=== PATIENT | female | born 1945 | race Caucasian/White ===

== ENCOUNTER 2016-09-23 06:24 | Inpatient (IN) | payer MEDICARE ==
[2016-09-23 08:20] LABS: HEMATOCRIT 45.4 % (36.0-47.0); HEMOGLOBIN 14.9 g/dL (12.0-15.5); HGB HCT DIFFERENCE -0.7; MEAN CORPUSCULAR HEMOGLOBIN 29.1 pg (27.0-33.4); MEAN CORPUSCULAR HGB CONC 32.7 g/dL (32.0-36.0); MEAN CORPUSCULAR VOLUME 89 fl (80-97); RED CELL DISTRIBUTION WIDTH 14.7 % (11.5-14.0); WHITE BLOOD COUNT 11.1 10^3/uL (4.0-10.5)
[2016-09-23 08:35] LABS: LYMPHOCYTES % (MANUAL) 4 % (13-45); TOTAL CELLS COUNTED 100
[2016-09-23 08:36] LABS: BASOPHILS % (MANUAL) 0 % (0-2); EOSINOPHILS % (MANUAL) 4 % (0-6); HYPOCHROMASIA SLIGHT; PLATELET CLUMPS PRESENT
[2016-09-23 09:00] LABS: BLOOD UREA NITROGEN 19 mg/dL (7-20); CALCIUM 9.1 mg/dL (8.4-10.2); CREATININE RESULT 0.66 mg/dL (0.52-1.25); GLUCOSE 99 mg/dL (75-110)
[2016-09-23 09:01] LABS: ALANINE AMINOTRANSFERASE 37 U/L (9-52); ALBUMIN 3.2 g/dL (3.5-5.0); ALKALINE PHOSPHATASE 107 U/L (38-126); ANION GAP 6 (5-19); ASPARTATE AMINO TRANSFERASE 33 U/L (14-36); BILIRUBIN,TOTAL 0.5 mg/dL (0.2-1.3); CARBON DIOXIDE 35 mmol/L (22-30); CHLORIDE 100 mmol/L (98-107); CREATINE KINASE 47 U/L (30-135); POTASSIUM 4.7 mmol/L (3.6-5.0); TOTAL PROTEIN 7.6 g/dL (6.3-8.2)
[2016-09-23 09:12] LABS: CREATINE KINASE MB 2.28 ng/mL (<4.55); TROPONIN I 0.017 ng/mL
[2016-09-23 10:05] LABS: VENOUS BLOOD BASE EXCESS 8.1 mmol/L; VENOUS BLOOD HCO3 39.2 mmol/L (20-32); VENOUS BLOOD PH 7.28 (7.30-7.42)
[2016-09-23 10:07] LABS: APPEARANCE,URINE CLOUDY; BILIRUBIN,URINE NEGATIVE (NEGATIVE); GLUCOSE, URINE NEGATIVE (NEGATIVE); KETONES,URINE NEGATIVE (NEGATIVE); LEUKOCYTE ESTERASE,URINE NEGATIVE (NEGATIVE); NITRITE,URINE NEGATIVE (NEGATIVE); PROTEIN,URINE 30 mg/dL (NEGATIVE); UROBILINOGEN,URINE NEGATIVE mg/dL (<2.0)
[2016-09-23 10:08] LABS: URINE SPECIFIC GRAVITY 1.023
[2016-09-23 10:09] LABS: VENOUS BLOOD PCO2 86.4 mmHg (35-63)
--- NOTE | 2016-09-23 11:04 | EKG REPORT ---
SEVERITY:- NORMAL ECG - SINUS RHYTHM : Confirmed by: Jamal Wu MD 23-Sep-2016 11:03:19
--- NOTE | 2016-09-23 11:44 | ER Document Report ---
ED General - General Chief Complaint: Weakness Stated Complaint: WEAK LEGS TRAVEL OUTSIDE OF THE [place] IN LAST 30 DAYS: No - HPI Patient complains to provider of: generalized weakness Notes: Patient coming in for complaint of generalized weakness. Patient states recent changes to her blood pressure medications from them filled to losartan. Patient states since that time increased weakness. Patient upon arrival some of the very tachypneic and hypoxic was on 2 L nasal cannula. Patient denies any other past medical history. Patient does state she has significant orthopedic surgery to her legs however this was very remote. Patient denies any recent travels fevers chills nausea vomiting chest pain abdominal pain. - Related Data Allergies/Adverse Reactions: nut - unspecified Allergy (Verified 09/23/16 06:45) chocolate Allergy (Uncoded 09/23/16 06:44) wasp Allergy (Uncoded 09/23/16 06:45) Home Medications: Current Home Medications Diazepam [Diazepam] 2 mg PO BID PRN 09/23/16 [History] Losartan Potassium 25 mg PO QAM 09/23/16 [History] Sulindac [Sulindac] 200 mg PO BID 09/23/16 [History] Past Medical History - Social History Smoking Status: Unknown if Ever Smoked Family History: Reviewed & Not Pertinent - Past Medical History Cardiac Medical History: Reports: Hx Hypertension Past Surgical History: Reports: Hx Orthopedic Surgery - left tib/fib Review of Systems - Review of Systems Constitutional: Weakness EENT: No symptoms reported Cardiovascular: No symptoms reported Respiratory: No symptoms reported Gastrointestinal: No symptoms reported Genitourinary: No symptoms reported Female Genitourinary: No symptoms reported Musculoskeletal: No symptoms reported Skin: No symptoms reported Hematologic/Lymphatic: No symptoms reported Neurological/Psychological: No symptoms reported -: Yes All other systems reviewed and negative Physical Exam - Vital signs Vitals: Resp Pulse Ox 32 H 95 09/23/16 06:34 09/23/16 06:34 Interpretation: Hypoxic, Tachypneic - General General appearance: Appears well, Alert Notes: Very obese - HEENT Head: Normocephalic, Atraumatic Eyes: Normal Pupils: PERRL - Respiratory Respiratory status: Tachypnea Chest status: Nontender Breath sounds: Normal Chest palpation: Normal - Cardiovascular Rhythm: Regular Heart sounds: Normal auscultation Murmur: No - Abdominal Inspection: Normal Distension: No distension Bowel sounds: Normal Tenderness: Nontender Organomegaly: No organomegaly - Back Back: Normal, Nontender - Extremities General upper extremity: Normal inspection, Nontender, Normal color, Normal ROM , Normal temperature General lower extremity: Normal inspection, Nontender, Normal color, Normal ROM , Normal temperature, Normal weight bearing, Other - Scars on the lower extremities with venous stasis changes. Bilateral unkept feet. No: Shania's sign - Neurological Neuro grossly intact: Yes Cognition: Normal Orientation: AAOx4 [place] Coma Scale Eye Opening: Spontaneous [place] Coma Scale Verbal: Oriented [place] Coma Scale Motor: Obeys Commands [place] Coma Scale Total: 15 Speech: Normal Motor strength normal: LUE, RUE, LLE, RLE Sensory: Normal - Psychological Associated symptoms: Normal affect, Normal mood - Skin Skin Temperature: Warm Skin Moisture: Dry Skin Color: Normal Course - Re-evaluation Re-evalutation: 09/23/16 15:20 Patient's initial blood gas does show hypercarbia with acidosis. More likely this is a etiology the patient's her last weakness as that everything else is normal. Patient underwent a CTA that was negative this admission chronic changes to the lung. More likely possible etiology would be pickwickian in nature. Patient case was scars with hospitalist for further evaluation. - Vital Signs Vital signs: Temp Pulse Resp BP Pulse Ox 98.3 F 20 147/81 H 97 09/23/16 07:20 09/23/16 14:01 09/23/16 14:01 09/23/16 14:01 - Laboratory Result Diagrams: 09/23/16 07:38 09/23/16 08:30 Laboratory results interpreted by me: 09/23/16 09/23/16 09/23/16 07:38 08:30 08:30 WBC 11.1 H RDW 14.7 H Seg Neuts % (Manual) 84 H Lymphocytes % (Manual) 4 L Abs Neuts (Manual) 9.3 H Abs Lymphs (Manual) 0.4 L VBG pH VBG pCO2 VBG HCO3 Carbon Dioxide 35 H Albumin 3.2 L Urine Protein Urine Blood Salicylates < 1.0 L 09/23/16 09/23/16 09:27 09:40 WBC RDW Seg Neuts % (Manual) Lymphocytes % (Manual) Abs Neuts (Manual) Abs Lymphs (Manual) VBG pH 7.28 L VBG pCO2 86.4 H* VBG HCO3 39.2 H Carbon Dioxide Albumin Urine Protein 30 H Urine Blood LARGE H Salicylates Critical Care Note - Critical Care Note Total time excluding time spent on procedures (mins): 35 Comments: multiple evaluation for hypoxia and tachypnea. Managing BiPAP Discharge - Discharge Clinical Impression: Acute respiratory failure with hypoxia and hypercapnia, Generalized weakness, Chronic venous stasis dermatitis of both lower extremities Morbid obesity Qualifiers: Obesity type: due to excess calories Qualified Code(s): E66.01 - Morbid (severe ) obesity due to excess calories Condition: Good Disposition: ADMITTED INPATIENT Admitting Provider: Mary[facility] Admitted: [facility]
[2016-09-23] MEDS ORDERED: NORMAL SALINE 1000 ML 1,000 ML IV PRN (12:18)
[2016-09-23] MEDS ORDERED: MAGNESIUM HYDROXIDE SUSP 30 ML UDCUP PO PRN (12:18)
[2016-09-23] MEDS ORDERED: ACETAMINOPHEN 325 MG TABLET PO PRN (12:18)
[2016-09-23] MEDS ORDERED: OXYCODONE-ACETAMINOPHEN 5-325 MG TABLET PO PRN (12:18)
[2016-09-23 12:47] LABS: PHOSPHORUS 4.2 mg/dL (2.5-4.5)
[2016-09-23 13:00] LABS: PROTHROMBIN TIME 12.6 SEC (11.4-15.4)
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
[2016-09-23 15:34] LABS: ARTERIAL BLOOD BASE EXCESS 4.3 mmol/L; ARTERIAL BLOOD O2 SATURATION 96.4 % (94-98)
[2016-09-23 15:39] LABS: TROPONIN I < 0.012 ng/mL
[2016-09-23] MEDS: MINERAL OIL/PETROLATUM,WHITE CREAM 114 GM TP SCH (17:51)
[2016-09-23] MEDS: FAMOTIDINE INJ/PF 20 MG/2 ML SDV IV SCH (21:58)
[2016-09-23] MEDS: NYSTATIN TOPICAL POWDER 15 GM TP SCH (22:00)
[2016-09-24 05:11] LABS: ABSOLUTE LYMPHOCYTES (AUTO) 0.4 10^3/uL (0.5-4.7); ABSOLUTE MONOCYTES (AUTO) 0.6 10^3/uL (0.1-1.4); ABSOLUTE NEUT (AUTO) 4.4 10^3/uL (1.7-8.2); BASOPHILS % (AUTO) 0.4 % (0-2); EOSINOPHILS % (AUTO) 0.9 % (0-6); HEMATOCRIT 42.8 % (36.0-47.0); HEMOGLOBIN 13.6 g/dL (12.0-15.5); LYMPHOCYTES % (AUTO) 7.3 % (13-45); MEAN CORPUSCULAR HEMOGLOBIN 28.6 pg (27.0-33.4); MEAN CORPUSCULAR HGB CONC 31.7 g/dL (32.0-36.0); MEAN CORPUSCULAR VOLUME 90 fl (80-97); MONOCYTES % (AUTO) 11.8 % (3-13); RED BLOOD COUNT 4.75 10^6/uL (3.72-5.28); RED CELL DISTRIBUTION WIDTH 14.8 % (11.5-14.0); SEGMENTED NEUTROPHILS % (AUTO) 79.6 % (42-78); WHITE BLOOD COUNT 5.5 10^3/uL (4.0-10.5)
[2016-09-24 05:22] LABS: BLOOD UREA NITROGEN 20 mg/dL (7-20); CALCIUM 8.4 mg/dL (8.4-10.2); CHLORIDE 102 mmol/L (98-107); CHOLESTEROL 150.79 mg/dL (0-200); CREATININE RESULT 0.65 mg/dL (0.52-1.25); Direct HDL 52 mg/dL (>40); GLUCOSE 100 mg/dL (75-110); POTASSIUM 4.6 mmol/L (3.6-5.0); TRIGLYCERIDES 66 mg/dL (<150)
[2016-09-24 05:32] LABS: DIRECT LDL 80 mg/dL (<100)
[2016-09-24 05:33] LABS: ARTERIAL BLOOD BASE EXCESS 3.5 mmol/L; ARTERIAL BLOOD O2 SATURATION 96.8 % (94-98)
[2016-09-24 06:28] LABS: CARBON DIOXIDE 33 mmol/L (22-30); SODIUM 141.7 mmol/L (137-145)
[2016-09-24 06:32] LABS: ANION GAP 7 (5-19)
[2016-09-24] MEDS: ENOXAPARIN SODIUM INJ 40 MG/0.4 ML DISP.SYRIN SUBCUT SCH (08:40)
[2016-09-24] MEDS: DOCUSATE SODIUM 100 MG CAPSULE PO SCH (09:11)
[2016-09-24] MEDS: NYSTATIN TOPICAL POWDER 15 GM TP SCH ×2 (09:13→22:32)
[2016-09-24] MEDS: FAMOTIDINE INJ/PF 20 MG/2 ML SDV IV SCH ×2 (09:19→22:32)
[2016-09-24] MEDS: ONDANSETRON HCL INJ/PF 4 MG/2 ML SDV IV PRN ×2 (10:07→22:32)
[2016-09-24] MEDS ORDERED: METOPROLOL TARTRATE PF/INJ 5 MG/5 ML SDV IV PRN (10:56)
--- NOTE | 2016-09-24 14:16 | PDOC PROGRESS REPORT ---
Subjective Progress Note for:: 09/24/16 Subjective:: Reason for visit: Follow-up hypercapnic respiratory failure Hospital course: MANNY GLOVER is a 71 year old female patient of Dr. Croft in [place] who presents to the emergency department with a one-week history of progressive weakness, daytime sleepiness, nighttime restlessness and insomnia, intermittent confusion and forgetfulness. She denies fevers, chills, chest pain, palpitations, orthopnea, PND, abdominal pain, nausea, vomiting, diarrhea or constipation. She reports her PCP recently made a change from chronic Ramipril use to losartan because she was convinced it was making her sleepy. She states she would randomly fall asleep during the course of the day and was taking naps for the first time in her life over the course of the last month. Evaluation in the emergency department shows a chronically ill-appearing, small in stature and morbidly obese female with worsening chronic venous stasis and a venous blood gas that shows a pH of 7.28 and a PCO2 of 82 and a renal panel with a bicarbonate of 35. She was placed empirically on BiPAP therapy and we were asked to admit for further evaluation. She reports no prior cardiac history including no congestive heart failure, coronary artery disease or prior cardiac evaluation. Likewise she has never undergone sleep study or been diagnosed with restrictive sleep apnea. She denies episodic waking during the night, snoring, dyspnea with exertion, chronic headaches, myoclonic jerks. She does not take chronic NSAIDs other than the sulindac once or twice a week for chronic low back pain. She is a lifetime nonsmoker. There is a strong family history of thromboembolic disease , her mother in particular suffers from "blood clots". She was admitted to the hospital and has been largely BiPAP dependent since but with little in the way of improvement in her PCO2 or pH. However there's been no decline in her mental status and she has been alert oriented and functional since before admission. CT of the chest showed some chronic interstitial lung disease but no pulmonary embolus and no COPD, offering no explanation for her hypercapnic respiratory failure. Subjective: She does not feel as well this morning with actually increased work of breathing. Of note, her O2 sat was 88% and she was placed on supplemental oxygen by staff overnight with increase in her saturations to consistently greater than 97%. She was only taken off the BiPAP this morning for breakfast and since that time is also feeling a bit nauseous vomiting once into the BiPAP mask, without overt evidence of aspiration as this occurred with her nurse at the bedside. She denies chest pain, palpitations, abdominal pain, headache, dizziness, confusion, numbness or tingling, myoclonic jerks. ROS: per HPI plus a total of 10 systems reviewed, pertinent positives and negatives noted above, remaining systems negative. Physical Exam Vital Signs: Temp Pulse Resp BP Pulse Ox 99.0 F 83 16 143/71 H 98 09/24/16 12:55 09/24/16 12:55 09/24/16 12:55 09/24/16 12:55 09/24/16 12:55 Intake & Output 09/23/16 09/24/16 09/25/16 06:59 06:59 06:59 Intake Total 777 240 Balance 777 240 Weight 107.5 kg PHYSICAL EXAM GENERAL: Mild respiratory distress evidenced by tachypnea with respiratory rate greater than 20 for me; short in stature, well nourished; morbidly obese; alert and oriented to person, place,, situation HEENT: normocephalic, atraumatic; bilateral conjunctival injection, no scleral icterus; oral mucosa dry, poor dentition; normal ROM; large buffalo hump evident with discoloration of the skin folds of the neck RESPIRATORY: Intercostal accessory muscle use, mild increased WOB, good air entry bilaterally; coarse breath sounds bilateral but no wheezes, rales, rhonchi CARDIO: no JVD; RRR; harsh 2/6 systolic murmur at the second left intercostal space; no tachycardia VASCULAR: no carotid bruit; 2+ radial, 1+ DP pulse; diminished normal capillary refill at the great toes GI: soft; nondistended; normal bowel sounds; no rebound, rigidity, guarding; nontender; skin fold of the pannus is moist and foul-smelling and the patient treats this at home by placing a bath towel in the skin fold and changing it every other day, the towel was discolored and foul-smelling, the skin at its inner most fold is macerated, revelaed after cleaning by staffred NEURO: normal patella reflexes; normal sensation; normal motor function; no dysarthria; tongue protrudes midline; MSK: 4/5 strength; normal ROM hips; no tenderness EXTREMITIES: no calf tender; no palpable cords in calf; no clubbing, cyanosis , 2+ pedal edema PSYCH: normal affect, normal mood SKIN: Cool and dry; no petechiae; no telengectasias; no jaundice; chronic acrocyanotic and hypertrophic changes to the skin below the knees, left pretibial skin is badly scarred and misshapen, severely hypertrophic toenails such that the nails of the great toe extend beyond and into the skin of second and third toes Results Laboratory Results: 09/24/16 03:48 09/24/16 03:48 09/23/16 09/24/16 09/24/16 15:20 03:48 03:48 WBC 5.5 RBC 4.75 Hgb 13.6 Hct 42.8 MCV 90 MCH 28.6 MCHC 31.7 L RDW 14.8 H Plt Count 183 Seg Neutrophils % 79.6 H Lymphocytes % 7.3 L Monocytes % 11.8 Eosinophils % 0.9 Basophils % 0.4 Absolute Neutrophils 4.4 Absolute Lymphocytes 0.4 L Absolute Monocytes 0.6 Absolute Eosinophils 0.0 Absolute Basophils 0.0 Carbonic Acid 2.10 H HCO3/H2CO3 Ratio 15:1 ABG pH 7.30 L ABG pCO2 69.8 H* ABG pO2 96.2 ABG HCO3 33.4 H ABG O2 Saturation 96.4 ABG Base Excess 4.3 FiO2 40% Sodium 141.7 Potassium 4.6 Chloride 102 Carbon Dioxide 33 H Anion Gap 7 BUN 20 Creatinine 0.65 Est GFR ( Amer) > 60 Est GFR (Non-Af Amer) > 60 Glucose 100 Calcium 8.4 Triglycerides 66 Cholesterol 150.79 LDL Cholesterol Direct 80 VLDL Cholesterol 13.0 HDL Cholesterol 52 Vitamin B12 945.0 H 09/24/16 04:35 WBC RBC Hgb Hct MCV MCH MCHC RDW Plt Count Seg Neutrophils % Lymphocytes % Monocytes % Eosinophils % Basophils % Absolute Neutrophils Absolute Lymphocytes Absolute Monocytes Absolute Eosinophils Absolute Basophils Carbonic Acid 2.39 H HCO3/H2CO3 Ratio 14:1 ABG pH 7.25 L ABG pCO2 79.5 H* ABG pO2 107.0 H ABG HCO3 33.7 H ABG O2 Saturation 96.8 ABG Base Excess 3.5 FiO2 40% Sodium Potassium Chloride Carbon Dioxide Anion Gap BUN Creatinine Est GFR ( Amer) Est GFR (Non-Af Amer) Glucose Calcium Triglycerides Cholesterol LDL Cholesterol Direct VLDL Cholesterol HDL Cholesterol Vitamin B12 09/23/16 14:50 Troponin I < 0.012 NT-Pro-B Natriuret Pep 261 Labs reviewed, bicarbonate renal panel is largely unchanged, arterial blood gas likewise largely unchanged in spite of BiPAP therapy, BNP is normal, cardiac enzymes negative. Impressions: Chest X-Ray 09/23/16 06:53 IMPRESSION: Hypoventilatory changes. Chest/Abdomen CTA 09/23/16 11:34 IMPRESSION: 1. No PE. 2. Atelectasis. Chronic interstitial lung disease. 3. Small nodule right lower lobe will need followup. Assessment & Plan - Diagnosis (1) Acute hypercapnic respiratory failure Is this a current diagnosis for this admission?: YesPlan: I suspect this is a chronic problem for her as she was not confused or lethargic for me on presentation. I also suspect this likely accounts for the vast majority of her presenting complaints. Awaiting results from echocardiogram this morning looking for pulmonary hypertension, cor pulmonale. I strongly recommend outpatient sleep study for obstructive sleep apnea and as such will consult for his recommendations. Likewise recommend obtaining oxygen saturations of only 88-92% so as not to adversely shift Starling curve against her thereby altering her respiratory drive. Dr. Vidal is reportedly available for consultation on 09/26/2016 and she would likely benefit from formal PFTs to quantify degree of suspected restrictive lung disease. (2) Pickwickian syndrome Is this a current diagnosis for this admission?: YesPlan: As above. (3) Chronic venous stasis dermatitis of both lower extremities Is this a current diagnosis for this admission?: YesPlan: Cover with Eucerin cream daily and monitor for deterioration, adding systemic antibiotic should her condition deteriorate. (4) Morbid obesity Qualifiers: Obesity type: due to excess calories Qualified Code(s): E66.01 - Morbid (severe) obesity due to excess calories Is this a current diagnosis for this admission?: YesPlan: Dietary nutritional counseling. Strongly recommend at least a 10% weight reduction. (5) Generalized weakness Is this a current diagnosis for this admission?: YesPlan: Likely secondary to #1. B12 and TSH levels both within normal limits. (6) Accelerated essential hypertension Is this a current diagnosis for this admission?: YesPlan: Likely worsened by her rest or stress. We will add low-dose beta maura and resume her losartan therapy and titrate to effect. - Time Time Spent with patient: 25-34 minutes Anticipated discharge: Home Within: within 72 hours
[2016-09-24] MEDS: LOSARTAN POTASSIUM 50 MG TABLET PO SCH (14:43)
[2016-09-24] MEDS: METOPROLOL SUCCINATE 25 MG TAB.SR.24H PO SCH (14:43)
[2016-09-24] MEDS: MINERAL OIL/PETROLATUM,WHITE CREAM 114 GM TP SCH (18:11)
--- NOTE | 2016-09-24 18:52 | XCELERA REPORT ---
[address] [address] Transthoracic Echocardiogram Report Name: MANNY GLOVER Age: 71 yrs Gender: Female : 1945 Patient Status: Inpatient Patient Location: [id number]\S\324\S\A Study Date: 09/24/2016 01:45 PM Height: 60 in Weight: 233 lb BSA: 2.0 m2 Procedure: A complete two-dimensional transthoracic echocardiogram was performed (2D, M-mode, spectral and color flow Doppler). The study was technically difficult with many images being suboptimal in quality. Reason For Study: pickwickian syndrome Ordering Physician: ILYA LUIS Performed By: Sunny Wong Interpretation Summary The study was technically difficult with many images being suboptimal in quality. The left ventricular ejection fraction is preserved. There is mild concentric left ventricular hypertrophy. The left ventricle is grossly normal size. Doppler measurements suggest pseudonormalized left ventricular relaxation, which is associated with grade II/IV or mild to moderate diastolic dysfunction Not all wall segments were well visualized. The right ventricular systolic function is normal. The left atrial size is normal. The right atrium is mildly dilated. There is a trace amount of mitral regurgitation There is no mitral valve stenosis. There is no aortic valve stenosis No aortic regurgitation is present. There is a trace or physiologic amount of tricuspid regurgitation Tricuspid regurgitation jet envelope not well defined to measure RV systolic pressure accurately. There is no pericardial effusion. MMode/2D Measurements \T\ Calculations RVDd: 2.2 cm LVIDd: 3.9 cm FS: 29.5 % Ao root diam: 2.8 cm IVSd: 1.1 cm LVIDs: 2.8 cm EDV(Teich): 67.4 ml LVPWd: 0.93 cm ESV(Teich): 28.9 ml Ao root area: 6.3 cm2 EF(Teich): 57.1 % LA dimension: 4.0 cm Doppler Measurements \T\ Calculations MV E max natacha: MV P1/2t max natacha: Ao V2 max: LV V1 max P.3 cm/sec 111.1 cm/sec 206.7 cm/sec 3.0 mmHg MV A max natacha: MV P1/2t: 53.5 msec Ao max PG: LV V1 max: 151.8 cm/sec 17.1 mmHg 86.4 cm/sec MV E/A: 0.74 MVA(P1/2t): 4.1 cm2 MV dec slope: 608.1 cm/sec2 MV dec time: 0.18 sec PA V2 max: TR max natacha: RAP systole: 71.6 cm/sec 204.0 cm/sec 10.0 mmHg PA max P.0 mmHgTR max P.6 mmHg RVSP(TR): 26.6 mmHg Left Ventricle The left ventricle is grossly normal size. There is mild concentric left ventricular hypertrophy. The left ventricular ejection fraction is preserved. Doppler measurements suggest pseudonormalized left ventricular relaxation, which is associated with grade II/IV or mild to moderate diastolic dysfunction. Not all wall segments were well visualized. Right Ventricle The right ventricle is mildly dilated. The right ventricle appears to be hypertrophied. The right ventricular systolic function is normal. Atria The right atrium is mildly dilated. The left atrial size is normal. Interarterial septum not well visualized and not well dopplered. Cannot comment on ASD/PFO presence. Mitral Valve The mitral valve is grossly normal. There is no mitral valve stenosis. There is a trace amount of mitral regurgitation. Aortic Valve The aortic valve is mildly calcified. There is no aortic valve stenosis. No aortic regurgitation is present. Tricuspid Valve The tricuspid valve is not well visualized secondary to technical limitations. There is no tricuspid stenosis. There is a trace or physiologic amount of tricuspid regurgitation. Tricuspid regurgitation jet envelope not well defined to measure RV systolic pressure accurately. Pulmonic Valve The pulmonic valve is not well visualized. Great Vessels The aortic root is not well visualized. The inferior vena cava appeared normal and decreased < 50% with respiration (RAP 10-15 mmHg). Effusions There is no pericardial effusion. : ILYA LUIS > Ugo Canas
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
--- NOTE | 2016-09-24 21:47 | EKG REPORT ---
SEVERITY:- BORDERLINE ECG - SINUS RHYTHM PROBABLE LEFT ATRIAL ABNORMALITY : Confirmed by: Ugo Canas 24-Sep-2016 21:46:08
[2016-09-24 22:11] LABS: ARTERIAL BLOOD BASE EXCESS 7.1 mmol/L; ARTERIAL BLOOD O2 SATURATION 79.4 % (94-98)
[2016-09-25] MEDS ORDERED: METHYLPREDNISOLONE INJ 125 MG/2 ML SDV IV ONE (11:30)
[2016-09-25] MEDS ORDERED: FUROSEMIDE INJ/PF 20 MG/2 ML SDV IV ONE (11:30)
[2016-09-25] MEDS: METOPROLOL SUCCINATE 25 MG TAB.SR.24H PO SCH (11:40)
[2016-09-25] MEDS: LOSARTAN POTASSIUM 50 MG TABLET PO SCH (11:40)
[2016-09-25] MEDS: DOCUSATE SODIUM 100 MG CAPSULE PO SCH (11:40)
[2016-09-25] MEDS: NORMAL SALINE 1000 ML 1,000 ML IV PRN (11:48)
[2016-09-25] MEDS: FAMOTIDINE INJ/PF 20 MG/2 ML SDV IV SCH ×2 (11:51→21:49)
[2016-09-25] MEDS: LEVOFLOXACIN 750 MG/D5W RTU 750 MG/150 ML RTUPB IV SCH (11:52)
[2016-09-25] MEDS: NYSTATIN TOPICAL POWDER 15 GM TP SCH ×2 (11:52→21:52)
[2016-09-25] MEDS: ENOXAPARIN SODIUM INJ 40 MG/0.4 ML DISP.SYRIN SUBCUT SCH (11:53)
[2016-09-25 11:58] LABS: ARTERIAL BLOOD BASE EXCESS 7.8 mmol/L; ARTERIAL BLOOD O2 SATURATION 90.6 % (94-98)
[2016-09-25] MEDS ORDERED: BUDESONIDE NEB 0.5 MG/2 ML AMPUL NEB ONE (12:00)
--- NOTE | 2016-09-25 14:55 | PDOC PROGRESS REPORT ---
Subjective Progress Note for:: 09/25/16 Subjective:: still extremely dyspneic could not tolerate this morning to be off bypap for a few minutes no chest pains or fever Physical Exam Vital Signs: Temp Pulse Resp BP Pulse Ox 98.6 F 84 13 144/67 H 94 09/25/16 11:21 09/25/16 13:32 09/25/16 13:32 09/25/16 11:21 09/25/16 13:32 Pulse Oximeter Continuous Start: 09/24/16 20: 12 Freq: RTQ4 Status: Active Document 09/25/16 11:40 [facility]: 09/25/16 13:52 [facility] [id number] Pulse Oximetry Assessment Oxygen Saturation (92-100) 97 Fraction of Inspired Oxygen (FIO2) 30 Equipment Usage Equipment in Use Continuous SpO2 Machine # N 2 Additional RT Notes Other With 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 ABSENT: scleral icterus Neck exam: ABSENT: carotid bruit, JVD, lymphadenopathy, thyromegaly Respiratory exam: PRESENT: decreased breath sounds, symmetrical, tachypnea, wheezes Cardiovascular exam: PRESENT: RRR. ABSENT: diastolic murmur, rubs, systolic murmur GI/Abdominal exam: PRESENT: normal bowel sounds, soft. ABSENT: distended, guarding, mass, organolmegaly, rebound, tenderness Extremities exam: PRESENT: other - stasis dermatitis Neurological exam: PRESENT: alert, awake, oriented to person, oriented to place , oriented to time, oriented to situation, CN II-XII grossly intact. ABSENT: motor sensory deficit Results Laboratory Results: 09/24/16 03:48 09/24/16 03:48 09/24/16 09/25/16 21:55 10:12 Carbonic Acid 2.26 H 2.63 H HCO3/H2CO3 Ratio 16:1 14:1 ABG pH 7.30 L 7.27 L ABG pCO2 75.1 H* 87.3 H* ABG pO2 49.4 L 70.0 L ABG HCO3 36.5 H 38.7 H ABG O2 Saturation 79.4 L 90.6 L ABG Base Excess 7.1 7.8 FiO2 30% 30% 09/23/16 14:50 Troponin I < 0.012 NT-Pro-B Natriuret Pep 261 Impressions: Chest X-Ray 09/23/16 06:53 IMPRESSION: Hypoventilatory changes. Chest/Abdomen CTA 09/23/16 11:34 IMPRESSION: 1. No PE. 2. Atelectasis. Chronic interstitial lung disease. 3. Small nodule right lower lobe will need followup. Assessment & Plan - Diagnosis (1) Acute hypercapnic respiratory failure Is this a current diagnosis for this admission?: YesPlan: not much improvement continue bipap PRN continue present management will add steroids , continue nebs (2) Chronic venous stasis dermatitis of both lower extremities Is this a current diagnosis for this admission?: Yes (3) Morbid obesity Qualifiers: Obesity type: unspecified obesity type Qualified Code(s): E66.01 - Morbid (severe) obesity due to excess calories Is this a current diagnosis for this admission?: Yes (4) Pickwickian syndrome Is this a current diagnosis for this admission?: Yes - Time Time Spent with patient: 25-34 minutes
[2016-09-25] MEDS: METHYLPREDNISOLONE INJ 125 MG/2 ML SDV IV SCH (17:45)
[2016-09-25] MEDS: MINERAL OIL/PETROLATUM,WHITE CREAM 114 GM TP SCH (17:45)
[2016-09-25] MEDS: IPRATROPIUM/ALBUTEROL 0.5-2.5 MG/3 ML AMPUL NEB PRN (20:36)
[2016-09-25] MEDS: BUDESONIDE NEB 0.5 MG/2 ML AMPUL NEB SCH (20:37)
[2016-09-25] MEDS: FUROSEMIDE INJ/PF 20 MG/2 ML SDV IV SCH (21:49)
--- NOTE | 2016-09-25 22:48 | PDOC PROGRESS REPORT ---
Subjective Progress Note for:: 09/25/16 Subjective:: Patient seems to be doing better with gradual improvement. Patient still however very sleepy and is wearing bilevel therapy. Pt is denying any chest arm or neck discomfort. Patient denying any PND, orthopnea. Patient denied any sustained palpitations, dizziness, syncope, near syncope. Patient denying any fever chills. Patient denying any other significant discomfort. Patient is maintaining sinus rhythm. Patient was more alert, however arterial blood gases obtained later on showed some worsening. Review of systems: Rest review of systems negative. Medications: Medications have been reviewed. Physical Exam Vital Signs: Temp Pulse Resp BP Pulse Ox 98.1 F 100 20 126/66 H 96 09/25/16 19:45 09/25/16 20:37 09/25/16 20:37 09/25/16 19:45 09/25/16 20:37 Pulse Oximeter Continuous Start: 09/24/16 20: 12 Freq: RTQ4 Status: Active Document 09/25/16 20:37 [facility] (Rec: 09/25/16 22:05 [facility] [email or web address]) Pulse Oximetry Assessment Oxygen Saturation (92-100) 96 Oxygen Flow Rate (L/min) 3 Oxygen Delivery Method Nasal Cannula Equipment Usage Equipment in Use Continuous SpO2 Machine # [id number] Intake & Output 09/24/16 09/25/16 09/26/16 06:59 06:59 06:59 Intake Total 777 1016 756 Output Total 0 1000 Balance 777 1016 -244 Weight 107.5 kg 107 kg Exam: GENERAL: well-nourished and in no acute distress. Alert and oriented x3 HEAD: Atraumatic, normocephalic. EYES: Pupils equal round and reactive to light, extraocular movements intact, sclera anicteric, conjunctiva are normal. ENT: TMs normal, nares patent, oropharynx clear without exudates. Moist mucous membranes. No oral ulcerations or bleeding gums noted NECK: supple without lymphadenopathy. Trachea is central. No cervical or axillary lymphadenopathy noted. Carotids are 2+, JVD WNL LUNGS: Respiration seems nonlabored, no significant accessory muscle action noted. Breath sounds clear to auscultation bilaterally and equal noted. No wheezes rales or rhonchi noted. No significant dullness noted on percussion. CHEST: Palpation of the chest wall shows no significant chest wall tenderness. No other significant abnormalities noted. 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 ABDOMEN: Soft, no significant tenderness appreciated, normoactive bowel sounds. No guarding, no rebound. No rigidity noted . No masses appreciated. EXTREMITIES: Pedal pulses are 1-2+, no calf tenderness noted. No clubbing or cyanosis.1+ pedal edema noted. Chronic dermatitis changes are noted. NEUROLOGICAL: Focused neurological exam showed no significant neurologic deficit. Normal speech, no focal weakness appreciated. PSYCH: Normal mood, normal affect. Judgment and insight within normal limits. SKIN: No significant ecchymosis, chronic dermatitis rash both lower legs but no ulcerations or signs of pruritus noted. MUSCULOSKELETAL EXAM: No significant joint swelling noted. Results Laboratory Results: 09/24/16 03:48 09/24/16 03:48 09/25/16 10:12 Carbonic Acid 2.63 H HCO3/H2CO3 Ratio 14:1 ABG pH 7.27 L ABG pCO2 87.3 H* ABG pO2 70.0 L ABG HCO3 38.7 H ABG O2 Saturation 90.6 L ABG Base Excess 7.8 FiO2 30% 09/23/16 14:50 Troponin I < 0.012 NT-Pro-B Natriuret Pep 261 Impressions: Chest X-Ray 09/23/16 06:53 IMPRESSION: Hypoventilatory changes. Chest/Abdomen CTA 09/23/16 11:34 IMPRESSION: 1. No PE. 2. Atelectasis. Chronic interstitial lung disease. 3. Small nodule right lower lobe will need followup. Assessment & Plan - Diagnosis (1) Acute hypercapnic respiratory failure Is this a current diagnosis for this admission?: Yes (2) Hypertension Qualifiers: Hypertension type: essential hypertension Qualified Code(s): I10 - Essential (primary) hypertension Is this a current diagnosis for this admission?: Yes (3) Chronic venous stasis dermatitis of both lower extremities Is this a current diagnosis for this admission?: Yes (4) Morbid obesity Qualifiers: Obesity type: unspecified obesity type Qualified Code(s): E66.01 - Morbid (severe) obesity due to excess calories Is this a current diagnosis for this admission?: Yes (5) Pickwickian syndrome Is this a current diagnosis for this admission?: Yes - Notes Notes: Acute on chronic hypercapnic respiratory failure: Most likely related to obesity hypoventilation syndrome. Patient may have underlying pulmonary fibrosis or other parenchymal disease. Pulmonary is consulting. Agree with aggressive bronchodilator therapy and also steroid therapy. Patient may end up on a ventilator. Mask noted to be leaking. Hypertension: Blood pressure under satisfactory control. Pickwickian syndrome: Patient to wear bilevel therapy. Discussed therapy with respiratory therapist. They're going to follow this patient very closely as regards bilevel therapy. Patient most likely will need ASV. Have recommended that EPAP be increased. Morbid obesity: Patient will benefit from weight loss. Patient to report any further problems - Time Time with patient: 15-25 minutes - CODE STATUS was discussed, patient remains full code. Surrogate decision-maker unchanged. Multiple medical problems were addressed.More than 50% of the time spent coordinating care, discussing management plans with involved caregivers. Management plans discussed with involved personnels. Medical decision making was of moderate complexity.
[2016-09-26] MEDS: METHYLPREDNISOLONE INJ 125 MG/2 ML SDV IV SCH ×3 (02:27→19:00)
[2016-09-26] MEDS: BUDESONIDE NEB 0.5 MG/2 ML AMPUL NEB SCH ×2 (08:27→20:34)
[2016-09-26] MEDS: IPRATROPIUM/ALBUTEROL 0.5-2.5 MG/3 ML AMPUL NEB PRN (08:32)
--- NOTE | 2016-09-26 09:44 | EKG REPORT ---
SEVERITY:- ABNORMAL ECG - SINUS RHYTHM LEFT ATRIAL ABNORMALITY ABNRM R PROG, CONSIDER ASMI OR LEAD PLACEMENT : Confirmed by: Ugo Canas 26-Sep-2016 09:43:57
[2016-09-26] MEDS: LEVOFLOXACIN 750 MG/D5W RTU 750 MG/150 ML RTUPB IV SCH (12:48)
[2016-09-26] MEDS: LOSARTAN POTASSIUM 50 MG TABLET PO SCH (12:57)
[2016-09-26] MEDS: DOCUSATE SODIUM 100 MG CAPSULE PO SCH (12:57)
[2016-09-26] MEDS: METOPROLOL SUCCINATE 25 MG TAB.SR.24H PO SCH (12:58)
[2016-09-26] MEDS: FUROSEMIDE INJ/PF 20 MG/2 ML SDV IV SCH ×2 (12:59→21:15)
[2016-09-26] MEDS: FAMOTIDINE INJ/PF 20 MG/2 ML SDV IV SCH ×2 (12:59→21:15)
[2016-09-26] MEDS: ENOXAPARIN SODIUM INJ 40 MG/0.4 ML DISP.SYRIN SUBCUT SCH (13:04)
[2016-09-26] MEDS: NYSTATIN TOPICAL POWDER 15 GM TP SCH ×2 (13:08→21:15)
--- NOTE | 2016-09-26 16:09 | PDOC PROGRESS REPORT ---
Subjective Progress Note for:: 09/26/16 Subjective:: Patient is improved off bipap most of the day , alert and awake Physical Exam Vital Signs: Temp Pulse Resp BP Pulse Ox 98.2 F 72 19 138/78 H 96 09/26/16 15:20 09/26/16 15:20 09/26/16 15:20 09/26/16 15:20 09/26/16 15:20 Pulse Oximeter Continuous Start: 09/24/16 20: 12 Freq: RTQ4 Status: Active Document 09/26/16 11:42 LBR (Rec: 09/26/16 11:43 LBR [email or web address]) Pulse Oximetry Assessment Oxygen Saturation (92-100) 96 Oxygen Flow Rate (L/min) 3 Oxygen Delivery Method Nasal Cannula Fraction of Inspired Oxygen (FIO2) 32 Equipment Usage Equipment in Use Continuous SpO2 Machine # N-2 Intake & Output 09/25/16 09/26/16 09/27/16 00:59 00:59 00:59 Intake Total 1655 1041 583 Output Total 2200 975 Balance 1658 -1159 -392 Weight 107.5 kg 107 kg 103.3 kg General appearance: PRESENT: no acute distress, mild distress, morbidly obese Head exam: PRESENT: atraumatic, normocephalic Eye exam: PRESENT: conjunctiva pink, EOMI, PERRLA. ABSENT: scleral icterus Ear exam: PRESENT: normal external ear exam Mouth exam: PRESENT: moist, tongue midline Neck exam: ABSENT: carotid bruit, JVD, lymphadenopathy, thyromegaly Respiratory exam: PRESENT: decreased breath sounds, wheezes. ABSENT: rales, rhonchi Cardiovascular exam: PRESENT: RRR. ABSENT: diastolic murmur, rubs, systolic murmur Pulses: PRESENT: normal dorsalis pedis pul Vascular exam: PRESENT: normal capillary refill GI/Abdominal exam: PRESENT: normal bowel sounds, soft. ABSENT: distended, guarding, mass, organolmegaly, rebound, tenderness Rectal exam: PRESENT: deferred Extremities exam: PRESENT: full ROM. ABSENT: calf tenderness, clubbing, pedal edema Neurological exam: PRESENT: alert, awake, oriented to person, oriented to place , oriented to time, oriented to situation, CN II-XII grossly intact. ABSENT: motor sensory deficit Psychiatric exam: PRESENT: appropriate affect, normal mood. ABSENT: homicidal ideation, suicidal ideation Skin exam: PRESENT: dry, intact, warm. ABSENT: cyanosis, rash Results Laboratory Results: 09/24/16 03:48 09/24/16 03:48 09/23/16 14:50 Troponin I < 0.012 NT-Pro-B Natriuret Pep 261 Impressions: Chest X-Ray 09/23/16 06:53 IMPRESSION: Hypoventilatory changes. Chest/Abdomen CTA 09/23/16 11:34 IMPRESSION: 1. No PE. 2. Atelectasis. Chronic interstitial lung disease. 3. Small nodule right lower lobe will need followup. Assessment & Plan - Diagnosis (1) Acute hypercapnic respiratory failure Is this a current diagnosis for this admission?: Yes (2) Chronic venous stasis dermatitis of both lower extremities Is this a current diagnosis for this admission?: Yes (3) Morbid obesity Qualifiers: Obesity type: unspecified obesity type Qualified Code(s): E66.01 - Morbid (severe) obesity due to excess calories Is this a current diagnosis for this admission?: Yes (4) Pickwickian syndrome Is this a current diagnosis for this admission?: Yes - Time Time Spent with patient: improvement will continue present management will start tapering steroids in am PT eval in am Patient agrees to go to short term rehab if needed [facility] consult Time Spent with patient: 25-34 minutes
[2016-09-26] MEDS: MINERAL OIL/PETROLATUM,WHITE CREAM 114 GM TP SCH (19:01)
[2016-09-27] MEDS: METHYLPREDNISOLONE INJ 125 MG/2 ML SDV IV SCH ×3 (02:44→18:32)
[2016-09-27] MEDS: NORMAL SALINE 1000 ML 1,000 ML IV PRN (05:58)
[2016-09-27] MEDS: BUDESONIDE NEB 0.5 MG/2 ML AMPUL NEB SCH ×2 (08:07→20:07)
[2016-09-27] MEDS: IPRATROPIUM/ALBUTEROL 0.5-2.5 MG/3 ML AMPUL NEB PRN ×2 (08:07→20:07)
[2016-09-27] MEDS: FUROSEMIDE INJ/PF 20 MG/2 ML SDV IV SCH (10:55)
[2016-09-27] MEDS: METOPROLOL SUCCINATE 25 MG TAB.SR.24H PO SCH (10:55)
[2016-09-27] MEDS: LEVOFLOXACIN 750 MG TABLET PO SCH (10:55)
[2016-09-27] MEDS: LOSARTAN POTASSIUM 50 MG TABLET PO SCH (10:55)
[2016-09-27] MEDS: NYSTATIN TOPICAL POWDER 15 GM TP SCH ×2 (10:56→22:11)
[2016-09-27] MEDS: FAMOTIDINE INJ/PF 20 MG/2 ML SDV IV SCH (10:56)
[2016-09-27] MEDS: ENOXAPARIN SODIUM INJ 40 MG/0.4 ML DISP.SYRIN SUBCUT SCH (11:00)
[2016-09-27] MEDS: DOCUSATE SODIUM 100 MG CAPSULE PO SCH (11:12)
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
--- NOTE | 2016-09-27 16:16 | PDOC PROGRESS REPORT ---
Subjective Progress Note for:: 09/27/16 Subjective:: Patient is very much improved ; she is comfortable with nasal oxygen off BiPAP She was seen today by podiatry She is awaiting a bed in rehabilitation She has minimal shortness of breath no chest pain no abdominal pain nausea or vomiting Physical Exam Vital Signs: Temp Pulse Resp BP Pulse Ox 98.0 F 74 19 149/89 H 100 09/27/16 12:13 09/27/16 14:00 09/27/16 12:13 09/27/16 12:13 09/27/16 16:00 Pulse Oximeter Continuous Start: 09/24/16 20: 12 Freq: RTQ4 Status: Active Document 09/27/16 16:00 LDA (Rec: 09/27/16 16:10 LDA [email or web address]) Pulse Oximetry Assessment Oxygen Saturation (92-100) 100 Oxygen Flow Rate (L/min) 3 Oxygen Delivery Method Nasal Cannula Equipment Usage Equipment in Use Continuous SpO2 Machine # n-2 Intake & Output 09/26/16 09/27/16 09/28/16 00:59 00:59 00:59 Intake Total 1041 1333 150 Output Total 2200 7185 700 Balance -1159 -1242 -550 Weight 107 kg 103.3 kg 102.3 kg General appearance: PRESENT: no acute distress Head exam: PRESENT: atraumatic, normocephalic Eye exam: PRESENT: conjunctiva pink, EOMI, PERRLA. ABSENT: scleral icterus Neck exam: ABSENT: carotid bruit, JVD, lymphadenopathy, thyromegaly Respiratory exam: PRESENT: decreased breath sounds, wheezes. ABSENT: accessory muscle use, chest wall tenderness, rhonchi Cardiovascular exam: PRESENT: RRR. ABSENT: bradycardia, clicks, gallop Pulses: PRESENT: normal dorsalis pedis pul Extremities exam: ABSENT: calf tenderness, clubbing, pedal edema Neurological exam: PRESENT: alert, awake, oriented to person, oriented to place , oriented to time, oriented to situation, CN II-XII grossly intact. ABSENT: motor sensory deficit Psychiatric exam: PRESENT: appropriate affect, normal mood. ABSENT: homicidal ideation, suicidal ideation Results Laboratory Results: 09/24/16 03:48 09/24/16 03:48 09/23/16 14:50 Troponin I < 0.012 NT-Pro-B Natriuret Pep 261 Impressions: Chest X-Ray 09/23/16 06:53 IMPRESSION: Hypoventilatory changes. Chest/Abdomen CTA 09/23/16 11:34 IMPRESSION: 1. No PE. 2. Atelectasis. Chronic interstitial lung disease. 3. Small nodule right lower lobe will need followup. Assessment & Plan - Diagnosis (1) Acute hypercapnic respiratory failure Is this a current diagnosis for this admission?: Yes (2) Chronic venous stasis dermatitis of both lower extremities Is this a current diagnosis for this admission?: Yes (3) Morbid obesity Qualifiers: Obesity type: unspecified obesity type Qualified Code(s): E66.01 - Morbid (severe) obesity due to excess calories Is this a current diagnosis for this admission?: Yes (4) Pickwickian syndrome Is this a current diagnosis for this admission?: Yes - Time Time Spent with patient: Continue the present management started tapering down steroids Patient likely will be discharged within 24-48 hours to short-term rehabilitation if a bed is available Time Spent with patient: 15-24 minutes
[2016-09-27] MEDS: FUROSEMIDE 40 MG TABLET PO SCH (18:31)
[2016-09-27] MEDS: MINERAL OIL/PETROLATUM,WHITE CREAM 114 GM TP SCH (18:37)
[2016-09-28] MEDS: METHYLPREDNISOLONE INJ 125 MG/2 ML SDV IV SCH ×3 (02:02→19:00)
[2016-09-28] MEDS: BUDESONIDE NEB 0.5 MG/2 ML AMPUL NEB SCH ×2 (08:07→20:44)
[2016-09-28] MEDS: IPRATROPIUM/ALBUTEROL 0.5-2.5 MG/3 ML AMPUL NEB PRN (08:07)
[2016-09-28 08:08] LABS: ABSOLUTE LYMPHOCYTES (AUTO) 0.6 10^3/uL (0.5-4.7); ABSOLUTE MONOCYTES (AUTO) 0.4 10^3/uL (0.1-1.4); ABSOLUTE NEUT (AUTO) 8.2 10^3/uL (1.7-8.2); BASOPHILS % (AUTO) 0.1 % (0-2); HEMATOCRIT 49.7 % (36.0-47.0); HEMOGLOBIN 16.1 g/dL (12.0-15.5); HGB HCT DIFFERENCE -1.4; LYMPHOCYTES % (AUTO) 6.4 % (13-45); MEAN CORPUSCULAR HEMOGLOBIN 29.1 pg (27.0-33.4); MEAN CORPUSCULAR HGB CONC 32.4 g/dL (32.0-36.0); MEAN CORPUSCULAR VOLUME 90 fl (80-97); MONOCYTES % (AUTO) 4.3 % (3-13); RED BLOOD COUNT 5.53 10^6/uL (3.72-5.28); RED CELL DISTRIBUTION WIDTH 14.6 % (11.5-14.0); SEGMENTED NEUTROPHILS % (AUTO) 89.2 % (42-78); WHITE BLOOD COUNT 9.2 10^3/uL (4.0-10.5)
[2016-09-28 08:33] LABS: BLOOD UREA NITROGEN 38 mg/dL (7-20); CALCIUM 8.9 mg/dL (8.4-10.2); CHLORIDE 90 mmol/L (98-107); CREATININE RESULT 0.56 mg/dL (0.52-1.25); GLUCOSE 123 mg/dL (75-110); POTASSIUM 4.1 mmol/L (3.6-5.0); SODIUM 142.4 mmol/L (137-145)
[2016-09-28 08:59] LABS: ANION GAP 8 (5-19)
[2016-09-28 09:03] LABS: CARBON DIOXIDE 44 mmol/L (22-30)
--- NOTE | 2016-09-28 11:44 | PDOC PROGRESS REPORT ---
Subjective Progress Note for:: 09/28/16 Subjective:: somewhat dyspneic today no chest pains fever or chills off bipap during the day Physical Exam Vital Signs: Temp Pulse Resp BP Pulse Ox 97.5 F 72 18 130/108 H 94 09/28/16 04:48 09/28/16 07:00 09/28/16 04:48 09/28/16 04:48 09/28/16 04:48 Pulse Oximeter Continuous Start: 09/24/16 20: 12 Freq: RTQ4 Status: Active Document 09/28/16 04:27 JSM (Rec: 09/28/16 04:58 JSM [email or web address]) Pulse Oximetry Assessment Oxygen Saturation (92-100) 93 Oxygen Flow Rate (L/min) 3 Oxygen Delivery Method Nasal Cannula Fraction of Inspired Oxygen (FIO2) 32 Equipment Usage Equipment in Use Continuous SpO2 Machine # 2 Intake & Output 09/27/16 09/28/16 09/29/16 00:59 00:59 00:59 Intake Total 1333 1425 257 Output Total 3435 1550 480 Balance -1242 -125 -223 Weight 103.3 kg 102.3 kg 103.5 kg General appearance: PRESENT: no acute distress, cooperative, obese Head exam: PRESENT: atraumatic, normocephalic Eye exam: PRESENT: conjunctiva pink, EOMI, PERRLA. ABSENT: scleral icterus Neck exam: ABSENT: carotid bruit, JVD, lymphadenopathy, thyromegaly Respiratory exam: PRESENT: decreased breath sounds, wheezes - bilaterally Cardiovascular exam: PRESENT: RRR. ABSENT: diastolic murmur, rubs, systolic murmur Pulses: PRESENT: normal dorsalis pedis pul GI/Abdominal exam: PRESENT: normal bowel sounds, soft. ABSENT: distended, guarding, mass, organolmegaly, rebound, tenderness Neurological exam: PRESENT: alert, awake, oriented to person, oriented to place , oriented to time, oriented to situation, CN II-XII grossly intact. ABSENT: motor sensory deficit Skin exam: PRESENT: dry, intact, warm. ABSENT: cyanosis, rash Results Laboratory Results: 09/28/16 07:04 09/28/16 07:04 09/28/16 09/28/16 07:04 07:04 WBC 9.2 RBC 5.53 H Hgb 16.1 H Hct 49.7 H MCV 90 MCH 29.1 MCHC 32.4 RDW 14.6 H Plt Count 192 Seg Neutrophils % 89.2 H Lymphocytes % 6.4 L Monocytes % 4.3 Eosinophils % 0.0 Basophils % 0.1 Absolute Neutrophils 8.2 Absolute Lymphocytes 0.6 Absolute Monocytes 0.4 Absolute Eosinophils 0.0 Absolute Basophils 0.0 Sodium 142.4 Potassium 4.1 Chloride 90 L Carbon Dioxide 44 H* Anion Gap 8 BUN 38 H Creatinine 0.56 Est GFR ( Amer) > 60 Est GFR (Non-Af Amer) > 60 Glucose 123 H Calcium 8.9 09/23/16 14:50 Troponin I < 0.012 NT-Pro-B Natriuret Pep 261 Impressions: Chest X-Ray 09/23/16 06:53 IMPRESSION: Hypoventilatory changes. Chest/Abdomen CTA 09/23/16 11:34 IMPRESSION: 1. No PE. 2. Atelectasis. Chronic interstitial lung disease. 3. Small nodule right lower lobe will need followup. Assessment & Plan - Diagnosis (1) Acute hypercapnic respiratory failure Is this a current diagnosis for this admission?: Yes (2) Chronic venous stasis dermatitis of both lower extremities Is this a current diagnosis for this admission?: Yes (3) Morbid obesity Qualifiers: Obesity type: unspecified obesity type Qualified Code(s): E66.01 - Morbid (severe) obesity due to excess calories Is this a current diagnosis for this admission?: Yes (4) Pickwickian syndrome Is this a current diagnosis for this admission?: Yes (5) ANNA (obstructive sleep apnea) Is this a current diagnosis for this admission?: YesPlan: patient to have sleep study as outpatient after discharge - Time Time Spent with patient: continue present management patient agrees to go to short term rehab at discharge will plan to discharge her next week with nasal O2 if needed and bipap at nite Time Spent with patient: 25-34 minutes
[2016-09-28] MEDS: METOPROLOL SUCCINATE 25 MG TAB.SR.24H PO SCH (12:43)
[2016-09-28] MEDS: DOCUSATE SODIUM 100 MG CAPSULE PO SCH (12:43)
[2016-09-28] MEDS: LEVOFLOXACIN 750 MG TABLET PO SCH (12:44)
[2016-09-28] MEDS: LOSARTAN POTASSIUM 50 MG TABLET PO SCH (12:44)
[2016-09-28] MEDS: LANSOPRAZOLE 30 MG TAB.RAP.DR PO SCH (12:44)
[2016-09-28] MEDS: NYSTATIN TOPICAL POWDER 15 GM TP SCH ×2 (12:45→21:31)
[2016-09-28] MEDS: FUROSEMIDE 40 MG TABLET PO SCH ×2 (12:46→19:00)
[2016-09-28] MEDS: ENOXAPARIN SODIUM INJ 40 MG/0.4 ML DISP.SYRIN SUBCUT SCH (12:46)
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
[2016-09-28] MEDS: LEVALBUTEROL HCL NEB 0.63 MG/3 ML AMPUL NEB SCH (16:42)
[2016-09-28] MEDS: MINERAL OIL/PETROLATUM,WHITE CREAM 114 GM TP SCH (19:00)
[2016-09-28] MEDS: GUAIFENESIN 600 MG TABLET.SA PO SCH (19:00)
[2016-09-29] MEDS: LEVALBUTEROL HCL NEB 0.63 MG/3 ML AMPUL NEB SCH ×3 (00:25→15:28)
[2016-09-29] MEDS: METHYLPREDNISOLONE INJ 125 MG/2 ML SDV IV SCH ×2 (02:52→09:53)
[2016-09-29 06:20] LABS: ARTERIAL BLOOD BASE EXCESS 13.8 mmol/L; ARTERIAL BLOOD O2 SATURATION 91.2 % (94-98)
[2016-09-29] MEDS: GUAIFENESIN 600 MG TABLET.SA PO SCH ×2 (06:27→18:30)
[2016-09-29] MEDS: BUDESONIDE NEB 0.5 MG/2 ML AMPUL NEB SCH ×2 (08:32→20:10)
[2016-09-29] MEDS: LOSARTAN POTASSIUM 50 MG TABLET PO SCH (09:40)
[2016-09-29] MEDS: METOPROLOL SUCCINATE 25 MG TAB.SR.24H PO SCH (09:41)
[2016-09-29] MEDS: FUROSEMIDE 40 MG TABLET PO SCH ×2 (09:41→18:25)
[2016-09-29] MEDS: LEVOFLOXACIN 750 MG TABLET PO SCH (09:42)
[2016-09-29] MEDS: DOCUSATE SODIUM 100 MG CAPSULE PO SCH (09:42)
[2016-09-29] MEDS: LANSOPRAZOLE 30 MG TAB.RAP.DR PO SCH (09:52)
[2016-09-29] MEDS: NYSTATIN TOPICAL POWDER 15 GM TP SCH ×2 (09:53→21:39)
[2016-09-29] MEDS ORDERED: MEDROXYPROGESTERONE ACET 10 MG TABLET PO ONE (12:00)
--- NOTE | 2016-09-29 12:52 | PDOC PROGRESS REPORT ---
Subjective Progress Note for:: 09/29/16 Subjective:: Patient is complaining of continued vaginal bleeding today She has no abdominal pain An ultrasound of the pelvis shows thickened endometrial stripe Her breathing is somewhat improved; she is off the BiPAP most of the day She has no fever no chills no chest pain Physical Exam Vital Signs: Temp Pulse Resp BP Pulse Ox 97.5 F 79 20 145/97 H 96 09/29/16 07:22 09/29/16 08:31 09/29/16 08:31 09/29/16 07:22 09/29/16 08:31 Pulse Oximeter Continuous Start: 09/24/16 20: 12 Freq: RTQ4 Status: Active Document 09/29/16 08:31 LBR (Rec: 09/29/16 08:43 LBR [email or web address]) Pulse Oximetry Assessment Oxygen Saturation (92-100) 96 Oxygen Flow Rate (L/min) 4 Oxygen Delivery Method Nasal Cannula Fraction of Inspired Oxygen (FIO2) 36 Equipment Usage Equipment Standby Continuous SpO2 Machine # 2 Intake & Output 09/28/16 09/29/16 09/30/16 00:59 00:59 00:59 Intake Total 1425 872 158 Output Total 1550 1080 200 Balance -125 -208 -42 Weight 102.3 kg 103.5 kg 102.1 kg General appearance: PRESENT: no acute distress Head exam: PRESENT: atraumatic, normocephalic Eye exam: PRESENT: conjunctiva pink, EOMI, PERRLA. ABSENT: scleral icterus Neck exam: ABSENT: carotid bruit, JVD, lymphadenopathy, thyromegaly Respiratory exam: PRESENT: decreased breath sounds. ABSENT: rhonchi, wheezes Cardiovascular exam: PRESENT: RRR. ABSENT: diastolic murmur, rubs, systolic murmur Pulses: PRESENT: normal dorsalis pedis pul GI/Abdominal exam: PRESENT: normal bowel sounds, soft. ABSENT: distended, guarding, mass, organolmegaly, rebound, tenderness Neurological exam: PRESENT: alert, awake, oriented to person, oriented to place , oriented to time, oriented to situation, CN II-XII grossly intact. ABSENT: motor sensory deficit Results Laboratory Results: 09/28/16 07:04 09/28/16 07:04 09/29/16 06:05 Carbonic Acid 1.78 H HCO3/H2CO3 Ratio 23:1 ABG pH 7.46 H ABG pCO2 59.0 H ABG pO2 58.8 L ABG HCO3 41.1 H ABG O2 Saturation 91.2 L ABG Base Excess 13.8 FiO2 4L 09/23/16 14:50 Troponin I < 0.012 NT-Pro-B Natriuret Pep 261 Impressions: Chest/Abdomen CTA 09/23/16 11:34 IMPRESSION: 1. No PE. 2. Atelectasis. Chronic interstitial lung disease. 3. Small nodule right lower lobe will need followup. Chest X-Ray 09/28/16 00:00 IMPRESSION: Bandlike right middle lobe consolidation atelectasis versus pneumonia. This is similar compared to CT chest 09/23/2016 Pelvis Ultrasound 09/28/16 00:00 IMPRESSION: THICKENED ENDOMETRIAL STRIPE FOR POSTMENOPAUSAL WOMAN MEASURING 11 MM. RECOMMEND GYNECOLOGIC CONSULTATION FOR ENDOMETRIAL SAMPLING. ENLARGED UTERUS WITHOUT DISCRETE MASS. OVARIES NOT VISUALIZED. IF NECESSARY, TRANSVAGINAL IMAGING CAN BE PERFORMED. Assessment & Plan - Diagnosis (1) Acute hypercapnic respiratory failure Is this a current diagnosis for this admission?: YesPlan: Continue present management Appreciate the pulmonary consult ;patient's condition is overall improved Continue to to taper steroids (2) Chronic venous stasis dermatitis of both lower extremities Is this a current diagnosis for this admission?: Yes (3) Morbid obesity Qualifiers: Obesity type: unspecified obesity type Qualified Code(s): E66.01 - Morbid (severe) obesity due to excess calories Is this a current diagnosis for this admission?: Yes (4) Pickwickian syndrome Is this a current diagnosis for this admission?: Yes (5) ANNA (obstructive sleep apnea) Is this a current diagnosis for this admission?: Yes (6) Vaginal bleeding Is this a current diagnosis for this admission?: YesPlan: Case was discussed with barrer and tacker Dr. Tsering Kellogg She advised that patient be prescribed Provera 20 mg daily to decrease the bleeding Patient will be referred to our office as an outpatient for endometrial biopsy when clinically stable - Time Time Spent with patient: 25-34 minutes
[2016-09-29] MEDS ORDERED: METHYLPREDNISOLONE INJ 125 MG/2 ML SDV IV SCH (18:00)
[2016-09-29] MEDS: METHYLPREDNISOLONE INJ 40 MG/1 ML SDV IV SCH (18:30)
[2016-09-29] MEDS: MINERAL OIL/PETROLATUM,WHITE CREAM 114 GM TP SCH (18:30)
[2016-09-30] MEDS: LEVALBUTEROL HCL NEB 0.63 MG/3 ML AMPUL NEB SCH ×4 (00:28→23:51)
[2016-09-30] MEDS: METHYLPREDNISOLONE INJ 40 MG/1 ML SDV IV SCH (05:47)
[2016-09-30] MEDS: GUAIFENESIN 600 MG TABLET.SA PO SCH ×2 (05:47→18:03)
[2016-09-30] MEDS: BUDESONIDE NEB 0.5 MG/2 ML AMPUL NEB SCH ×2 (09:05→19:34)
[2016-09-30] MEDS: LOSARTAN POTASSIUM 50 MG TABLET PO SCH (09:55)
[2016-09-30] MEDS: MEDROXYPROGESTERONE ACET 10 MG TABLET PO SCH (09:55)
[2016-09-30] MEDS: LANSOPRAZOLE 30 MG TAB.RAP.DR PO SCH (09:56)
[2016-09-30] MEDS: PREDNISONE 20 MG TABLET PO SCH (09:56)
[2016-09-30] MEDS: METOPROLOL SUCCINATE 25 MG TAB.SR.24H PO SCH (09:56)
[2016-09-30] MEDS: DOCUSATE SODIUM 100 MG CAPSULE PO SCH (09:57)
[2016-09-30] MEDS: LEVOFLOXACIN 750 MG TABLET PO SCH (09:57)
[2016-09-30] MEDS: FUROSEMIDE 40 MG TABLET PO SCH ×2 (09:57→18:03)
[2016-09-30] MEDS: NYSTATIN TOPICAL POWDER 15 GM TP SCH (09:57)
--- NOTE | 2016-09-30 12:29 | PDOC PROGRESS REPORT ---
Subjective Progress Note for:: 09/30/16 Subjective:: Patient is doing very well Shortness of breath has improved; is comfortable on nasal O2; she still uses BiPAP at night She has no fever no chills; the bleeding from the vagina is persistent but not profuse Patient is awaiting transfer to short-term rehabilitation Physical Exam Vital Signs: Temp Pulse Resp BP Pulse Ox 97.4 F 71 16 138/86 H 97 09/30/16 05:57 09/30/16 09:06 09/30/16 09:06 09/30/16 07:29 09/30/16 09:06 Pulse Oximeter Continuous Start: 09/24/16 20: 12 Freq: RTQ4 Status: Complete Document 09/29/16 16:43 LBR (Rec: 09/29/16 16:43 LBR [email or web address]) Pulse Oximetry Assessment Oxygen Saturation (92-100) 95 Oxygen Flow Rate (L/min) 3 Oxygen Delivery Method Nasal Cannula Fraction of Inspired Oxygen (FIO2) 32 Equipment Usage Equipment Discontinued Continuous SpO2 Machine # 2 Intake & Output 09/29/16 09/30/16 10/01/16 00:59 00:59 00:59 Intake Total 872 1478 5 Output Total 1080 700 300 Balance -208 778 -295 Weight 103.5 kg 102.1 kg 101.5 kg General appearance: PRESENT: no acute distress Head exam: PRESENT: atraumatic, normocephalic Eye exam: PRESENT: conjunctiva pink, EOMI, PERRLA. ABSENT: scleral icterus Neck exam: ABSENT: carotid bruit, JVD, lymphadenopathy, thyromegaly Respiratory exam: PRESENT: decreased breath sounds, wheezes. ABSENT: rales, rhonchi Cardiovascular exam: PRESENT: RRR. ABSENT: diastolic murmur, rubs, systolic murmur Pulses: PRESENT: normal dorsalis pedis pul GI/Abdominal exam: PRESENT: normal bowel sounds, soft. ABSENT: distended, guarding, mass, organolmegaly, rebound, tenderness Extremities exam: PRESENT: full ROM. ABSENT: calf tenderness, clubbing, pedal edema Neurological exam: PRESENT: alert, awake, oriented to person, oriented to place , oriented to time, oriented to situation, CN II-XII grossly intact. ABSENT: motor sensory deficit Results Laboratory Results: 09/28/16 07:04 09/28/16 07:04 09/23/16 14:50 Troponin I < 0.012 NT-Pro-B Natriuret Pep 261 Impressions: Chest/Abdomen CTA 09/23/16 11:34 IMPRESSION: 1. No PE. 2. Atelectasis. Chronic interstitial lung disease. 3. Small nodule right lower lobe will need followup. Chest X-Ray 09/28/16 00:00 IMPRESSION: Bandlike right middle lobe consolidation atelectasis versus pneumonia. This is similar compared to CT chest 09/23/2016 Pelvis Ultrasound 09/28/16 00:00 IMPRESSION: THICKENED ENDOMETRIAL STRIPE FOR POSTMENOPAUSAL WOMAN MEASURING 11 MM. RECOMMEND GYNECOLOGIC CONSULTATION FOR ENDOMETRIAL SAMPLING. ENLARGED UTERUS WITHOUT DISCRETE MASS. OVARIES NOT VISUALIZED. IF NECESSARY, TRANSVAGINAL IMAGING CAN BE PERFORMED. Assessment & Plan - Diagnosis (1) Acute hypercapnic respiratory failure Is this a current diagnosis for this admission?: Yes (2) Chronic venous stasis dermatitis of both lower extremities Is this a current diagnosis for this admission?: Yes (3) Morbid obesity Qualifiers: Obesity type: unspecified obesity type Qualified Code(s): E66.01 - Morbid (severe) obesity due to excess calories Is this a current diagnosis for this admission?: Yes (4) Pickwickian syndrome Is this a current diagnosis for this admission?: Yes (5) ANNA (obstructive sleep apnea) Is this a current diagnosis for this admission?: Yes (6) Vaginal bleeding Is this a current diagnosis for this admission?: Yes - Time Time Spent with patient: Continue to taper down steroids Continue present management; Follow-up H&H Patient may be discharged tomorrow to short-term rehabilitation if a bed is available Patient will go to rehabilitation with BiPAP at night trilogy device is not available Time Spent with patient: 25-34 minutes
[2016-09-30] MEDS: MINERAL OIL/PETROLATUM,WHITE CREAM 114 GM TP SCH (18:04)
[2016-10-01 05:03] LABS: ABSOLUTE LYMPHOCYTES (AUTO) 1.4 10^3/uL (0.5-4.7); ABSOLUTE MONOCYTES (AUTO) 0.9 10^3/uL (0.1-1.4); ABSOLUTE NEUT (AUTO) 9.3 10^3/uL (1.7-8.2); BASOPHILS % (AUTO) 0.4 % (0-2); EOSINOPHILS % (AUTO) 0.1 % (0-6); HEMATOCRIT 49.5 % (36.0-47.0); HEMOGLOBIN 16.3 g/dL (12.0-15.5); HGB HCT DIFFERENCE -0.6; LYMPHOCYTES % (AUTO) 12.1 % (13-45); MEAN CORPUSCULAR HGB CONC 32.9 g/dL (32.0-36.0); MEAN CORPUSCULAR VOLUME 88 fl (80-97); MONOCYTES % (AUTO) 7.9 % (3-13); RED BLOOD COUNT 5.61 10^6/uL (3.72-5.28); RED CELL DISTRIBUTION WIDTH 14.2 % (11.5-14.0); SEGMENTED NEUTROPHILS % (AUTO) 79.5 % (42-78); WHITE BLOOD COUNT 11.7 10^3/uL (4.0-10.5)
[2016-10-01 05:17] LABS: BLOOD UREA NITROGEN 54 mg/dL (7-20); CALCIUM 8.5 mg/dL (8.4-10.2); CHLORIDE 92 mmol/L (98-107); CREATININE RESULT 0.82 mg/dL (0.52-1.25); GLUCOSE 114 mg/dL (75-110); POTASSIUM 3.5 mmol/L (3.6-5.0); SODIUM 138.8 mmol/L (137-145)
[2016-10-01 05:24] LABS: ANION GAP 7 (5-19)
[2016-10-01 05:28] LABS: CARBON DIOXIDE 40 mmol/L (22-30)
[2016-10-01] MEDS: GUAIFENESIN 600 MG TABLET.SA PO SCH (06:32)
[2016-10-01] MEDS: BUDESONIDE NEB 0.5 MG/2 ML AMPUL NEB SCH (07:54)
[2016-10-01] MEDS: LEVALBUTEROL HCL NEB 0.63 MG/3 ML AMPUL NEB SCH (07:56)
[2016-10-01] MEDS: LEVOFLOXACIN 750 MG TABLET PO SCH (10:41)
[2016-10-01] MEDS: METOPROLOL SUCCINATE 25 MG TAB.SR.24H PO SCH (10:41)
[2016-10-01] MEDS: LANSOPRAZOLE 30 MG TAB.RAP.DR PO SCH (10:41)
[2016-10-01] MEDS: LOSARTAN POTASSIUM 50 MG TABLET PO SCH (10:41)
[2016-10-01] MEDS: FUROSEMIDE 40 MG TABLET PO SCH (10:41)
[2016-10-01] MEDS: PREDNISONE 20 MG TABLET PO SCH (10:42)
[2016-10-01] MEDS: MEDROXYPROGESTERONE ACET 10 MG TABLET PO SCH (10:44)
[2016-10-01] MEDS: DOCUSATE SODIUM 100 MG CAPSULE PO SCH (10:45)
--- NOTE | 2016-10-01 11:53 | PDOC TRANSFER SUMMARY ---
General - Admit/Disc Date/PCP Admission Date/Primary Care Provider: 09/23/16 12:14 Discharge Date: 10/01/16 - Discharge Diagnosis (1) Acute hypercapnic respiratory failure Is this a current diagnosis for this admission?: YesSummary: acute on chronic hypoxemic hypercarbic respiratory failure secondary to COPD exacerbation, obstructive sleep apnea, obesity hypoventilation syndrome Patient will be discharged on O2 nasal cannula last 3 L/mn She now uses a BiPAP at night Patient will be referred to Dr. Vidal pulmonary medicine as an outpatient for follow-up (2) Chronic venous stasis dermatitis of both lower extremities Is this a current diagnosis for this admission?: YesSummary: Has improved somewhat during hospitalization (3) Morbid obesity Is this a current diagnosis for this admission?: Yes (4) Pickwickian syndrome Is this a current diagnosis for this admission?: Yes (5) ANNA (obstructive sleep apnea) Is this a current diagnosis for this admission?: Yes (6) Vaginal bleeding Is this a current diagnosis for this admission?: YesSummary: Patient had some vaginal bleeding A pelvic ultrasound showed thickened endometrium Patient is discharged on Provera; she will follow-up within a week time at Dr. Kellogg's office [employer] - Additional Information Resuscitation Status: Full Code Home Medications: Budesonide [Pulmicort 180 mcg Flexhaler] 1 puff IH DAILY PRN #1 aer.pow.ba 10/01 Furosemide [Lasix] 20 mg PO DAILY #30 tablet 10/01/16 Ipratropium/Albuterol Sulfate [Combivent Respimat Inhal [place]] 4 gm IH QID #1 aer.w.adap 10/01/16 Losartan Potassium [Cozaar 50 mg Tablet] 50 mg PO DAILY #30 tablet 10/01/16 Medroxyprogesterone Acet [Provera 10 mg Tablet] 20 mg PO DAILY #30 tablet Metoprolol Succinate [Toprol Xl 25 mg Tab.sr] 25 mg PO DAILY #30 tab.sr.24h Prednisone 20 mg PO ASDIR #30 tablet 10/01/16 Additional Information: Prednisone tablets 20 mg : 40 mg po daily for 4 days , 20 mg daily for 4 days 10 mg daily for 4 days History of Present Illness Admission Date/PCP: 09/23/16 12:14 Patient complains of: Increasing shortness of breath History of Present Illness: MANNY GLOVER is a 71 year old female patient of Dr. Croft in [place] who presents to the emergency department with a one-week history of progressive weakness, daytime sleepiness, nighttime restlessness and insomnia, intermittent confusion and forgetfulness. She denies fevers, chills, chest pain, palpitations, orthopnea, PND, abdominal pain, nausea, vomiting, diarrhea or constipation. She reports her PCP recently made a change from chronic Ramipril use to losartan because she was convinced it was making her sleepy. She states she would randomly fall asleep during the course of the day and was taking naps for the first time in her life over the course of the last month. Evaluation in the emergency department shows a chronically ill-appearing, small in stature and morbidly obese female with worsening chronic venous stasis and a venous blood gas that shows a pH of 7.28 and a PCO2 of 82 and a renal panel with a bicarbonate of 35. She was placed empirically on BiPAP therapy and we were asked to admit for further evaluation. She reports no prior cardiac history including no congestive heart failure, coronary artery disease or prior cardiac evaluation. Likewise she has never undergone sleep study or been diagnosed with restrictive sleep apnea. She denies episodic waking during the night, snoring, dyspnea with exertion, chronic headaches, myoclonic jerks. She does not take chronic NSAIDs other than the sulindac once or twice a week for chronic low back pain. She is a lifetime nonsmoker. There is a strong family history of thromboembolic disease , her mother in particular suffers from "blood clots". This history was reviewed and confirmed. Patient denied any previous cardiac history except for heart murmur. She has however noted occasional pedal edema. Hospital Course Hospital Course: See above Physical Exam Vital Signs: Temp Pulse Resp BP Pulse Ox 97.8 F 71 18 138/68 H 95 10/01/16 07:40 10/01/16 08:00 10/01/16 08:00 10/01/16 07:40 10/01/16 08:00 Pulse Oximeter Continuous Start: 09/24/16 20: 12 Freq: RTQ4 Status: Complete Document 09/29/16 16:43 LBR (Rec: 09/29/16 16:43 LBR [email or web address]) Pulse Oximetry Assessment Oxygen Saturation (92-100) 95 Oxygen Flow Rate (L/min) 3 Oxygen Delivery Method Nasal Cannula Fraction of Inspired Oxygen (FIO2) 32 Equipment Usage Equipment Discontinued Continuous SpO2 Machine # 2 Intake & Output 09/30/16 10/01/16 10/02/16 00:59 00:59 00:59 Intake Total 1478 1305 5 Output Total 700 1000 600 Balance 778 305 -595 Weight 102.1 kg 101.5 kg 100.3 kg Results Laboratory Results: 10/01/16 04:50 10/01/16 04:50 10/01/16 10/01/16 04:50 04:50 WBC 11.7 H RBC 5.61 H Hgb 16.3 H Hct 49.5 H MCV 88 MCH 29.0 MCHC 32.9 RDW 14.2 H Plt Count 177 Seg Neutrophils % 79.5 H Lymphocytes % 12.1 L Monocytes % 7.9 Eosinophils % 0.1 Basophils % 0.4 Absolute Neutrophils 9.3 H Absolute Lymphocytes 1.4 Absolute Monocytes 0.9 Absolute Eosinophils 0.0 Absolute Basophils 0.0 Sodium 138.8 Potassium 3.5 L Chloride 92 L Carbon Dioxide 40 H* Anion Gap 7 BUN 54 H Creatinine 0.82 Est GFR ( Amer) > 60 Est GFR (Non-Af Amer) > 60 Glucose 114 H Calcium 8.5 09/23/16 14:50 Troponin I < 0.012 NT-Pro-B Natriuret Pep 261 Impressions: Chest/Abdomen CTA 09/23/16 11:34 IMPRESSION: 1. No PE. 2. Atelectasis. Chronic interstitial lung disease. 3. Small nodule right lower lobe will need followup. Chest X-Ray 09/28/16 00:00 IMPRESSION: Bandlike right middle lobe consolidation atelectasis versus pneumonia. This is similar compared to CT chest 09/23/2016 Pelvis Ultrasound 09/28/16 00:00 IMPRESSION: THICKENED ENDOMETRIAL STRIPE FOR POSTMENOPAUSAL WOMAN MEASURING 11 MM. RECOMMEND GYNECOLOGIC CONSULTATION FOR ENDOMETRIAL SAMPLING. ENLARGED UTERUS WITHOUT DISCRETE MASS. OVARIES NOT VISUALIZED. IF NECESSARY, TRANSVAGINAL IMAGING CAN BE PERFORMED. Transfer Plan - Disposition Transfer Plan: transfer to [facility] Patient needs O2 nasal cannula continuous at night she may use bipap if needed 25%O2 27/01 - Time Spent with Patient Time spent with patient: Greater than 30 Minutes
[2016-10-01 15:19] VITALS: BP 112/84
== END 2016-10-01 15:19 | DRG 205 ==
LOC: ER 06:24 → EH 12:14 → UNDOADMIN 13:12 → EH 13:12 → 3W 16:16 → EH 16:16
PROVIDERS: ADMIT Internal Medicine; ATTEND Internal Medicine
DX: E66.2 Morbid (severe) obesity with alveolar hypoventilation (principal); J96.22 Acute and chronic respiratory failure with hypercapnia; J96.21 Acute and chronic respiratory failure with hypoxia; J44.1 Chronic obstructive pulmonary disease with (acute) exacerbation; E87.2 Acidosis; Z68.41 Body mass index [BMI] 40.0-44.9, adult; I10 Essential (primary) hypertension; I87.2 Venous insufficiency (chronic) (peripheral); L60.2 Onychogryphosis; B35.1 Tinea unguium; M79.672 Pain in left foot; M79.671 Pain in right foot; N93.9 Abnormal uterine and vaginal bleeding, unspecified
CPT/HCPCS: 36415; 36600; 71010; 71020; 71275; 76856; 80048; 80053; 80061; 80307; 81001; 82550; 82553; 82607; 82803; 83036; 83605; 83735; 83880; 84100; 84443; 84484; 85025; 85610; 93005; 93010; 93306; 94660; 94762; 94799; 99291; G8978-GP; G8979-GP; J1650; J1940; J1956; J2405; J2920; J2930; J3490; J7030; J7512; J7614; J7620; S0028

== ENCOUNTER 2016-11-30 05:10 | Emergency (ER) | payer MEDICARE ==
[2016-11-30 06:47] LABS: APPEARANCE,URINE CLOUDY; BILIRUBIN,URINE NEGATIVE (NEGATIVE); GLUCOSE, URINE NEGATIVE (NEGATIVE); KETONES,URINE NEGATIVE (NEGATIVE); LEUKOCYTE ESTERASE,URINE NEGATIVE (NEGATIVE); NITRITE,URINE NEGATIVE (NEGATIVE); PROTEIN,URINE 100 mg/dL (NEGATIVE); UROBILINOGEN,URINE NEGATIVE mg/dL (<2.0)
--- NOTE | 2016-11-30 06:51 | ER Document Report ---
ED General - General Chief Complaint: Rash Stated Complaint: RASH Mode of Arrival: Ambulatory Information source: Patient Notes: 71-year-old female presents with complaints of rash in the groin to the rectum. Patient notes symptoms have been ongoing for a week are itchy and burning sensation. Patient notes that she has had infections in her legs, which are improving significantly she states. Patient denies any fevers or chills TRAVEL OUTSIDE OF THE [place] IN LAST 30 DAYS: No - HPI Onset: Last week Onset/Duration: Persistent Quality of pain: Burning, Other - Itching Severity: Mild Pain Level: 1 Associated symptoms: Other Exacerbated by: Denies Relieved by: Denies Similar symptoms previously: No Recently seen / treated by doctor: No - Related Data Allergies/Adverse Reactions: nut - unspecified Allergy (Verified 09/23/16 06:45) chocolate Allergy (Uncoded 09/23/16 06:44) wasp Allergy (Uncoded 09/23/16 06:45) Past Medical History - Social History Smoking Status: Never Smoker Cigarette use (# per day): No Chew tobacco use (# tins/day): No Smoking Education Provided: No Frequency of alcohol use: None Drug Abuse: None Family History: Reviewed & Not Pertinent Patient has suicidal ideation: No Patient has homicidal ideation: No - Past Medical History Cardiac Medical History: Reports: Hx Hypertension, Hx Peripheral Vascular Disease, Hx Heart Murmur Pulmonary Medical History: Reports: Hx COPD Neurological Medical History: Denies: Hx Migraine Renal/ Medical History: Denies: Hx Peritoneal Dialysis Past Surgical History: Reports: Hx Orthopedic Surgery - left tib/fib Review of Systems - Review of Systems Notes: REVIEW OF SYSTEMS: CONSTITUTIONAL : Denies fever, chills, or sweats. Denies recent illness. EENT: Denies eye, ear, throat, or mouth pain or symptoms. Denies nasal or sinus congestion or discharge. Denies throat, tongue, or mouth swelling or difficulty swallowing. CARDIOVASCULAR: Denies chest pain. Denies palpitations or racing or irregular heart beat. Denies ankle edema. RESPIRATORY: Denies cough, cold, or chest congestion. Denies shortness of breath, difficulty breathing, or wheezing. GASTROINTESTINAL: Denies abdominal pain or distention. Denies nausea, vomiting , or diarrhea. Denies blood in vomitus, stools, or per rectum. Denies black, tarry stools. Denies constipation. GENITOURINARY: Denies difficulty urinating, painful urination, burning, frequency, blood in urine, or discharge. FEMALE GENITOURINARY: Denies vaginal bleeding, heavy or abnormal periods, irregular periods. Denies vaginal discharge or odor. MUSCULOSKELETAL: Denies back or neck pain or stiffness. Denies joint pain or swelling. SKIN: Admits to rash HEMATOLOGIC : Denies easy bruising or bleeding. LYMPHATIC: Denies swollen, enlarged glands. NEUROLOGICAL: Denies confusion or altered mental status. Denies passing out or loss of consciousness. Denies dizziness or lightheadedness. Denies headache. Denies weakness or paralysis or loss of use of either side. Denies problems with gait or speech. Denies sensory loss, numbness, or tingling. Denies seizures. PSYCHIATRIC: Denies anxiety or stress. Denies depression, suicidal ideation, or homicidal ideation. ALL OTHER SYSTEMS REVIEWED AND NEGATIVE. Dictation was performed using [employer] voice recognition software PHYSICAL EXAMINATION: GENERAL: Well-appearing, well-nourished and in no acute distress. HEAD: Atraumatic, normocephalic. EYES: Pupils equal round and reactive to light, extraocular movements intact, conjunctiva are normal. ENT: Nares patent, oropharynx clear without exudates. Moist mucous membranes. NECK: Normal range of motion, supple without lymphadenopathy LUNGS: Breath sounds clear to auscultation bilaterally and equal. No wheezes rales or rhonchi. HEART: Regular rate and rhythm without murmurs ABDOMEN: Soft, nontender, nondistended abdomen. No guarding, no rebound. No masses appreciated. Female : deferred Musculoskeletal: Normal range of motion, no pitting or edema. No cyanosis. NEUROLOGICAL: Cranial nerves grossly intact. Normal speech, normal gait. Normal sensory, motor exams PSYCH: Normal mood, normal affect. SKIN: Left anterior lobato dressing noted there is pinkish erythema with edema bilateral lower extremities up to the mid thighs, there is a candidal rash in the groin and vaginal area and under the pannus Physical Exam - Vital signs Vitals: Temp Pulse Resp BP Pulse Ox 98.1 F 99 16 152/81 H 100 11/30/16 05:37 11/30/16 05:37 11/30/16 05:37 11/30/16 05:37 11/30/16 05:37 Course - Re-evaluation Re-evalutation: 11/30/16 06:51 Patient has obvious yeast infection, she will be started on medications for this however I am more concerned about the cellulitic component of her shins, patient notes these are actually much better than they have been and she is not concerned. Patient nonetheless will be started on antibiotics as I have concerns that she may become cellulitic in the groin as well from scratching herself Urinalysis was noted to be quite dark and is pending at this time 11/30/16 07:00 Urinalysis is consistent with urinary tract infection. Patient otherwise given that she is afebrile and states that her other symptoms are in fact improving and she is not concerned about them and that she has caregivers at home I believe she is stable for discharge. very strict return precautions have been provided to the patient Patient is on home oxygen After performing a Medical Screening Examination, I estimate there is LOW risk for OPEN FRACTURE, COMPARTMENT SYNDROME, TENDON RUPTURE, ACUTE NEUROVASCULAR INJURY, or RETAINED FOREIGN BODY, thus I consider the discharge disposition reasonable. Also, there is no evidence or peritonitis, sepsis, or toxicity. I have reevaluated this patient multiple times and no significant life threatening changes are noted. The patient and I have discussed the diagnosis and risks, and we agree with discharging home with close follow-up with the understanding that symptoms and presentations can change. We also discussed returning to the Emergency Department immediately if new or worsening symptoms occur. We have discussed the symptoms which are most concerning (e.g., changing or worsening pain, fever, numbness, weakness, cool or painful digits) that necessitate immediate return. 11/30/16 07:03 - Vital Signs Vital signs: Temp Pulse Resp BP Pulse Ox 98.1 F 99 16 152/81 H 100 11/30/16 05:37 11/30/16 05:37 11/30/16 05:37 11/30/16 05:37 11/30/16 05:37 - Laboratory Laboratory results interpreted by me: 11/30/16 06:20 Urine Protein 100 H Urine Blood LARGE H Discharge - Discharge Clinical Impression: Chronic venous stasis dermatitis of both lower extremities, Yeast infection involving the vagina and surrounding area UTI (urinary tract infection) Qualifiers: Urinary tract infection type: acute cystitis Hematuria presence: with hematuria Qualified Code(s): N30.01 - Acute cystitis with hematuria Condition: Stable Disposition: HOME, SELF-CARE Instructions: Urinary Tract Infection ([facility]), Vaginal Yeast Infection ([facility]) Prescriptions: Cephalexin Monohydrate [Keflex 500 mg Capsule] 500 mg PO QID #40 capsule Fluconazole [Diflucan] 150 mg PO ONCE PRN #1 tablet PRN Reason: Nystatin 30 gm TP BID 14 Days Sulfamethoxazole/Trimethoprim [Bactrim Ds Tablet] 2 each PO BID #40 tablet Referrals: JAMES ESCOBAR MD [Primary Care Provider] - Follow up tomorrow
[2016-11-30] MEDS ORDERED: FLUCONAZOLE 100 MG TABLET PO ONE (07:05)
[2016-11-30] MEDS ORDERED: SULFAMETHOXAZOLE/TRIMETHOPRIM 800-160 MG TABLET PO ONE (10:30)
[2016-11-30] MEDS ORDERED: CEPHALEXIN 500 MG CAPSULE PO ONE (10:30)
[2016-11-30 13:01] VITALS: BP 152/80
== END 2016-11-30 13:00 | disposition home or self-care (01) ==
LOC: ER 05:10
DX: I87.2 Venous insufficiency (chronic) (peripheral) (principal); N30.01 Acute cystitis with hematuria; B37.3 Candidiasis of vulva and vagina; I10 Essential (primary) hypertension; J44.9 Chronic obstructive pulmonary disease, unspecified; Z91.038 Other insect allergy status; Z91.018 Allergy to other foods
CPT/HCPCS: 99284; 81001; A9270 ×3

== ENCOUNTER 2016-12-02 06:45 | Inpatient (IN) | payer MEDICARE ==
--- NOTE | 2016-12-02 07:17 | ER Document Report ---
ED GI/ - General Chief Complaint: Abdominal Pain Stated Complaint: VAGINAL BLEEDING Time seen by provider: 07:12 Mode of Arrival: Ambulatory Information source: Patient Notes: 71-year-old female presents to ED for vaginal bleeding 2-3 days. She states that she had incidental same thing in September was brought into the emergency room she was at [facility] at the time and they were exposed to some tests they did the test but she never felt results. She states that her couple days ago Perez Puentes called her dentist she had an appointment on [facility] not [facility] her. TRAVEL OUTSIDE OF THE [place] IN LAST 30 DAYS: No - HPI Patient complains to provider of: Vaginal bleeding, Other - Short of breath, weakness Onset: Other - 2-3 days Quality of pain: No pain Pain Level: Denies Vaginal bleeding (Compared to normal period): Dark brown - Dark red Associated symptoms: Dizzy, Shortness of breath, Other - Vaginal bleeding, weakness Exacerbated by: Denies Relieved by: Denies Similar symptoms previously: Yes Recently seen / treated by doctor: No - Related Data Allergies/Adverse Reactions: nut - unspecified Allergy (Verified 12/02/16 06:52) chocolate Allergy (Uncoded 12/02/16 06:52) wasp Allergy (Uncoded 12/02/16 06:52) Home Medications: Current Home Medications Diazepam [Valium 2 mg Tablet] 2 mg PO DAILYP PRN 12/02/16 [History] Losartan Potassium [Cozaar 25 mg Tablet] 25 mg PO QAM 12/02/16 [History] Ramipril [Altace 10 mg Capsule] 10 mg PO QAM 12/02/16 [History] Past Medical History - General Information source: Patient - Social History Smoking Status: Never Smoker Cigarette use (# per day): No Chew tobacco use (# tins/day): No Smoking Education Provided: No Frequency of alcohol use: Social Drug Abuse: None Lives with: Family Family History: Arthritis, CAD, CVA, Hyperlipidemia, Hypertension - Past Medical History Cardiac Medical History: Reports: Hx Hypertension, Hx Peripheral Vascular Disease, Hx Heart Murmur Pulmonary Medical History: Reports: Hx COPD EENT Medical History: Reports: None Neurological Medical History: Reports: None Endocrine Medical History: Reports: None Renal/ Medical History: Reports: None Malignancy Medical History: Reports: None GI Medical History: Reports: None Musculoskeltal Medical History: Reports Hx Arthritis, Reports Hx Musculoskeletal Deformity, Reports Hx Musculoskeletal Trauma Skin Medical History: Reports Hx Cellulitis Psychiatric Medical History: Reports: None Traumatic Medical History: Reports: Hx Fractures - Differential Infectious Medical History: Reports: None Past Surgical History: Reports: Hx Orthopedic Surgery - left tib/fib skin graft to same area - Immunizations Hx Diphtheria, Pertussis, Tetanus Vaccination: Yes Review of Systems - Review of Systems Constitutional: No symptoms reported EENT: No symptoms reported Cardiovascular: No symptoms reported Respiratory: Short of breath, Wheezing Gastrointestinal: No symptoms reported Genitourinary: No symptoms reported Female Genitourinary: Vaginal bleeding Musculoskeletal: No symptoms reported Skin: No symptoms reported Hematologic/Lymphatic: No symptoms reported Neurological/Psychological: Weakness -: Yes All other systems reviewed and negative Physical Exam - Vital signs Vitals: Resp 18 12/02/16 06:55 Interpretation: Normal - General General appearance: Appears well, Alert - HEENT Head: Normocephalic, Atraumatic Eyes: Normal Pupils: PERRL - Respiratory Respiratory status: No respiratory distress Chest status: Nontender Breath sounds: Normal Chest palpation: Normal - Cardiovascular Rhythm: Regular Heart sounds: Normal auscultation Murmur: No - Abdominal Inspection: Normal Distension: No distension Bowel sounds: Normal Tenderness: Nontender Organomegaly: No organomegaly - Genitourinary Vaginal bleeding: Moderate - Back Back: Normal, Nontender - Extremities General upper extremity: Normal inspection, Nontender, Normal color, Normal ROM , Normal temperature General lower extremity: No: Shania's sign Calf: Tender, Unable to bear weight, Other - Weeping blisters very weak Ankle: Tender, Edema, Limited ROM, Unable to bear weight Foot: Edema, No evidence of FB, Unable to bear weight - Neurological Neuro grossly intact: Yes Cognition: Normal Orientation: AAOx4 [place] Coma Scale Eye Opening: Spontaneous [place] Coma Scale Verbal: Oriented [place] Coma Scale Motor: Obeys Commands [place] Coma Scale Total: 15 Speech: Normal Motor strength normal: LUE, RUE, LLE, RLE Sensory: Normal - Psychological Associated symptoms: Normal affect, Normal mood - Skin Skin Temperature: Warm Skin Moisture: Dry Skin Color: Normal Course - Re-evaluation Re-evalutation: 12/02/16 11:[address] Coppola who came and examined the patient. Patient will be started on Provera 40 mg daily and [facility]. urbano states she is working on getting patient transported to go to [facility] for a possible biopsy. Patient was also given albuterol and DuoNeb and prednisone for her COPD - Vital Signs Vital signs: Temp Pulse Resp BP Pulse Ox 97.8 F 106 H 22 H 144/94 H 100 12/02/16 18:18 12/02/16 18:18 12/02/16 18:18 12/02/16 18:18 12/02/16 18:18 - Laboratory Result Diagrams: 12/02/16 08:34 12/02/16 08:34 Laboratory results interpreted by me: 12/02/16 12/02/16 12/02/16 08:24 08:34 08:34 WBC 12.3 H RDW 15.7 H Seg Neutrophils % 85.1 H Lymphocytes % 7.2 L Absolute Neutrophils 10.5 H AST 41 H Albumin 3.3 L Urine Blood SMALL H Urine Ascorbic Acid 40 H - Diagnostic Test Radiology reviewed: Image reviewed, Reports reviewed Discharge - Discharge Clinical Impression: Bilateral lower leg cellulitis, 71 yo vaginal bleeding Clinical Impression: (Ruled Out): Yeast infection involving the vagina and surrounding area Admitting Provider: Hospitalist - hotaling Unit Admitted: Telemetry
[2016-12-02 08:45] LABS: APPEARANCE,URINE CLEAR; BILIRUBIN,URINE NEGATIVE (NEGATIVE); CALCIUM OXALATE CRYSTALS,URINE RARE /HPF; GLUCOSE, URINE NEGATIVE (NEGATIVE); KETONES,URINE NEGATIVE (NEGATIVE); LEUKOCYTE ESTERASE,URINE NEGATIVE (NEGATIVE); NITRITE,URINE NEGATIVE (NEGATIVE); PROTEIN,URINE NEGATIVE (NEGATIVE); URINE SPECIFIC GRAVITY 1.024; UROBILINOGEN,URINE NEGATIVE mg/dL (<2.0)
[2016-12-02 08:50] LABS: ABSOLUTE BASOPHILS # (AUTO) 0.1 10^3/uL (0.0-0.2); ABSOLUTE EOSINOPHILS # (AUTO) 0.1 10^3/uL (0.0-0.6); ABSOLUTE LYMPHOCYTES (AUTO) 0.9 10^3/uL (0.5-4.7); ABSOLUTE MONOCYTES (AUTO) 0.7 10^3/uL (0.1-1.4); ABSOLUTE NEUT (AUTO) 10.5 10^3/uL (1.7-8.2); BASOPHILS % (AUTO) 0.7 % (0-2); HEMATOCRIT 36.5 % (36.0-47.0); HGB HCT DIFFERENCE -0.5; LYMPHOCYTES % (AUTO) 7.2 % (13-45); MEAN CORPUSCULAR HEMOGLOBIN 29.2 pg (27.0-33.4); MEAN CORPUSCULAR VOLUME 89 fl (80-97); RED BLOOD COUNT 4.12 10^6/uL (3.72-5.28); RED CELL DISTRIBUTION WIDTH 15.7 % (11.5-14.0); SEGMENTED NEUTROPHILS % (AUTO) 85.1 % (42-78); WHITE BLOOD COUNT 12.3 10^3/uL (4.0-10.5)
[2016-12-02 09:21] LABS: ALANINE AMINOTRANSFERASE 30 U/L (9-52); ALBUMIN 3.3 g/dL (3.5-5.0); ALKALINE PHOSPHATASE 77 U/L (38-126); ANION GAP 10 (5-19); ASPARTATE AMINO TRANSFERASE 41 U/L (14-36); BILIRUBIN,DIRECT 0.3 mg/dL (0.0-0.4); BILIRUBIN,TOTAL 0.6 mg/dL (0.2-1.3); BLOOD UREA NITROGEN 19 mg/dL (7-20); CALCIUM 9.1 mg/dL (8.4-10.2); CARBON DIOXIDE 29 mmol/L (22-30); CHLORIDE 101 mmol/L (98-107); CREATININE RESULT 0.81 mg/dL (0.52-1.25); GLUCOSE 95 mg/dL (75-110); POTASSIUM 4.9 mmol/L (3.6-5.0); SODIUM 140.1 mmol/L (137-145); TOTAL PROTEIN 7.1 g/dL (6.3-8.2)
[2016-12-02] MEDS ORDERED: MEDROXYPROGESTERONE ACET 10 MG TABLET PO ONE (09:51)
[2016-12-02] MEDS ORDERED: IPRATROPIUM/ALBUTEROL 0.5-2.5 MG/3 ML AMPUL NEB ONE (10:00)
[2016-12-02] MEDS ORDERED: DEXAMETHASONE SOD PHOS INJ 10 MG/1 ML VIAL IM ONE (10:02)
[2016-12-02] MEDS: NYSTATIN TOPICAL POWDER 15 GM TP SCH ×2 (10:08→17:58)
[2016-12-02] MEDS: ALBUTEROL SULFATE 0.083% NEB 2.5 MG/3 ML AMPUL NEB SCH ×2 (10:11→10:42)
[2016-12-02] MEDS ORDERED: ACETAMINOPHEN 325 MG TABLET PO PRN (12:22)
[2016-12-02] MEDS ORDERED: ONDANSETRON HCL INJ/PF 4 MG/2 ML SDV IV PRN (12:22)
[2016-12-02] MEDS ORDERED: IPRATROPIUM/ALBUTEROL 0.5-2.5 MG/3 ML AMPUL NEB PRN (12:22)
[2016-12-02] MEDS ORDERED: VANCOMYCIN HCL 0 MG in DEXTROSE 5%-WATER 250 ML IV NR (12:45)
--- NOTE | 2016-12-02 17:17 | PDOC H&P ---
History of Present Illness Admission Date/PCP: 12/02/16 12:22 Patient complains of: Weakness and lower extremity leg pain, redness and swelling History of Present Illness: MANNY GLOVER is a 71 year old female patient of Dr. Croft in [place], who [facility] this morning with complaints of progressive weakness and bilateral leg redness and swelling. She states he has chronic venous insufficiency and has problems with chronic edema in her lower extremities. She has noted increased redness over the both anterior surfaces of her lower legs. She has some purulent drainage from the left lower extremity wounds. She denies any fever or chills, she denies any rigors. She states she was discharged 2 weeks ago from [facility] after a three-week stay. She states presently she lives alone. She does have home health that comes in to times weekly. She states over the last 2 days she has had difficulty ambulating because of the intense pain in both of her lower extremities and swelling. She also has history of COPD on home oxygen therapy continuously at 2 L/m, essential hypertension, morbid obesity, chronic venous insufficiency bilaterally Past Medical History Cardiac Medical History: Reports: Hypertension, Peripheral Vascular Disease, Heart Murmur Pulmonary Medical History: Reports: Chronic Obstructive Pulmonary Disease (COPD) EENT Medical History: Reports: None Neurological Medical History: Reports: None Denies: Migraine Endocrine Medical History: Reports: None Renal/ Medical History: Reports: None Malignancy Medical History: Reports: None GI Medical History: Reports: None Musculoskeltal Medical History: Reports: Arthritis Psychiatric Medical History: Reports: None Infectious Medical History: Reports: None Past Surgical History Past Surgical History: Reports: Orthopedic Surgery - left tib/fib skin graft to same area Social History Information Source: Patient Lives with: Alone Smoking Status: Never Smoker Frequency of Alcohol Use: Occasional Hx Recreational Drug Use: No Hx Prescription Drug Abuse: No - Advance Directive Resuscitation Status: Do Not Resuscitate Family History Family History: Arthritis, CAD, CVA, Hyperlipidemia, Hypertension Parental Family History Reviewed: Yes Children Family History Reviewed: Yes Sibling(s) Family History Reviewed.: Yes Medication/Allergy Home Medications: Diazepam [Valium 2 mg Tablet] 2 mg PO DAILYP PRN 12/02/16 Losartan Potassium [Cozaar 25 mg Tablet] 25 mg PO QAM 12/02/16 Ramipril [Altace 10 mg Capsule] 10 mg PO QAM 12/02/16 Allergies/Adverse Reactions: nut - unspecified Allergy (Verified 12/02/16 06:52) chocolate Allergy (Uncoded 12/02/16 06:52) wasp Allergy (Uncoded 12/02/16 06:52) Review of Systems Constitutional: PRESENT: fatigue, night sweats, weakness. ABSENT: chills, fever (s), headache(s), weight gain, weight loss Eyes: ABSENT: visual disturbances Ears: ABSENT: hearing changes Cardiovascular: ABSENT: chest pain, dyspnea on exertion, edema, orthropnea, palpitations Respiratory: ABSENT: cough, hemoptysis Gastrointestinal: ABSENT: abdominal pain, constipation, diarrhea, hematemesis, hematochezia, nausea, vomiting Genitourinary: ABSENT: dysuria, hematuria Musculoskeletal: ABSENT: joint swelling Integumentary: PRESENT: erythema, wounds, other - +3 lower extremity edema of lower extremities, erythema bilateral lower anterior extremities. ABSENT: rash Neurological: PRESENT: paresthesias, weakness Psychiatric: ABSENT: anxiety, depression, homidical ideation, suicidal ideation Endocrine: PRESENT: as per HPI Hematologic/Lymphatic: ABSENT: easy bleeding, easy bruising Physical Exam Vital Signs: Temp Pulse Resp BP Pulse Ox 98 F 22 H 138/80 H 95 12/02/16 15:00 12/02/16 15:01 12/02/16 14:01 12/02/16 15:01 General appearance: PRESENT: no acute distress, cooperative, morbidly obese, well-developed, well-nourished Head exam: PRESENT: atraumatic, normocephalic Eye exam: PRESENT: conjunctiva pink, EOMI, PERRLA. ABSENT: scleral icterus Ear exam: PRESENT: normal external ear exam Mouth exam: PRESENT: dry mucosa Teeth exam: PRESENT: poor dentation Neck exam: ABSENT: carotid bruit, JVD, lymphadenopathy, thyromegaly Respiratory exam: PRESENT: clear to auscultation michelle. ABSENT: rales, rhonchi, wheezes Cardiovascular exam: PRESENT: RRR. ABSENT: diastolic murmur, rubs, systolic murmur Pulses: PRESENT: normal dorsalis pedis pul Vascular exam: PRESENT: normal capillary refill GI/Abdominal exam: PRESENT: normal bowel sounds, soft. ABSENT: distended, guarding, mass, organolmegaly, rebound, tenderness Rectal exam: PRESENT: deferred Extremities exam: PRESENT: full ROM. ABSENT: calf tenderness, clubbing, pedal edema Musculoskeletal exam: PRESENT: ambulatory, full ROM, tenderness, other - bilateral lower extremities Neurological exam: PRESENT: alert, awake, oriented to person, oriented to place , oriented to time, oriented to situation, CN II-XII grossly intact. ABSENT: motor sensory deficit Psychiatric exam: PRESENT: appropriate affect, normal mood. ABSENT: homicidal ideation, suicidal ideation Skin exam: PRESENT: dry, intact, warm. ABSENT: cyanosis, rash Results Impressions: Transvaginal US 12/02/16 08:27 IMPRESSION: Enlarged uterus with thickened endometrium. No significant change from 09/28/2016. Chest X-Ray 12/02/16 10:00 IMPRESSION: NO ACUTE RADIOGRAPHIC FINDING IN THE CHEST. Assessment & Plan - Diagnosis (1) Bilateral lower leg cellulitis Is this a current diagnosis for this admission?: YesPlan: Blood cultures 2 obtained. Patient was started on Zosyn and vancomycin IV. She will need to keep lower extremities elevated. (2) Generalized weakness Is this a current diagnosis for this admission?: YesPlan: Physical therapy consult. Patient may need rehabilitation placement. (3) Vaginal bleeding Is this a current diagnosis for this admission?: YesPlan: Patient seen by [facility] Dr. Weiner, She was started on Provera, transvaginal ultrasound, possible endometrial biopsy (4) Yeast infection involving the vagina and surrounding area Is this a current diagnosis for this admission?: YesPlan: Diflucan (5) Chronic venous stasis dermatitis of both lower extremities Is this a current diagnosis for this admission?: YesPlan: Patient is keep legs elevated, SCDs and increasing activity. (6) Morbid obesity with BMI of 40.0-44.9, adult Is this a current diagnosis for this admission?: YesPlan: Patient's counseled on need for weight reduction and increasing activity. (7) Essential hypertension Is this a current diagnosis for this admission?: YesPlan: Continue antihypertensives - Time Time Spent: 50 to 70 Minutes Critical Time spent with patient: 25-34 minutes Medications reviewed and adjusted accordingly: Yes Anticipated discharge: Acute Rehab - Inpatient Certification Based on my medical assessment, after consideration of the patient's comorbidities, presenting symptoms, or acuity I expect that the services needed warrant INPATIENT care.: Yes I certify that my determination is in accordance with my understanding of Medicare's requirements for reasonable and necessary INPATIENT services [42 CFR 412.3e].: Yes Medical Necessity: Significant Comorbidiites Make Outpatient Treatment Too Risky , Need for IV Antibiotics, Risk of Complication if Not Cared For in Hospital
[2016-12-02] MEDS: FLUCONAZOLE 100 MG TABLET PO SCH (17:53)
[2016-12-02] MEDS: DOCUSATE SODIUM 100 MG CAPSULE PO SCH (17:53)
[2016-12-02] MEDS: LACTOBACILLUS ACIDOPHILUS 250 MG TAB PO SCH (17:54)
[2016-12-02] MEDS: PIPERACILLIN SODIUM/TAZOBACTAM 3.375 GM in NORMAL SALINE 100 ML IV SCH ×2 (17:54→23:47)
[2016-12-02] MEDS: LANSOPRAZOLE 30 MG TAB.RAP.DR PO SCH (17:58)
[2016-12-02] MEDS: VANCOMYCIN HCL 1,000 MG in DEXTROSE 5%-WATER 250 ML IV SCH (19:25)
[2016-12-03] MEDS: VANCOMYCIN HCL 1,000 MG in DEXTROSE 5%-WATER 250 ML IV SCH ×2 (03:47→18:00)
[2016-12-03 05:02] LABS: ANION GAP 8 (5-19); BLOOD UREA NITROGEN 25 mg/dL (7-20); CALCIUM 8.9 mg/dL (8.4-10.2); CARBON DIOXIDE 29 mmol/L (22-30); CHLORIDE 101 mmol/L (98-107); CREATININE RESULT 0.82 mg/dL (0.52-1.25); GLUCOSE 127 mg/dL (75-110); MAGNESIUM 2.5 mg/dL (1.6-2.3); POTASSIUM 5.8 mmol/L (3.6-5.0); SODIUM 138.4 mmol/L (137-145)
[2016-12-03] MEDS: PIPERACILLIN SODIUM/TAZOBACTAM 3.375 GM in NORMAL SALINE 100 ML IV SCH ×4 (05:33→23:46)
[2016-12-03] MEDS: LANSOPRAZOLE 30 MG TAB.RAP.DR PO SCH ×2 (05:34→17:28)
[2016-12-03 06:57] LABS: HEMATOCRIT 36.8 % (36.0-47.0); HEMOGLOBIN 12.2 g/dL (12.0-15.5); HGB HCT DIFFERENCE -0.2; MEAN CORPUSCULAR HEMOGLOBIN 29.5 pg (27.0-33.4); MEAN CORPUSCULAR HGB CONC 33.1 g/dL (32.0-36.0); MEAN CORPUSCULAR VOLUME 89 fl (80-97); RED BLOOD COUNT 4.13 10^6/uL (3.72-5.28); RED CELL DISTRIBUTION WIDTH 15.9 % (11.5-14.0); WHITE BLOOD COUNT 11.2 10^3/uL (4.0-10.5)
[2016-12-03 07:57] LABS: BASOPHILS % (MANUAL) 0 % (0-2); EOSINOPHILS % (MANUAL) 2 % (0-6); LYMPHOCYTES % (MANUAL) 6 % (13-45); TOTAL CELLS COUNTED 100
[2016-12-03 07:58] LABS: ANISOCYTOSIS SLIGHT; TOXIC GRANULATION SLIGHT
[2016-12-03] MEDS ORDERED: DIAZEPAM 2 MG TABLET PO PRN (08:01)
[2016-12-03] MEDS: NYSTATIN TOPICAL POWDER 15 GM TP SCH ×2 (10:00→18:00)
[2016-12-03] MEDS ORDERED: RAMIPRIL 10 MG CAPSULE PO SCH (10:00)
[2016-12-03] MEDS: ENOXAPARIN SODIUM INJ 40 MG/0.4 ML DISP.SYRIN SUBCUT SCH (10:15)
[2016-12-03] MEDS: DOCUSATE SODIUM 100 MG CAPSULE PO SCH ×2 (10:16→17:28)
[2016-12-03] MEDS: LOSARTAN POTASSIUM 25 MG TABLET PO SCH (10:17)
[2016-12-03] MEDS: LACTOBACILLUS ACIDOPHILUS 250 MG TAB PO SCH ×2 (10:19→17:28)
--- NOTE | 2016-12-03 12:17 | PDOC CONSULTATION ---
Consultation Consult Date: 12/03/16 Attending physician:: TOMMY VALDEZ Consult reason:: Postmenopausal bleeding History of Present Illness Admission Date/PCP: 12/02/16 12:22 Mrs. Martinez is a 71-year-old para 0 with postmenopausal bleeding. She had been seen at during a prior stay by Dr. Guzman and had gynecologic ultrasound done that showed some endometrial thickening. At that point she had been unable to tolerate an endometrial biopsy due to her medical condition. She had been sent back to [facility] on Provera. With that her bleeding had decreased her stopped. However she recently went home and had not been taking her Provera. She noted fairly heavy bleeding off the Provera. Dr. Gallardo saw the patient on admission to this hospital stay and advised resumption of Provera. With this the patient reports that the bleeding is now scant. She is currently admitted for venous station cyst changes in her lower extremities. She had been scheduled for consultation with [facility] in [place] however had not been taken to that appointment for further evaluation of her bleeding. Past Medical History Cardiac Medical History: Reports: Hypertension, Peripheral Vascular Disease, Heart Murmur Pulmonary Medical History: Reports: Chronic Obstructive Pulmonary Disease (COPD) EENT Medical History: Reports: None Neurological Medical History: Reports: None Denies: Migraine Endocrine Medical History: Reports: None Renal/ Medical History: Reports: None Malignancy Medical History: Reports: None GI Medical History: Reports: None Musculoskeltal Medical History: Reports: Arthritis Psychiatric Medical History: Reports: None Infectious Medical History: Reports: None Social History Lives with: Family Smoking Status: Never Smoker Frequency of Alcohol Use: None Hx Recreational Drug Use: No Drugs: None Hx Prescription Drug Abuse: No - Advance Directive Resuscitation Status: Do Not Resuscitate Family History Family History: Arthritis, CAD, CVA, Hyperlipidemia, Hypertension Parental Family History Reviewed: No Children Family History Reviewed: NA Sibling(s) Family History Reviewed.: Unknown Medication/Allergy Home Medications: Diazepam [Valium 2 mg Tablet] 2 mg PO DAILYP PRN 12/02/16 Losartan Potassium [Cozaar 25 mg Tablet] 25 mg PO QAM 12/02/16 Ramipril [Altace 10 mg Capsule] 10 mg PO QAM 12/02/16 Allergies/Adverse Reactions: nut - unspecified Allergy (Verified 12/02/16 06:52) chocolate Allergy (Uncoded 12/02/16 06:52) wasp Allergy (Uncoded 12/02/16 06:52) Physical Exam - Physical Exam Vital Signs: Temp Pulse Resp BP Pulse Ox 97.4 F 89 20 155/85 H 99 12/03/16 00:19 12/03/16 11:26 12/03/16 11:26 12/03/16 07:53 12/03/16 11:26 Intake & Output 12/02/16 12/03/16 12/04/16 06:59 06:59 06:59 Intake Total 1040 Balance 1040 Weight 104.326 kg Result Laboratory Results: 12/03/16 06:49 12/03/16 03:45 12/03/16 12/03/16 12/03/16 03:45 03:45 06:49 WBC Cancelled 11.2 H RBC Cancelled 4.13 Hgb Cancelled 12.2 Hct Cancelled 36.8 MCV Cancelled 89 MCH Cancelled 29.5 MCHC Cancelled 33.1 RDW Cancelled 15.9 H Plt Count Cancelled 279 Seg Neutrophils % Cancelled Not Reportable Lymphocytes % Cancelled Not Reportable Monocytes % Cancelled Not Reportable Eosinophils % Cancelled Not Reportable Basophils % Cancelled Not Reportable Absolute Neutrophils Cancelled Not Reportable Absolute Lymphocytes Cancelled Not Reportable Absolute Monocytes Cancelled Not Reportable Absolute Eosinophils Cancelled Not Reportable Absolute Basophils Cancelled Not Reportable Sodium 138.4 Potassium 5.8 H Chloride 101 Carbon Dioxide 29 Anion Gap 8 BUN 25 H Creatinine 0.82 Est GFR ( Amer) > 60 Est GFR (Non-Af Amer) > 60 Glucose 127 H Calcium 8.9 Magnesium 2.5 H Impressions: Transvaginal US 12/02/16 08:27 IMPRESSION: Enlarged uterus with thickened endometrium. No significant change from 09/28/2016. Chest X-Ray 12/02/16 10:00 IMPRESSION: NO ACUTE RADIOGRAPHIC FINDING IN THE CHEST. Assessment & Plan - Diagnosis (1) Vaginal bleeding Is this a current diagnosis for this admission?: Yes (2) Bilateral lower leg cellulitis Is this a current diagnosis for this admission?: Yes - Plan Summary Plan Summary: The patient's postmenopausal bleeding and ultrasound findings are concerning for endometrial hyperplasia, endometrial polyp, or even endometrial cancer. However, her medical condition precludes evaluation in the operating room at this time. She likely would not be able to tolerate an endometrial biopsy in the office. Her body habitus would likely preclude this. However she is currently having a good response to Provera and in patients were not operative candidates this can be used to treat endometrial hyperplasia and even cancer. At this point I would recommend continuing the Provera indefinitely. Should her medical comorbidities improved to the point that she could be evaluated in the operating room under general anesthesia we could proceed with hysteroscopy with dilation and curettage for a tissue diagnosis. At this point I will sign off of the case however please feel free to call should she have an increase in bleeding or you feel that she is able to tolerate operative evaluation. Thank you for this consult
[2016-12-03] MEDS ORDERED: ACETAMINOPHEN 325 MG TABLET PO PRN (13:59)
--- NOTE | 2016-12-03 17:05 | PDOC PROGRESS REPORT ---
Subjective Progress Note for:: 12/03/16 Subjective:: Patient seen on morning rounds. She is resting comfortably in bedside chair. She is keeping her legs elevated. She states she has a fair night. She denies any shortness breath, dyspnea or cough. She denies any chest pain or dizziness. She denies any nausea, abdominal pain, or nausea. She is having mild discomfort in her lower extremities especially the left from cellulitis. She states she is also having continued vaginal bleeding. Rest of the review of systems is negative. Physical Exam Vital Signs: Temp Pulse Resp BP Pulse Ox 98.3 F 91 22 H 120/100 H 100 12/03/16 15:57 12/03/16 15:57 12/03/16 15:57 12/03/16 15:57 12/03/16 15:57 Intake & Output 12/02/16 12/03/16 12/04/16 06:59 06:59 06:59 Intake Total 1040 Balance 1040 Weight 104.326 kg General appearance: PRESENT: no acute distress, morbidly obese, well-developed, well-nourished Head exam: PRESENT: atraumatic, normocephalic Eye exam: PRESENT: conjunctiva pink, EOMI, PERRLA. ABSENT: scleral icterus Ear exam: PRESENT: normal external ear exam Mouth exam: PRESENT: moist, tongue midline Neck exam: ABSENT: carotid bruit, JVD, lymphadenopathy, thyromegaly Respiratory exam: PRESENT: clear to auscultation michelle. ABSENT: rales, rhonchi, wheezes Cardiovascular exam: PRESENT: RRR. ABSENT: diastolic murmur, rubs, systolic murmur Pulses: PRESENT: normal dorsalis pedis pul Vascular exam: PRESENT: normal capillary refill GI/Abdominal exam: PRESENT: normal bowel sounds, soft. ABSENT: distended, guarding, mass, organolmegaly, rebound, tenderness Rectal exam: PRESENT: deferred Extremities exam: PRESENT: calf tenderness, full ROM, tenderness, other - +3 edema lower extremitieschronic venous stasis Musculoskeletal exam: PRESENT: ambulatory, full ROM, other - Extensive cellulitis on the anterior lower extremities bilaterally. Left greater than right Neurological exam: PRESENT: alert, awake, oriented to person, oriented to place , oriented to time, oriented to situation, CN II-XII grossly intact. ABSENT: motor sensory deficit Psychiatric exam: PRESENT: appropriate affect, normal mood. ABSENT: homicidal ideation, suicidal ideation Skin exam: PRESENT: erythema, warm, other - Purulent discharge Results Laboratory Results: 12/03/16 06:49 12/03/16 03:45 12/03/16 12/03/16 12/03/16 03:45 03:45 06:49 WBC Cancelled 11.2 H RBC Cancelled 4.13 Hgb Cancelled 12.2 Hct Cancelled 36.8 MCV Cancelled 89 MCH Cancelled 29.5 MCHC Cancelled 33.1 RDW Cancelled 15.9 H Plt Count Cancelled 279 Seg Neutrophils % Cancelled Not Reportable Lymphocytes % Cancelled Not Reportable Monocytes % Cancelled Not Reportable Eosinophils % Cancelled Not Reportable Basophils % Cancelled Not Reportable Absolute Neutrophils Cancelled Not Reportable Absolute Lymphocytes Cancelled Not Reportable Absolute Monocytes Cancelled Not Reportable Absolute Eosinophils Cancelled Not Reportable Absolute Basophils Cancelled Not Reportable Sodium 138.4 Potassium 5.8 H Chloride 101 Carbon Dioxide 29 Anion Gap 8 BUN 25 H Creatinine 0.82 Est GFR ( Amer) > 60 Est GFR (Non-Af Amer) > 60 Glucose 127 H Calcium 8.9 Magnesium 2.5 H Impressions: Transvaginal US 12/02/16 08:27 IMPRESSION: Enlarged uterus with thickened endometrium. No significant change from 09/28/2016. Chest X-Ray 12/02/16 10:00 IMPRESSION: NO ACUTE RADIOGRAPHIC FINDING IN THE CHEST. Assessment & Plan - Diagnosis (1) Bilateral lower leg cellulitis Is this a current diagnosis for this admission?: YesPlan: Blood cultures 2 obtained. Patient was started on Zosyn and vancomycin IV. She will need to keep lower extremities elevated. (2) Generalized weakness Is this a current diagnosis for this admission?: YesPlan: Physical therapy consult. Patient may need rehabilitation placement. (3) Vaginal bleeding Is this a current diagnosis for this admission?: YesPlan: Patient seen by [facility] Dr Kellogg, She was started on Provera, transvaginal ultrasound. She may need a possible endometrial biopsy some time, her body habitus would preclude from an office procedure. Due to her other medical conditions radiate the present time she is not a candidate for 1 during this hospitalization. (4) Yeast infection involving the vagina and surrounding area Is this a current diagnosis for this admission?: YesPlan: Diflucan (5) Chronic venous stasis dermatitis of both lower extremities Is this a current diagnosis for this admission?: YesPlan: Patient is keep legs elevated, SCDs and increasing activity. (6) Morbid obesity with BMI of 40.0-44.9, adult Is this a current diagnosis for this admission?: YesPlan: Patient's counseled on need for weight reduction and increasing activity. (7) Essential hypertension Is this a current diagnosis for this admission?: YesPlan: Continue antihypertensives - Time Time Spent with patient: 25-34 minutes Critical Time spent with patient: 15-24 minutes Medications reviewed and adjusted accordingly: Yes Anticipated discharge: Acute Rehab
[2016-12-03] MEDS: FLUCONAZOLE 100 MG TABLET PO SCH (17:28)
[2016-12-03] MEDS ORDERED: VANCOMYCIN HCL 1,000 MG in DEXTROSE 5%-WATER 250 ML IV ONE (18:30)
[2016-12-04 04:08] LABS: ABSOLUTE EOSINOPHILS # (AUTO) 0.1 10^3/uL (0.0-0.6); ABSOLUTE LYMPHOCYTES (AUTO) 1.3 10^3/uL (0.5-4.7); ABSOLUTE NEUT (AUTO) 9.3 10^3/uL (1.7-8.2); BASOPHILS % (AUTO) 0.3 % (0-2); EOSINOPHILS % (AUTO) 1.2 % (0-6); HEMATOCRIT 35.6 % (36.0-47.0); HEMOGLOBIN 11.8 g/dL (12.0-15.5); HGB HCT DIFFERENCE -0.2; LYMPHOCYTES % (AUTO) 10.9 % (13-45); MEAN CORPUSCULAR HEMOGLOBIN 29.8 pg (27.0-33.4); MEAN CORPUSCULAR VOLUME 90 fl (80-97); MONOCYTES % (AUTO) 8.7 % (3-13); RED BLOOD COUNT 3.94 10^6/uL (3.72-5.28); RED CELL DISTRIBUTION WIDTH 15.8 % (11.5-14.0); SEGMENTED NEUTROPHILS % (AUTO) 78.9 % (42-78); WHITE BLOOD COUNT 11.8 10^3/uL (4.0-10.5)
[2016-12-04] MEDS: PIPERACILLIN SODIUM/TAZOBACTAM 3.375 GM in NORMAL SALINE 100 ML IV SCH ×3 (05:19→17:14)
[2016-12-04] MEDS: LANSOPRAZOLE 30 MG TAB.RAP.DR PO SCH ×2 (05:19→17:13)
[2016-12-04] MEDS: VANCOMYCIN HCL 1,000 MG in DEXTROSE 5%-WATER 250 ML IV SCH ×2 (05:20→18:45)
[2016-12-04] MEDS: ENOXAPARIN SODIUM INJ 40 MG/0.4 ML DISP.SYRIN SUBCUT SCH (07:43)
[2016-12-04] MEDS: LACTOBACILLUS ACIDOPHILUS 250 MG TAB PO SCH ×2 (09:40→17:13)
[2016-12-04] MEDS: DOCUSATE SODIUM 100 MG CAPSULE PO SCH ×2 (09:40→17:15)
[2016-12-04] MEDS: NYSTATIN TOPICAL POWDER 15 GM TP SCH ×2 (09:41→17:12)
[2016-12-04] MEDS: MEDROXYPROGESTERONE ACET 2.5 MG TABLET PO SCH (09:41)
[2016-12-04] MEDS: MUPIROCIN 2% OINTMENT 22 GM TP SCH ×2 (14:15→17:12)
--- NOTE | 2016-12-04 15:48 | PDOC PROGRESS REPORT ---
Subjective Progress Note for:: 12/04/16 Subjective:: Patient seen on morning rounds. She is resting comfortably in bedside chair. She is keeping her legs elevated. She states she has a fair night. She denies any shortness breath, dyspnea or cough. She denies any chest pain or dizziness. She denies any nausea, abdominal pain, or nausea. She is having mild discomfort in her lower extremities especially the left from cellulitis. Her vaginal bleeding has stopped. Rest of the review of systems is negative. Physical Exam Vital Signs: Temp Pulse Resp BP Pulse Ox 98.0 F 89 24 H 123/53 L 100 12/04/16 11:04 12/04/16 11:04 12/04/16 11:04 12/04/16 11:04 12/04/16 11:04 Intake & Output 12/03/16 12/04/16 12/05/16 06:59 06:59 06:59 Intake Total 1040 1910 Output Total 400 Balance 1040 1510 Weight 104.326 kg General appearance: PRESENT: no acute distress, morbidly obese, well-developed, well-nourished Head exam: PRESENT: atraumatic, normocephalic Eye exam: PRESENT: conjunctiva pink, EOMI, PERRLA. ABSENT: scleral icterus Ear exam: PRESENT: normal external ear exam Mouth exam: PRESENT: moist, tongue midline Teeth exam: PRESENT: edentulous Neck exam: ABSENT: carotid bruit, JVD, lymphadenopathy, thyromegaly Respiratory exam: PRESENT: clear to auscultation michelle, decreased breath sounds. ABSENT: rales, rhonchi, wheezes Cardiovascular exam: PRESENT: RRR. ABSENT: diastolic murmur, rubs, systolic murmur Pulses: PRESENT: normal carotid pulses, normal radial pulses Vascular exam: PRESENT: normal capillary refill GI/Abdominal exam: PRESENT: normal bowel sounds, soft. ABSENT: distended, guarding, mass, organolmegaly, rebound, tenderness Rectal exam: PRESENT: deferred Extremities exam: PRESENT: full ROM, other - +3 edema lower extremities. ABSENT : calf tenderness, clubbing, pedal edema Neurological exam: PRESENT: alert, altered, CN II-XII grossly intact Psychiatric exam: PRESENT: flat affect Skin exam: PRESENT: erythema, warm, other Results Laboratory Results: 12/04/16 03:46 12/03/16 03:45 04/25/17 03:46 WBC 11.8 H RBC 3.94 Hgb 11.8 L Hct 35.6 L MCV 90 MCH 29.8 MCHC 33.0 RDW 15.8 H Plt Count 283 Seg Neutrophils % 78.9 H Lymphocytes % 10.9 L Monocytes % 8.7 Eosinophils % 1.2 Basophils % 0.3 Absolute Neutrophils 9.3 H Absolute Lymphocytes 1.3 Absolute Monocytes 1.0 Absolute Eosinophils 0.1 Absolute Basophils 0.0 Impressions: Transvaginal US 12/02/16 08:27 IMPRESSION: Enlarged uterus with thickened endometrium. No significant change from 09/28/2016. Chest X-Ray 12/02/16 10:00 IMPRESSION: NO ACUTE RADIOGRAPHIC FINDING IN THE CHEST. Assessment & Plan - Diagnosis (1) Bilateral lower leg cellulitis Is this a current diagnosis for this admission?: YesPlan: Blood cultures 2 obtained. Patient was started on Zosyn and vancomycin IV. She will need to keep lower extremities elevated. (2) Generalized weakness Is this a current diagnosis for this admission?: YesPlan: Physical therapy consult. Patient may need rehabilitation placement. (3) Vaginal bleeding Is this a current diagnosis for this admission?: YesPlan: Patient seen by [facility] Dr Kellogg, She was started on Provera, transvaginal ultrasound. She may need a possible endometrial biopsy some time, her body habitus would preclude from an office procedure. Due to her other medical conditions radiate the present time she is not a candidate for 1 during this hospitalization. (4) Yeast infection involving the vagina and surrounding area Is this a current diagnosis for this admission?: YesPlan: Diflucan (5) Chronic venous stasis dermatitis of both lower extremities Is this a current diagnosis for this admission?: YesPlan: Patient is keep legs elevated, SCDs and increasing activity. (6) Morbid obesity with BMI of 40.0-44.9, adult Is this a current diagnosis for this admission?: YesPlan: Patient's counseled on need for weight reduction and increasing activity. (7) Essential hypertension Is this a current diagnosis for this admission?: YesPlan: Continue antihypertensives - Time Time Spent with patient: 25-34 minutes Critical Time spent with patient: 15-24 minutes Medications reviewed and adjusted accordingly: Yes Anticipated discharge: Acute Rehab Within: when bed available
[2016-12-04] MEDS: FLUCONAZOLE 100 MG TABLET PO SCH (17:13)
[2016-12-05] MEDS: PIPERACILLIN SODIUM/TAZOBACTAM 3.375 GM in NORMAL SALINE 100 ML IV SCH ×2 (00:27→05:26)
[2016-12-05 05:20] LABS: ABSOLUTE BASOPHILS # (AUTO) 0.1 10^3/uL (0.0-0.2); ABSOLUTE EOSINOPHILS # (AUTO) 0.4 10^3/uL (0.0-0.6); ABSOLUTE LYMPHOCYTES (AUTO) 1.1 10^3/uL (0.5-4.7); ABSOLUTE MONOCYTES (AUTO) 0.9 10^3/uL (0.1-1.4); ABSOLUTE NEUT (AUTO) 7.4 10^3/uL (1.7-8.2); BASOPHILS % (AUTO) 0.7 % (0-2); EOSINOPHILS % (AUTO) 3.9 % (0-6); HEMATOCRIT 36.2 % (36.0-47.0); HEMOGLOBIN 11.9 g/dL (12.0-15.5); HGB HCT DIFFERENCE -0.5; LYMPHOCYTES % (AUTO) 11.4 % (13-45); MEAN CORPUSCULAR HEMOGLOBIN 29.3 pg (27.0-33.4); MEAN CORPUSCULAR HGB CONC 32.8 g/dL (32.0-36.0); MEAN CORPUSCULAR VOLUME 90 fl (80-97); RED BLOOD COUNT 4.05 10^6/uL (3.72-5.28); RED CELL DISTRIBUTION WIDTH 15.9 % (11.5-14.0); WHITE BLOOD COUNT 9.9 10^3/uL (4.0-10.5)
[2016-12-05 05:25] LABS: ANION GAP 10 (5-19); BLOOD UREA NITROGEN 27 mg/dL (7-20); CALCIUM 8.9 mg/dL (8.4-10.2); CARBON DIOXIDE 29 mmol/L (22-30); CHLORIDE 101 mmol/L (98-107); CREATININE RESULT 0.83 mg/dL (0.52-1.25); GLUCOSE 88 mg/dL (75-110); MAGNESIUM 2.2 mg/dL (1.6-2.3); POTASSIUM 4.9 mmol/L (3.6-5.0); SODIUM 139.7 mmol/L (137-145)
[2016-12-05] MEDS: LANSOPRAZOLE 30 MG TAB.RAP.DR PO SCH ×2 (05:27→18:34)
[2016-12-05] MEDS: VANCOMYCIN HCL 1,000 MG in DEXTROSE 5%-WATER 250 ML IV SCH (05:27)
[2016-12-05] MEDS: MEDROXYPROGESTERONE ACET 2.5 MG TABLET PO SCH (10:27)
[2016-12-05] MEDS: LACTOBACILLUS ACIDOPHILUS 250 MG TAB PO SCH ×2 (10:27→18:34)
[2016-12-05] MEDS: DOCUSATE SODIUM 100 MG CAPSULE PO SCH ×2 (10:28→18:34)
[2016-12-05] MEDS: DOXYCYCLINE HYCLATE 100 MG TABLET PO SCH ×2 (10:28→21:14)
[2016-12-05] MEDS: LOSARTAN POTASSIUM 25 MG TABLET PO SCH (10:28)
[2016-12-05] MEDS: NYSTATIN TOPICAL POWDER 15 GM TP SCH ×2 (10:33→18:35)
[2016-12-05] MEDS: MUPIROCIN 2% OINTMENT 22 GM TP SCH ×3 (10:33→18:35)
[2016-12-05] MEDS: FLUCONAZOLE 100 MG TABLET PO SCH (18:34)
[2016-12-06] MEDS: LANSOPRAZOLE 30 MG TAB.RAP.DR PO SCH ×2 (05:26→18:11)
--- NOTE | 2016-12-06 10:57 | PDOC PROGRESS REPORT ---
Subjective Progress Note for:: 12/05/16 Subjective:: Patient seen on morning rounds. She is resting comfortably in bedside chair. She is keeping her legs elevated. She states she has a fair night. She denies any shortness breath, dyspnea or cough. She denies any chest pain or dizziness. She denies any nausea, abdominal pain, or nausea. She is having mild discomfort in her lower extremities especially the left from cellulitis. Her vaginal bleeding is intermittent. Rest of the review of systems is negative. Physical Exam Vital Signs: Temp Pulse Resp BP Pulse Ox 98.2 F 93 22 H 146/59 H 100 12/06/16 08:00 12/06/16 08:00 12/06/16 08:00 12/06/16 08:00 12/06/16 08:00 Intake & Output 12/05/16 12/06/16 12/07/16 06:59 06:59 06:59 Intake Total 2112 1240 Output Total 2 2150 Balance 2110 -910 Weight 104.3 kg General appearance: PRESENT: no acute distress, morbidly obese, well-developed, well-nourished Head exam: PRESENT: atraumatic, normocephalic Eye exam: PRESENT: conjunctiva pink, EOMI, PERRLA. ABSENT: scleral icterus Ear exam: PRESENT: normal external ear exam Mouth exam: PRESENT: moist, tongue midline Neck exam: ABSENT: carotid bruit, JVD, lymphadenopathy, thyromegaly Respiratory exam: PRESENT: decreased breath sounds, symmetrical, unlabored Cardiovascular exam: PRESENT: RRR. ABSENT: diastolic murmur, rubs, systolic murmur Pulses: PRESENT: normal carotid pulses, normal radial pulses Vascular exam: PRESENT: normal capillary refill GI/Abdominal exam: PRESENT: normal bowel sounds, soft. ABSENT: distended, guarding, mass, organolmegaly, rebound, tenderness Rectal exam: PRESENT: deferred Extremities exam: PRESENT: full ROM, other - +3 edema bilateral lower extremities. ABSENT: calf tenderness, clubbing, pedal edema Neurological exam: PRESENT: alert, awake, oriented to person, oriented to place , oriented to time, oriented to situation, CN II-XII grossly intact. ABSENT: motor sensory deficit Psychiatric exam: PRESENT: appropriate affect, normal mood. ABSENT: homicidal ideation, suicidal ideation Skin exam: PRESENT: dry, intact, warm. ABSENT: cyanosis, rash Results Laboratory Results: 12/05/16 04:35 12/05/16 04:35 Impressions: Transvaginal US 12/02/16 08:27 IMPRESSION: Enlarged uterus with thickened endometrium. No significant change from 09/28/2016. Chest X-Ray 12/02/16 10:00 IMPRESSION: NO ACUTE RADIOGRAPHIC FINDING IN THE CHEST. Assessment & Plan - Diagnosis (1) Bilateral lower leg cellulitis Is this a current diagnosis for this admission?: YesPlan: Blood cultures remained negative at 72 hrs. Will transition to oral antibiotics (2) Generalized weakness Is this a current diagnosis for this admission?: YesPlan: Physical therapy consult. Patient may need rehabilitation placement. (3) Vaginal bleeding Is this a current diagnosis for this admission?: YesPlan: Patient seen by [employer]PRESENTATIVE Dr Kellogg, She was started on Provera, transvaginal ultrasound. She may need a possible endometrial biopsy some time, her body habitus would preclude from an office procedure. Due to her other medical conditions radiate the present time she is not a candidate for 1 during this hospitalization. (4) Yeast infection involving the vagina and surrounding area Is this a current diagnosis for this admission?: YesPlan: Resolving (5) Chronic venous stasis dermatitis of both lower extremities Is this a current diagnosis for this admission?: YesPlan: Patient is keep legs elevated, SCDs and increasing activity. (6) Morbid obesity with BMI of 40.0-44.9, adult Is this a current diagnosis for this admission?: YesPlan: Patient's counseled on need for weight reduction and increasing activity. (7) Essential hypertension Is this a current diagnosis for this admission?: YesPlan: Continue antihypertensives (8) ANNA (obstructive sleep apnea) Is this a current diagnosis for this admission?: YesPlan: Continue CPAP at HS - Time Time Spent with patient: 25-34 minutes Critical Time spent with patient: 15-24 minutes Medications reviewed and adjusted accordingly: Yes Anticipated discharge: Acute Rehab
--- NOTE | 2016-12-06 10:59 | PDOC PROGRESS REPORT ---
Subjective Progress Note for:: 12/06/16 Subjective:: Patient seen on morning rounds. She is resting comfortably in bedside chair. She is keeping her legs elevated. She ambulated yesterday with physical therapy. She denies any shortness breath, dyspnea or cough. She denies any chest pain or dizziness. She denies any nausea, abdominal pain, or nausea. She is having mild discomfort in her lower extremities especially the left from cellulitis. Her vaginal bleeding is intermittent. Rest of the review of systems is negative. Physical Exam Vital Signs: Temp Pulse Resp BP Pulse Ox 98.2 F 93 22 H 146/59 H 100 12/06/16 08:00 12/06/16 08:00 12/06/16 08:00 12/06/16 08:00 12/06/16 08:00 Intake & Output 12/05/16 12/06/16 12/07/16 06:59 06:59 06:59 Intake Total 2112 1240 Output Total 2 2150 Balance 2110 -910 Weight 104.3 kg General appearance: PRESENT: no acute distress, morbidly obese, well-developed, well-nourished Head exam: PRESENT: atraumatic, normocephalic Eye exam: PRESENT: conjunctiva pink, EOMI, PERRLA. ABSENT: scleral icterus Ear exam: PRESENT: normal external ear exam Neck exam: ABSENT: carotid bruit, JVD, lymphadenopathy, thyromegaly Respiratory exam: PRESENT: decreased breath sounds, symmetrical, unlabored Cardiovascular exam: PRESENT: RRR. ABSENT: diastolic murmur, rubs, systolic murmur Pulses: PRESENT: normal carotid pulses, normal radial pulses Vascular exam: PRESENT: normal capillary refill GI/Abdominal exam: PRESENT: normal bowel sounds, soft. ABSENT: distended, guarding, mass, organolmegaly, rebound, tenderness Rectal exam: PRESENT: deferred Extremities exam: PRESENT: full ROM. ABSENT: calf tenderness, clubbing, pedal edema Musculoskeletal exam: PRESENT: ambulatory, full ROM, tenderness Neurological exam: PRESENT: alert, awake, oriented to person, oriented to place , oriented to time, oriented to situation, CN II-XII grossly intact. ABSENT: motor sensory deficit Psychiatric exam: PRESENT: appropriate affect, normal mood. ABSENT: homicidal ideation, suicidal ideation Skin exam: PRESENT: dry, intact, warm. ABSENT: cyanosis, rash Results Laboratory Results: 12/05/16 04:35 12/05/16 04:35 Impressions: Transvaginal US 12/02/16 08:27 IMPRESSION: Enlarged uterus with thickened endometrium. No significant change from 09/28/2016. Chest X-Ray 12/02/16 10:00 IMPRESSION: NO ACUTE RADIOGRAPHIC FINDING IN THE CHEST. Assessment & Plan - Diagnosis (1) Bilateral lower leg cellulitis Is this a current diagnosis for this admission?: YesPlan: Blood cultures remained negative at 72 hrs. Will transition to oral antibiotics (2) Generalized weakness Is this a current diagnosis for this admission?: YesPlan: Physical therapy consult. Patient may need rehabilitation placement. (3) Vaginal bleeding Is this a current diagnosis for this admission?: YesPlan: Patient seen by AL[employer] SE[employer] Dr Kellogg, She was started on Provera, transvaginal ultrasound. She may need a possible endometrial biopsy some time, her body habitus would preclude from an office procedure. Due to her other medical conditions radiate the present time she is not a candidate for 1 during this hospitalization. (4) Yeast infection involving the vagina and surrounding area Is this a current diagnosis for this admission?: YesPlan: Resolving (5) Chronic venous stasis dermatitis of both lower extremities Is this a current diagnosis for this admission?: YesPlan: Patient is keep legs elevated, SCDs and increasing activity. (6) Morbid obesity with BMI of 40.0-44.9, adult Is this a current diagnosis for this admission?: YesPlan: Patient's counseled on need for weight reduction and increasing activity. (7) Essential hypertension Is this a current diagnosis for this admission?: YesPlan: Continue antihypertensives (8) ANNA (obstructive sleep apnea) Is this a current diagnosis for this admission?: YesPlan: Continue CPAP at HS - Time Time Spent with patient: 25-34 minutes Critical Time spent with patient: 15-24 minutes Medications reviewed and adjusted accordingly: Yes Anticipated discharge: Acute Rehab Within: when bed available
[2016-12-06] MEDS: DOCUSATE SODIUM 100 MG CAPSULE PO SCH ×2 (11:26→18:11)
[2016-12-06] MEDS: LACTOBACILLUS ACIDOPHILUS 250 MG TAB PO SCH ×2 (11:27→18:10)
[2016-12-06] MEDS: DOXYCYCLINE HYCLATE 100 MG TABLET PO SCH ×2 (11:27→21:12)
[2016-12-06] MEDS: MEDROXYPROGESTERONE ACET 2.5 MG TABLET PO SCH (11:27)
[2016-12-06] MEDS: NYSTATIN TOPICAL POWDER 15 GM TP SCH ×2 (11:28→18:11)
[2016-12-06] MEDS: LOSARTAN POTASSIUM 25 MG TABLET PO SCH (11:28)
[2016-12-06] MEDS: FLUCONAZOLE 100 MG TABLET PO SCH (18:10)
[2016-12-06] MEDS: MUPIROCIN 2% OINTMENT 22 GM TP SCH (20:34)
[2016-12-07] MEDS: LANSOPRAZOLE 30 MG TAB.RAP.DR PO SCH ×2 (06:28→18:02)
[2016-12-07] MEDS: MEDROXYPROGESTERONE ACET 2.5 MG TABLET PO SCH (09:12)
[2016-12-07] MEDS: LACTOBACILLUS ACIDOPHILUS 250 MG TAB PO SCH ×2 (09:12→18:02)
[2016-12-07] MEDS: DOXYCYCLINE HYCLATE 100 MG TABLET PO SCH ×2 (09:13→22:27)
[2016-12-07] MEDS: LOSARTAN POTASSIUM 25 MG TABLET PO SCH (09:13)
[2016-12-07] MEDS: NYSTATIN TOPICAL POWDER 15 GM TP SCH ×2 (09:14→18:00)
[2016-12-07] MEDS: DOCUSATE SODIUM 100 MG CAPSULE PO SCH ×2 (09:14→18:03)
[2016-12-07] MEDS: MUPIROCIN 2% OINTMENT 22 GM TP SCH ×3 (09:14→18:00)
--- NOTE | 2016-12-07 11:34 | PDOC TRANSFER SUMMARY ---
General - Admit/Disc Date/PCP Admission Date/Primary Care Provider: 12/02/16 12:22 Discharge Date: 12/07/16 - Discharge Diagnosis (1) Bilateral lower leg cellulitis Is this a current diagnosis for this admission?: YesSummary: Continue doxycyline 100 mg bid for 6 more days. Bactroban ointment three times daily for the next week. Keep legs elevated when sitting (2) Generalized weakness Is this a current diagnosis for this admission?: YesSummary: Improving with physical therapy and nursing (3) Vaginal bleeding Is this a current diagnosis for this admission?: YesSummary: Continue provera follow up with nuclear scientist in a month (4) Yeast infection involving the vagina and surrounding area Is this a current diagnosis for this admission?: YesSummary: Treated. Continue miconazole powder to groin folds until clear (5) Chronic venous stasis dermatitis of both lower extremities Is this a current diagnosis for this admission?: Yes (6) Morbid obesity with BMI of 40.0-44.9, adult Is this a current diagnosis for this admission?: Yes (7) Essential hypertension Is this a current diagnosis for this admission?: YesSummary: Continue current medications (8) ANNA (obstructive sleep apnea) Is this a current diagnosis for this admission?: YesSummary: Patient refuses CPAP or trilogy. Wears oxygen at 3l/min via n/c continously - Additional Information Resuscitation Status: Do Not Resuscitate Discharge Diet: Cardiac Discharge Activity: Activity As Tolerated, Keep Legs Elevated Home Medications: Diazepam [Valium 2 mg Tablet] 2 mg PO DAILYP PRN 12/02/16 Losartan Potassium [Cozaar 25 mg Tablet] 25 mg PO QAM 12/02/16 Acetaminophen [Tylenol 325 mg Tablet] 650 mg PO Q4HP PRN tablet 12/07/16 Docusate Sodium [Colace 100 mg Capsule] 100 mg PO BID capsule 12/07/16 Doxycycline Hyclate [Vibramycin 100 mg Tablet] 100 mg PO Q12 #12 tablet Ipratropium/Albuterol Sulfate [Duoneb 3 ml Ampul] 3 ml NEB RTQ3HP PRN vial.neb 12/07/16 Medroxyprogesterone Acet [Provera 2.5 mg Tablet] 5 mg PO DAILY #0 tablet Mupirocin [Bactroban 2% Ointment 22 gm] 1 applic TP TID #1 tube 12/07/16 Nystatin [Mycostatin Topical Powder 15 gm] 1 applic TP BID bottle 12/07/16 History of Present Illness Patient complains of: Bilateral leg pain and weakness History of Present Illness: MANNY GLOVER is a 71 year old female patient of Dr. Croft in [place], who presents to [facility]'s emergency room this morning with complaints of progressive weakness and bilateral leg redness and swelling. She states he has chronic venous insufficiency and has problems with chronic edema in her lower extremities. She has noted increased redness over the both anterior surfaces of her lower legs. She has some purulent drainage from the left lower extremity wounds. She denies any fever or chills, she denies any rigors. She states she was discharged 2 weeks ago from [facility] after a three-week stay. She states presently she lives alone. She does have home health that comes in to times weekly. She states over the last 2 days she has had difficulty ambulating because of the intense pain in both of her lower extremities and swelling. She also has history of COPD on home oxygen therapy continuously at 2 L/m, essential hypertension, morbid obesity, chronic venous insufficiency bilaterally Hospital Course Hospital Course: Patient with referred to the hospitalist service for admission. She was admitted to telemetry unit. She was started on IV broad-spectrum antibiotics after blood cultures 2 were obtained. She had physical therapy consulted for mobility issues and weakness. Gynecology was consult for her vaginal bleeding issues. Dr. Kellogg, saw the patient in consult. She was started on Provera. She did not feel she was in need of a endometrial biopsy at the present time. Transvaginal ultrasound was obtained however. Her cellulitis improved. Antibiotics transitioned to oral. Social service was consult for discharge planning. She was offered a bed at [facility]. Physical Exam Vital Signs: Temp Pulse Resp BP Pulse Ox 98.4 F 87 20 150/76 H 100 12/07/16 07:42 12/07/16 07:42 12/07/16 07:42 12/07/16 07:42 12/07/16 07:42 Intake & Output 12/06/16 12/07/16 12/08/16 06:59 06:59 06:59 Intake Total 1240 653 Output Total 2150 450 Balance -910 203 Weight 106.2 kg General appearance: PRESENT: no acute distress, morbidly obese, well-developed, well-nourished Head exam: PRESENT: atraumatic Eye exam: PRESENT: conjunctiva pink, EOMI, PERRLA. ABSENT: scleral icterus Ear exam: PRESENT: normal external ear exam Mouth exam: PRESENT: moist, tongue midline Neck exam: ABSENT: carotid bruit, JVD, lymphadenopathy, thyromegaly Respiratory exam: PRESENT: clear to auscultation michelle, decreased breath sounds, symmetrical, unlabored. ABSENT: rales, rhonchi, wheezes Cardiovascular exam: PRESENT: RRR. ABSENT: diastolic murmur, rubs, systolic murmur Pulses: PRESENT: normal dorsalis pedis pul Vascular exam: PRESENT: normal capillary refill GI/Abdominal exam: PRESENT: normal bowel sounds, soft. ABSENT: distended, guarding, mass, organolmegaly, rebound, tenderness Rectal exam: PRESENT: deferred Extremities exam: PRESENT: calf tenderness, +2 edema - chronic venous changes bilaterally, extensive scars on left lower leg from trauma, other Musculoskeletal exam: PRESENT: ambulatory, full ROM Neurological exam: PRESENT: alert, awake, oriented to person, oriented to place , oriented to time, oriented to situation, CN II-XII grossly intact. ABSENT: motor sensory deficit Psychiatric exam: PRESENT: appropriate affect, normal mood. ABSENT: homicidal ideation, suicidal ideation Skin exam: PRESENT: dry, intact, warm. ABSENT: cyanosis, rash Results Laboratory Results: 12/05/16 04:35 12/05/16 04:35 Impressions: Transvaginal US 12/02/16 08:27 IMPRESSION: Enlarged uterus with thickened endometrium. No significant change from 09/28/2016. Chest X-Ray 12/02/16 10:00 IMPRESSION: NO ACUTE RADIOGRAPHIC FINDING IN THE CHEST. Transfer Plan - Disposition Transfer [facility] - Time Spent with Patient Time spent with patient: Less than 30 Minutes Qualifiers PATEINT BEING DISCHARGED WITH ANY OF THE FOLLOWING DIAGNOSIS?: No
--- NOTE | 2016-12-07 16:07 | PDOC PROGRESS REPORT ---
Subjective Progress Note for:: 12/07/16 Subjective:: Patient seen on morning rounds. She is resting comfortably in bedside chair. She is keeping her legs elevated. She ambulated yesterday with physical therapy. She denies any shortness breath, dyspnea or cough. She denies any chest pain or dizziness. She denies any nausea, abdominal pain, or nausea. She is having mild discomfort in her lower extremities especially the left from cellulitis. Her vaginal bleeding is intermittent. Rest of the review of systems is negative. Physical Exam Vital Signs: Temp Pulse Resp BP Pulse Ox 98.4 F 84 20 144/62 H 100 12/07/16 07:42 12/07/16 14:00 12/07/16 11:55 12/07/16 11:55 12/07/16 11:55 Intake & Output 12/06/16 12/07/16 12/08/16 06:59 06:59 06:59 Intake Total 1240 653 400 Output Total 2150 450 350 Balance -910 203 50 Weight 106.2 kg General appearance: PRESENT: no acute distress, morbidly obese, well-developed, well-nourished Head exam: PRESENT: atraumatic, normocephalic Eye exam: PRESENT: conjunctiva pink, EOMI, PERRLA. ABSENT: scleral icterus Ear exam: PRESENT: normal external ear exam Mouth exam: PRESENT: moist, tongue midline Neck exam: ABSENT: carotid bruit, JVD, lymphadenopathy, thyromegaly Respiratory exam: PRESENT: clear to auscultation michelle. ABSENT: rales, rhonchi, wheezes Cardiovascular exam: PRESENT: RRR. ABSENT: diastolic murmur, rubs, systolic murmur Pulses: PRESENT: normal dorsalis pedis pul Vascular exam: PRESENT: normal capillary refill GI/Abdominal exam: PRESENT: normal bowel sounds, soft. ABSENT: distended, guarding, mass, organolmegaly, rebound, tenderness Rectal exam: PRESENT: deferred Extremities exam: PRESENT: full ROM, +2 edema - chronic venous, other. ABSENT: calf tenderness, clubbing, pedal edema Neurological exam: PRESENT: alert, awake, oriented to person, oriented to place , oriented to time, oriented to situation, CN II-XII grossly intact. ABSENT: motor sensory deficit Psychiatric exam: PRESENT: appropriate affect, normal mood. ABSENT: homicidal ideation, suicidal ideation Skin exam: PRESENT: other - chronic venous insufficiency of bilateral lower extremities Results Laboratory Results: 12/05/16 04:35 12/05/16 04:35 Impressions: Transvaginal US 12/02/16 08:27 IMPRESSION: Enlarged uterus with thickened endometrium. No significant change from 09/28/2016. Chest X-Ray 12/02/16 10:00 IMPRESSION: NO ACUTE RADIOGRAPHIC FINDING IN THE CHEST. Assessment & Plan - Diagnosis (1) Bilateral lower leg cellulitis Is this a current diagnosis for this admission?: YesPlan: Blood cultures remained negative at 72 hrs. Will transition to oral antibiotics (2) Generalized weakness Is this a current diagnosis for this admission?: YesPlan: Physical therapy consult. Patient may need rehabilitation placement. (3) Vaginal bleeding Is this a current diagnosis for this admission?: YesPlan: Patient seen by TELEVISION HOST Dr Kellogg, She was started on Provera, transvaginal ultrasound. She may need a possible endometrial biopsy some time, her body habitus would preclude from an office procedure. Due to her other medical conditions radiate the present time she is not a candidate for 1 during this hospitalization. (4) Yeast infection involving the vagina and surrounding area Is this a current diagnosis for this admission?: YesPlan: Resolving (5) Chronic venous stasis dermatitis of both lower extremities Is this a current diagnosis for this admission?: YesPlan: Patient is keep legs elevated, SCDs and increasing activity. (6) Morbid obesity with BMI of 40.0-44.9, adult Is this a current diagnosis for this admission?: YesPlan: Patient's counseled on need for weight reduction and increasing activity. (7) Essential hypertension Is this a current diagnosis for this admission?: YesPlan: Continue antihypertensives (8) ANNA (obstructive sleep apnea) Is this a current diagnosis for this admission?: YesPlan: Continue CPAP at HS - Time Time Spent with patient: 25-34 minutes Critical Time spent with patient: 15-24 minutes
[2016-12-07] MEDS: FLUCONAZOLE 100 MG TABLET PO SCH (18:02)
[2016-12-08] MEDS: LANSOPRAZOLE 30 MG TAB.RAP.DR PO SCH ×2 (06:49→18:20)
[2016-12-08] MEDS: DOXYCYCLINE HYCLATE 100 MG TABLET PO SCH ×2 (10:48→22:47)
[2016-12-08] MEDS: DOCUSATE SODIUM 100 MG CAPSULE PO SCH ×2 (10:48→18:57)
[2016-12-08] MEDS: MEDROXYPROGESTERONE ACET 2.5 MG TABLET PO SCH (10:48)
[2016-12-08] MEDS: LOSARTAN POTASSIUM 25 MG TABLET PO SCH (10:48)
[2016-12-08] MEDS: LACTOBACILLUS ACIDOPHILUS 250 MG TAB PO SCH ×2 (10:50→18:20)
[2016-12-08] MEDS: NYSTATIN TOPICAL POWDER 15 GM TP SCH ×2 (11:34→18:19)
[2016-12-08] MEDS: MUPIROCIN 2% OINTMENT 22 GM TP SCH ×3 (11:35→18:20)
--- NOTE | 2016-12-08 12:11 | PDOC PROGRESS REPORT ---
Subjective Progress Note for:: 12/08/16 Subjective:: Patient seen on morning rounds. She is resting comfortably in bedside chair. She is keeping her legs elevated. She ambulated yesterday with physical therapy. She denies any shortness breath, dyspnea or cough. She denies any chest pain or dizziness. She denies any nausea, abdominal pain, or nausea. She is having mild discomfort in her lower extremities especially the left from cellulitis. Her vaginal bleeding is intermittent. Rest of the review of systems is negative. Physical Exam Vital Signs: Temp Pulse Resp BP Pulse Ox 98.1 F 94 18 148/63 H 100 12/08/16 08:00 12/08/16 08:00 12/08/16 08:00 12/08/16 08:00 12/08/16 08:00 Intake & Output 12/07/16 12/08/16 12/09/16 06:59 06:59 06:59 Intake Total 653 1290 Output Total 450 1550 Balance 203 -260 Weight 106.2 kg 106.2 kg General appearance: PRESENT: no acute distress, morbidly obese, well-developed, well-nourished Head exam: PRESENT: atraumatic, normocephalic Eye exam: PRESENT: conjunctiva pink, EOMI, PERRLA. ABSENT: scleral icterus Ear exam: PRESENT: normal external ear exam Mouth exam: PRESENT: moist, tongue midline Neck exam: ABSENT: carotid bruit, JVD, lymphadenopathy, thyromegaly Respiratory exam: PRESENT: clear to auscultation michelle, decreased breath sounds, symmetrical, unlabored. ABSENT: rales, rhonchi, wheezes Cardiovascular exam: PRESENT: RRR. ABSENT: diastolic murmur, rubs, systolic murmur Pulses: PRESENT: normal dorsalis pedis pul Vascular exam: PRESENT: normal capillary refill GI/Abdominal exam: PRESENT: normal bowel sounds, soft. ABSENT: distended, guarding, mass, organolmegaly, rebound, tenderness Rectal exam: PRESENT: deferred Extremities exam: PRESENT: other - +2 edema with chronic venous stasis, cellulitis is resolving Musculoskeletal exam: PRESENT: ambulatory, full ROM Neurological exam: PRESENT: alert, awake, oriented to person, oriented to place , oriented to time, oriented to situation, CN II-XII grossly intact. ABSENT: motor sensory deficit Psychiatric exam: PRESENT: appropriate affect, normal mood. ABSENT: homicidal ideation, suicidal ideation Skin exam: PRESENT: dry, intact, warm, other - chronic venous stasis changes over both lower extremities, left lower anterior calf with multiple surgical scars from previous trauma. ABSENT: cyanosis, rash Results Laboratory Results: 12/05/16 04:35 12/05/16 04:35 12/02/16 19:30 Blood Blood Culture - Final NO GROWTH IN 5 DAYS 12/02/16 17:43 Blood Blood Culture - Final NO GROWTH IN 5 DAYS Impressions: Transvaginal US 12/02/16 08:27 IMPRESSION: Enlarged uterus with thickened endometrium. No significant change from 09/28/2016. Chest X-Ray 12/02/16 10:00 IMPRESSION: NO ACUTE RADIOGRAPHIC FINDING IN THE CHEST. Assessment & Plan - Diagnosis (1) Bilateral lower leg cellulitis Is this a current diagnosis for this admission?: YesPlan: Blood cultures remained negative at 72 hrs. Will transition to oral antibiotics (2) Generalized weakness Is this a current diagnosis for this admission?: YesPlan: Physical therapy consult. Patient may need rehabilitation placement. (3) Vaginal bleeding Is this a current diagnosis for this admission?: YesPlan: Patient seen by TRAPPER ANIMAL Dr Kellogg, She was started on Provera, transvaginal ultrasound. She may need a possible endometrial biopsy some time, her body habitus would preclude from an office procedure. Due to her other medical conditions radiate the present time she is not a candidate for 1 during this hospitalization. (4) Yeast infection involving the vagina and surrounding area Is this a current diagnosis for this admission?: YesPlan: Resolving (5) Chronic venous stasis dermatitis of both lower extremities Is this a current diagnosis for this admission?: YesPlan: Patient is keep legs elevated, SCDs and increasing activity. (6) Morbid obesity with BMI of 40.0-44.9, adult Is this a current diagnosis for this admission?: YesPlan: Patient's counseled on need for weight reduction and increasing activity. (7) Essential hypertension Is this a current diagnosis for this admission?: YesPlan: Continue antihypertensives (8) ANNA (obstructive sleep apnea) Is this a current diagnosis for this admission?: YesPlan: Continue CPAP at HS - Time Time Spent with patient: 25-34 minutes Critical Time spent with patient: 15-24 minutes Medications reviewed and adjusted accordingly: Yes
[2016-12-08] MEDS: FLUCONAZOLE 100 MG TABLET PO SCH (18:19)
[2016-12-09] MEDS: LANSOPRAZOLE 30 MG TAB.RAP.DR PO SCH ×2 (05:59→17:57)
[2016-12-09] MEDS: LACTOBACILLUS ACIDOPHILUS 250 MG TAB PO SCH ×2 (11:09→17:57)
[2016-12-09] MEDS: MEDROXYPROGESTERONE ACET 2.5 MG TABLET PO SCH (11:09)
[2016-12-09] MEDS: LOSARTAN POTASSIUM 25 MG TABLET PO SCH (11:09)
[2016-12-09] MEDS: DOXYCYCLINE HYCLATE 100 MG TABLET PO SCH ×2 (11:10→23:01)
[2016-12-09] MEDS: MUPIROCIN 2% OINTMENT 22 GM TP SCH ×3 (11:10→17:57)
[2016-12-09] MEDS: DOCUSATE SODIUM 100 MG CAPSULE PO SCH ×2 (11:15→17:57)
--- NOTE | 2016-12-09 12:24 | PDOC PROGRESS REPORT ---
Subjective Progress Note for:: 12/09/16 Subjective:: Patient seen on morning rounds. She is resting comfortably in bedside chair. She is keeping her legs elevated. She ambulated yesterday with physical therapy. She denies any shortness breath, dyspnea or cough. She denies any chest pain or dizziness. She denies any nausea, abdominal pain, or nausea. She is having mild discomfort in her lower extremities especially the left from chronic venous insufficiency. Her vaginal bleeding is intermittent. Rest of the review of systems is negative. Physical Exam Vital Signs: Temp Pulse Resp BP Pulse Ox 98.6 F 109 H 18 135/96 H 100 12/09/16 08:00 12/09/16 08:00 12/09/16 08:00 12/09/16 08:00 12/09/16 08:00 Intake & Output 12/08/16 12/09/16 12/10/16 06:59 06:59 06:59 Intake Total 1290 947 Output Total 1550 1600 Balance -260 -653 Weight 106.2 kg General appearance: PRESENT: no acute distress, morbidly obese, well-developed, well-nourished Head exam: PRESENT: atraumatic, normocephalic Eye exam: PRESENT: conjunctiva pink, EOMI, PERRLA. ABSENT: scleral icterus Ear exam: PRESENT: normal external ear exam Mouth exam: PRESENT: moist, tongue midline Neck exam: ABSENT: carotid bruit, JVD, lymphadenopathy, thyromegaly Respiratory exam: PRESENT: clear to auscultation michelle. ABSENT: rales, rhonchi, wheezes Cardiovascular exam: PRESENT: RRR. ABSENT: diastolic murmur, rubs, systolic murmur Pulses: PRESENT: normal dorsalis pedis pul Vascular exam: PRESENT: normal capillary refill GI/Abdominal exam: PRESENT: normal bowel sounds, soft. ABSENT: distended, guarding, mass, organolmegaly, rebound, tenderness Rectal exam: PRESENT: deferred Extremities exam: PRESENT: full ROM, tenderness, +2 edema - bilaterally. ABSENT : calf tenderness, clubbing, pedal edema Musculoskeletal exam: PRESENT: ambulatory, full ROM Neurological exam: PRESENT: alert Psychiatric exam: PRESENT: appropriate affect, normal mood. ABSENT: homicidal ideation, suicidal ideation Skin exam: PRESENT: other - Chronic venous stasis of both lower extremities left anterior lower extremity with multiple surgical scars from trauma. Results Laboratory Results: 12/05/16 04:35 12/05/16 04:35 Impressions: Transvaginal US 12/02/16 08:27 IMPRESSION: Enlarged uterus with thickened endometrium. No significant change from 09/28/2016. Chest X-Ray 12/02/16 10:00 IMPRESSION: NO ACUTE RADIOGRAPHIC FINDING IN THE CHEST. Assessment & Plan - Diagnosis (1) Bilateral lower leg cellulitis Is this a current diagnosis for this admission?: YesPlan: Continue oral antibiotics and Bactroban ointment (2) Generalized weakness Is this a current diagnosis for this admission?: YesPlan: Improving with physical therapy. Mobility issues secondary to morbid obesity. (3) Vaginal bleeding Is this a current diagnosis for this admission?: YesPlan: Patient seen by WELDING MACHINE OPERATOR RESISTANCE Dr Kellogg, She was started on Provera, transvaginal ultrasound. She may need a possible endometrial biopsy some time, her body habitus would preclude from an office procedure. Due to her other medical conditions radiate the present time she is not a candidate for 1 during this hospitalization. (4) Yeast infection involving the vagina and surrounding area Is this a current diagnosis for this admission?: YesPlan: Resolved (5) Chronic venous stasis dermatitis of both lower extremities Is this a current diagnosis for this admission?: YesPlan: Patient is keep legs elevated, SCDs and increasing activity. (6) Morbid obesity with BMI of 40.0-44.9, adult Is this a current diagnosis for this admission?: YesPlan: Patient's counseled on need for weight reduction and increasing activity. (7) Essential hypertension Is this a current diagnosis for this admission?: YesPlan: Continue antihypertensives (8) ANNA (obstructive sleep apnea) Is this a current diagnosis for this admission?: YesPlan: Continue CPAP at HS - Time Time Spent with patient: 25-34 minutes Critical Time spent with patient: 15-24 minutes Medications reviewed and adjusted accordingly: Yes Within: within 24 hours
[2016-12-10] MEDS: LANSOPRAZOLE 30 MG TAB.RAP.DR PO SCH ×2 (06:39→18:04)
[2016-12-10] MEDS: MEDROXYPROGESTERONE ACET 2.5 MG TABLET PO SCH (11:06)
[2016-12-10] MEDS: DOCUSATE SODIUM 100 MG CAPSULE PO SCH ×2 (11:07→18:04)
[2016-12-10] MEDS: LACTOBACILLUS ACIDOPHILUS 250 MG TAB PO SCH ×2 (11:07→18:04)
[2016-12-10] MEDS: DOXYCYCLINE HYCLATE 100 MG TABLET PO SCH (11:07)
[2016-12-10] MEDS: LOSARTAN POTASSIUM 25 MG TABLET PO SCH (11:07)
[2016-12-10] MEDS: MUPIROCIN 2% OINTMENT 22 GM TP SCH ×3 (11:10→18:04)
[2016-12-10 16:08] VITALS: BP 142/69
== END 2016-12-10 18:20 | DRG 603 ==
LOC: ER 06:45 → EH 12:22 → 4N 17:06
DX: L03.116 Cellulitis of left lower limb (principal); Z68.42 Body mass index [BMI] 45.0-49.9, adult; L03.115 Cellulitis of right lower limb; N95.0 Postmenopausal bleeding; Z66 Do not resuscitate; B37.3 Candidiasis of vulva and vagina; I10 Essential (primary) hypertension; I73.9 Peripheral vascular disease, unspecified; J44.9 Chronic obstructive pulmonary disease, unspecified; I87.2 Venous insufficiency (chronic) (peripheral); I87.8 Other specified disorders of veins; G47.33 Obstructive sleep apnea (adult) (pediatric); E66.01 Morbid (severe) obesity due to excess calories; Z60.2 Problems related to living alone; Z99.81 Dependence on supplemental oxygen
CPT/HCPCS: 36415; 71010; 76830; 80048; 80053; 80202; 81001; 83735; 85025; 86850; 86900; 86901; 87040; 93976; 94640; 96372; 99285; G8978-GP; G8979-GP; J1100; J1650; J2543; J3370; J3490; J7060; J7620

== ENCOUNTER 2018-01-10 13:09 | Inpatient (IN) | payer MEDICARE, MEDICAID ==
--- NOTE | 2018-01-10 14:00 | ER Document Report ---
ED Extremity Problem, Lower - General Chief Complaint: Foot Pain Stated Complaint: LEFT FOOT PAIN Time Seen by Provider: 01/10/18 13:36 Notes: 72-year-old female patient emergency department chief complaint of left foot pain. Pain is getting worse over the last several days. Patient is fdc patient. Has been a fdc for couple of years. Had respiratory issues. Denies any fever, chills, sweats. Has baseline shortness of breath. Chronic lower extremity edema and swelling. TRAVEL OUTSIDE OF THE [place] IN LAST 30 DAYS: No - HPI Location: 4th Toe Occurred: Last week [facility]: [facility] Onset/Duration: Gradual, Worse - Related Data Allergies/Adverse Reactions: nut - unspecified Allergy (Verified 12/02/16 06:52) chocolate Allergy (Uncoded 12/02/16 06:52) wasp Allergy (Uncoded 12/02/16 06:52) Past Medical History - General Information source: Patient, [facility] Records - Social History Smoking Status: Never Smoker Chew tobacco use (# tins/day): No Frequency of alcohol use: None Drug Abuse: None Lives with: [facility] Family History: Arthritis, CAD, CVA, Hyperlipidemia, Hypertension Patient has suicidal ideation: No Patient has homicidal ideation: No - Past Medical History Cardiac Medical History: Reports: Hx Hypertension, Hx Peripheral Vascular Disease, Hx Heart Murmur Pulmonary Medical History: Reports: Hx COPD Neurological Medical History: Denies: Hx Migraine Renal/ Medical History: Denies: Hx Peritoneal Dialysis Musculoskeltal Medical History: Reports Hx Arthritis, Reports Hx Musculoskeletal Deformity, Reports Hx Musculoskeletal Trauma Skin Medical History: Reports Hx Cellulitis Traumatic Medical History: Reports: Hx Fractures - Differential Past Surgical History: Reports: Hx Orthopedic Surgery - left tib/fib skin graft to same area - Immunizations Hx Diphtheria, Pertussis, Tetanus Vaccination: Yes Review of Systems - Review of Systems Constitutional: denies: Fever, Malaise, Weakness EENT: denies: Blurred vision, Difficulty swallowing, Mouth swelling Cardiovascular: denies: Chest pain, Palpitations, Heart racing Respiratory: Short of breath. denies: Cough, Hurts to breathe, Wheezing Gastrointestinal: denies: Abdominal pain, Diarrhea, Nausea, Vomiting Genitourinary: denies: Burning, Dysuria, Frequency, Urgency, Retention Musculoskeletal: See HPI, Leg swelling, Other - Fourth digit left foot pain and redness and swelling. Skin: See HPI, Other - Ingrown toenail fourth digit left foot Hematologic/Lymphatic: No symptoms reported Neurological/Psychological: No symptoms reported Physical Exam - Vital signs Vitals: Resp 20 01/10/18 13:20 Interpretation: Tachycardic, Tachypneic. No: Febrile - General General appearance: Appears well, Alert - Respiratory Respiratory status: No respiratory distress, Tachypnea. No: Respiratory distress, Labored, Retractions Chest status: Nontender Breath sounds: Normal Chest palpation: Normal - Cardiovascular Rhythm: Tachycardia Heart sounds: Normal auscultation Murmur: Yes - Abdominal Inspection: Normal Distension: No distension Bowel sounds: Normal Tenderness: Nontender Organomegaly: No organomegaly - Extremities General upper extremity: Normal inspection, Nontender, Normal color, Normal ROM , Normal temperature General lower extremity: Other - Patient has significant bilateral lower extremity pitting edema to the knees. Has chronic edematous changes with a ingrown toenail on the fourth digit of the left foot with significant amount of edema and erythema noted to the digit which is significantly different than other digits. Very tender to the touch. No: Shania's sign - Neurological Neuro grossly intact: Yes Cognition: Normal Orientation: AAOx4 [place] Coma Scale Eye Opening: Spontaneous [place] Coma Scale Verbal: Oriented [place] Coma Scale Motor: Obeys Commands Iban Coma Scale Total: 15 Speech: Normal Motor strength normal: LUE, RUE, LLE, RLE Sensory: Normal - Skin Skin Temperature: Warm Skin Moisture: Dry Skin Color: Normal, Other - There is a swollen fourth digit left foot with paronychial involvement Course - Re-evaluation Re-evalutation: 01/10/18 14:42 X-ray of the left foot and reassess. More likely this will be treatable by a paronychial removal and antibiotics and follow-up with coal pulverizer operator or refueler. Patient does not appear septic. Afebrile. Baseline respiratory status. 01/10/18 15:34 Patient has osteomyelitis of the fourth digit on the left foot. Will now get basic labs. Orthopedic consult. Medicine admit and reassess. 01/10/18 15:38 Orthopedics consulted. Medicine has been consulted. Will admit to medicine floor at this time. - Vital Signs Vital signs: Temp Pulse Resp BP Pulse Ox 20 01/10/18 13:20 Discharge - Discharge Clinical Impression: Osteomyelitis of toe of left foot Condition: Good Disposition: ADMITTED INPATIENT Admitting Provider: Mary[facility] Unit Admitted: Medical Floor Referrals: JAMES ESCOBAR MD [Primary Care Provider] - Follow up as needed
[2018-01-10] MEDS ORDERED: LIDOCAINE 1% INJ (10 MG/ML) 10 ML MDV INJ ONE (15:00)
--- NOTE | 2018-01-10 15:18 | RADIOLOGY REPORT (SQ) ---
EXAM DESCRIPTION: FOOT LEFT COMPLETE COMPLETED DATE/TIME: 01/10/2018 3:08 pm REASON FOR STUDY: fourth toe infection COMPARISON: None. NUMBER OF VIEWS: Three views. TECHNIQUE: AP, lateral and oblique radiographic images acquired of the left foot. LIMITATIONS: None. FINDINGS: MINERALIZATION: Osteopenia. BONES: No acute fracture dislocation. Portions of the cortex of the 4th distal phalanx is absent. JOINTS: No effusions. SOFT TISSUES: No soft tissue swelling. No foreign body. OTHER: No other significant finding. IMPRESSION: Likely osteomyelitis involving the 4th distal phalanx. TECHNICAL DOCUMENTATION: JOB ID: [id number] [employer] ([employer] All Rights Reserved Reading location - IP/workstation name: [email or web address]
[2018-01-10] MEDS ORDERED: VANCOMYCIN HCL 0 MG in DEXTROSE 5%-WATER 250 ML IV NR (16:30)
[2018-01-10] MEDS ORDERED: CIPROFLOXACIN 400 MG/D5W RTU 400 MG/200 ML RTUPB IV SCH (17:00)
--- NOTE | 2018-01-10 17:26 | RADIOLOGY REPORT (SQ) ---
EXAM DESCRIPTION: CHEST SINGLE VIEW COMPLETED DATE/TIME: 01/10/2018 5:11 pm REASON FOR STUDY: shortness of breath COMPARISON: 12/02/2016 EXAM PARAMETERS: NUMBER OF VIEWS: One view. TECHNIQUE: Single frontal radiographic view of the chest acquired. RADIATION DOSE: NA LIMITATIONS: None. FINDINGS: LUNGS AND PLEURA: No acute opacities, masses or pneumothorax. No pleural effusion. MEDIASTINUM AND HILAR STRUCTURES: Stable. HEART AND VASCULAR STRUCTURES: Stable. BONES: No acute findings. HARDWARE: None in the chest. OTHER: No other significant finding. IMPRESSION: NO ACUTE RADIOGRAPHIC FINDING IN THE CHEST. TECHNICAL DOCUMENTATION: JOB ID: [id number] [id number] 2010 [employer]- All Rights Reserved Reading location - IP/workstation name: [email or web address]
--- NOTE | 2018-01-10 17:43 | PDOC H&P ---
History of Present Illness Admission Date/PCP: 01/10/18 15:49 JAMES ESCOBAR Patient complains of: L 4TH TOE PAIN History of Present Illness: MANNY GLOVER is a 72 year old female who presents to the emergency department with a six-month history of left 4TH toe pain. The patient states she decided to come to the emergency department because the toe pain has been aggravating her quite a bit and she wanted to get it checked out. The patient complains of an intermittent dull pain to the toe that is exacerbated upon ambulation. The patient denies recent trauma to the affected toe. She states the severity of her pain is only 2/5 and does not impede her ability to ambulate. PMH includes COPD on home O2, HTN, PVD, arthritis Upon arrival to the emergency department, an x-ray of her foot was performed, which was concerning for osteomyelitis involving the fourth distal phalanx. Orthopedics has been consulted by ER physician. MRI is currently pending. Upon evaluation, the L 4th toe appears erythematous and swollen. There is no evidence of an abscess or paronychia. The affected toe is tender to palpation. Of note, the patient has a great deal of cellulitis to her LLE (and RLE). Both lower extremities have patchy areas of erythema, there is obvious edema to both lower extremities. DP pulses are very faint, must use doppler to obtain PT pulses. She apparently battles with chronic cellulitis in her lower extremities and she has been admitted to [facility] for antibiotic treatment. The patient states that her legs look "worse than usual." The patient denies fever or chills, she states the only thing bothering her is her toe. Admit to Hospitalist service with Ortho consulting. Past Medical History Cardiac Medical History: Reports: Hypertension, Peripheral Vascular Disease, Heart Murmur Pulmonary Medical History: Reports: Chronic Obstructive Pulmonary Disease (COPD ) - HOME O2 Neurological Medical History: Denies: Migraine Endocrine Medical History: Denies: Diabetes Mellitus Type 2 Musculoskeltal Medical History: Reports: Arthritis Infectious Medical History: Denies: Methicillin-Resistant Staph Aureus Past Surgical History Past Surgical History: Reports: Orthopedic Surgery - L TIB/FIB FRACTURE REPAIR. skin graft to same area (2000) Social History Information Source: Patient Lives with: [facility] Smoking Status: Never Smoker Frequency of Alcohol Use: None Hx Recreational Drug Use: No Drugs: None Hx Prescription Drug Abuse: No - Advance Directive Resuscitation Status: Do Not Resuscitate Family History Family History: Arthritis, CAD, CVA, Hyperlipidemia, Hypertension Parental Family History Reviewed: Yes Children Family History Reviewed: Yes Sibling(s) Family History Reviewed.: Yes Medication/Allergy Home Medications: Acetaminophen [Tylenol 325 mg Tablet] 650 mg PO Q6HP PRN 01/10/18 Losartan Potassium [Cozaar 25 mg Tablet] 25 mg PO DAILY 01/10/18 Medroxyprogesterone Acetate [Provera] 2.5 mg PO DAILY 01/10/18 Allergies/Adverse Reactions: nut - unspecified Allergy (Verified 12/02/16 06:52) chocolate Allergy (Uncoded 12/02/16 06:52) wasp Allergy (Uncoded 12/02/16 06:52) Review of Systems All systems: reviewed and no additional remarkable complaints except as stated Physical Exam Vital Signs: Temp Pulse Resp BP Pulse Ox 98.4 F 98 20 138/96 H 95 01/10/18 16:28 01/10/18 13:15 01/10/18 13:20 01/10/18 13:15 01/10/18 13:15 General appearance: PRESENT: no acute distress, morbidly obese Eye exam: PRESENT: conjunctiva pink, PERRLA Mouth exam: PRESENT: moist Neck exam: PRESENT: full ROM Respiratory exam: PRESENT: clear to auscultation michelle, decreased breath sounds - AT LUNG BASES, symmetrical, tachypnea Cardiovascular exam: PRESENT: +S1, +S2, systolic murmur Pulses: PRESENT: normal radial pulses. ABSENT: normal dorsalis pedis pul Vascular exam: PRESENT: normal capillary refill GI/Abdominal exam: PRESENT: soft. ABSENT: tenderness Rectal exam: PRESENT: deferred Extremities exam: PRESENT: pedal edema, tenderness - LLE, +2 edema Musculoskeletal exam: PRESENT: ambulatory - PATIENT IS ABLE TO AMBULATE WITH CANE, deformity - LLE SKIN GRAFT (OLD), tenderness - LOWER EXTREMITIES. ABSENT : normal inspection Neurological exam: PRESENT: alert, awake, oriented to person, oriented to place , oriented to time, oriented to situation Psychiatric exam: PRESENT: appropriate affect Skin exam: PRESENT: dry, erythema - BILATERAL LOWER EXTREMITIES, warm Results Impressions: Foot X-Ray 01/10/18 13:58 IMPRESSION: Likely osteomyelitis involving the 4th distal phalanx. Status: Imported from PACS Assessment & Plan - Diagnosis (1) Osteomyelitis of toe of left foot Is this a current diagnosis for this admission?: Yes Plan: Patient presents to the emergency department for complaints of left 4th toe pain and swelling x 6 months X-ray left foot is concerning for osteomyelitis Ortho consulted, appreciate their recommendations Admit to Telemetry Initiated empiric antibiotic coverage with vancomycin for G+/MRSA coverage and ciprofloxacin for G-/pseudomonas coverage MRI left foot pending Blood cultures pending Patient currently afebrile and non-toxic appearing (2) COPD (chronic obstructive pulmonary disease) Qualifiers: COPD type: unspecified COPD Qualified Code(s): J44.9 - Chronic obstructive pulmonary disease, unspecified Is this a current diagnosis for this admission?: Yes Plan: Patient endorses a history of COPD requiring 2 L home O2. SPO2 upon arrival Previously admitted for hypercapnic respiratory distress The patient is not able to speak in full sentences. She appears to be mildly out of breath during prolonged conversation. Supplemental oxygen via nasal cannula to maintain SPO2 > 88 The patient denies using BIPAP at home ABG pending CXR pending (3) Bilateral lower leg cellulitis Is this a current diagnosis for this admission?: Yes Plan: Patient states she has a chronic history of lower extremity cellulitis. She has been treated multiple times at [facility] for this same complaint. The patient's lower extremities are erythematous, the patient states "they look worse than usual" Antibiotics listed above (4) Essential hypertension Is this a current diagnosis for this admission?: Yes Plan: Patient endorses history of hypertension. We will continue home dose losartan (5) Morbid obesity Is this a current diagnosis for this admission?: Yes Plan: Patient is morbidly obese. Exercise caution with dietary choices - limit soda, high fat, high sugar foods. We will consult cement kiln operator for recommendations - Time Time Spent: 30 to 50 Minutes Medications reviewed and adjusted accordingly: Yes Anticipated discharge: SNF - Inpatient Certification Based on my medical assessment, after consideration of the patient's comorbidities, presenting symptoms, or acuity I expect that the services needed warrant INPATIENT care.: Yes I certify that my determination is in accordance with my understanding of Medicare's requirements for reasonable and necessary INPATIENT services [42 CFR 412.3e].: Yes Medical Necessity: Need for IV Antibiotics, Risk of Complication if Not Cared For in Hospital - Plan Summary Plan Summary: Admit under inpatient status.
[2018-01-10 17:48] LABS: HEMATOCRIT 47.2 % (36.0-47.0); HEMOGLOBIN 15.1 g/dL (12.0-15.5); MEAN CORPUSCULAR HEMOGLOBIN 28.6 pg (27.0-33.4); MEAN CORPUSCULAR VOLUME 90 fl (80-97); PLATELET COUNT 226 10^3/uL (150-450); RED BLOOD COUNT 5.27 10^6/uL (3.72-5.28); RED CELL DISTRIBUTION WIDTH 15.1 % (11.5-14.0); WHITE BLOOD COUNT 21.4 10^3/uL (4.0-10.5)
[2018-01-10 17:56] LABS: ALANINE AMINOTRANSFERASE 36 U/L (9-52); ALBUMIN 3.2 g/dL (3.5-5.0); ALKALINE PHOSPHATASE 96 U/L (38-126); ANION GAP 10 (5-19); ASPARTATE AMINO TRANSFERASE 34 U/L (14-36); BILIRUBIN,DIRECT 0.5 mg/dL (0.0-0.4); BILIRUBIN,TOTAL 0.7 mg/dL (0.2-1.3); BLOOD UREA NITROGEN 19 mg/dL (7-20); CALCIUM 9.1 mg/dL (8.4-10.2); CARBON DIOXIDE 34 mmol/L (22-30); CHLORIDE 99 mmol/L (98-107); GLUCOSE 93 mg/dL (75-110); POTASSIUM 4.1 mmol/L (3.6-5.0); SODIUM 142.7 mmol/L (137-145)
[2018-01-10 18:19] LABS: ABSOLUTE LYMPHOCYTES# (MANUAL) 0.4 10^3/uL (0.5-4.7); BAND NEUTROPHILS % (MANUAL) 11 % (3-5); BASOPHILS % (MANUAL) 0 % (0-2); EOSINOPHILS % (MANUAL) 0 % (0-6); LYMPHOCYTES % (MANUAL) 2 % (13-45); MONOCYTES % (MANUAL) 0 % (3-13); SEGMENTED NEUTROPHILS % (MAN) 87 % (42-78); TOTAL CELLS COUNTED 100
[2018-01-10 18:20] LABS: ANISOCYTOSIS SLIGHT; PLATELET COMMENT ADEQUATE
[2018-01-10 18:23] LABS: POLYCHROMASIA SLIGHT
[2018-01-10 18:25] LABS: ERYTHROCYTE SEDIMENTATION RATE 54 mm/hr (0-30)
[2018-01-10] MEDS ORDERED: NORMAL SALINE 1000 ML 1,000 ML IV PRN (19:01)
[2018-01-10 19:18] LABS: APPEARANCE,URINE CLOUDY; BILIRUBIN,URINE NEGATIVE (NEGATIVE); COLOR,URINE YELLOW; GLUCOSE, URINE NEGATIVE (NEGATIVE); KETONES,URINE NEGATIVE (NEGATIVE); LEUKOCYTE ESTERASE,URINE SMALL (NEGATIVE); NITRITE,URINE NEGATIVE (NEGATIVE); PROTEIN,URINE NEGATIVE (NEGATIVE); URINE SPECIFIC GRAVITY 1.017; UROBILINOGEN,URINE NEGATIVE mg/dL (<2.0)
[2018-01-10 20:16] LABS: ARTERIAL BLOOD BASE EXCESS 6.1 mmol/L; ARTERIAL BLOOD H2CO3 1.82 mmol/L (1.05-1.35); ARTERIAL BLOOD HCO3 33.6 mmol/L (20-26); ARTERIAL BLOOD O2 SATURATION 97.1 % (94-98); ARTERIAL BLOOD PCO2 60.6 mmHg (35-45); ARTERIAL BLOOD PH 7.36 (7.35-7.45); ARTERIAL BLOOD PO2 98.3 mmHg (80-100); ARTERIAL BLOOD TOTAL CO2 35.5 mmol/L (21-25)
[2018-01-10 20:18] LABS: ARTERIAL BLOOD FIO2 ROOM AIR
[2018-01-10] MEDS ORDERED: VANCOMYCIN HCL 1,500 MG in DEXTROSE 5%-WATER 250 ML IV SCH (22:00)
[2018-01-10] MEDS: PIPERACILLIN SODIUM/TAZOBACTAM 3.375 GM in NORMAL SALINE 100 ML IV SCH (22:31)
[2018-01-10] MEDS: VANCOMYCIN HCL 1,000 MG in DEXTROSE 5%-WATER 250 ML IV SCH (22:33)
[2018-01-11] MEDS: PIPERACILLIN SODIUM/TAZOBACTAM 3.375 GM in NORMAL SALINE 100 ML IV SCH ×4 (03:04→21:10)
[2018-01-11 07:13] LABS: HEMATOCRIT 42.5 % (36.0-47.0); HEMOGLOBIN 13.9 g/dL (12.0-15.5); MEAN CORPUSCULAR HEMOGLOBIN 28.8 pg (27.0-33.4); MEAN CORPUSCULAR HGB CONC 32.7 g/dL (32.0-36.0); MEAN CORPUSCULAR VOLUME 88 fl (80-97); PLATELET COUNT 197 10^3/uL (150-450); RED BLOOD COUNT 4.82 10^6/uL (3.72-5.28); RED CELL DISTRIBUTION WIDTH 14.9 % (11.5-14.0)
[2018-01-11 07:26] LABS: ANION GAP 7 (5-19); BLOOD UREA NITROGEN 21 mg/dL (7-20); CALCIUM 8.4 mg/dL (8.4-10.2); CARBON DIOXIDE 32 mmol/L (22-30); CHLORIDE 101 mmol/L (98-107); GLUCOSE 88 mg/dL (75-110); PHOSPHORUS 3.5 mg/dL (2.5-4.5); POTASSIUM 4.2 mmol/L (3.6-5.0); SODIUM 139.5 mmol/L (137-145)
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
--- NOTE | 2018-01-11 08:16 | RADIOLOGY REPORT (SQ) ---
EXAM DESCRIPTION: MRI LT LOWER EXTREMITY WITHOUT COMPLETED DATE/TIME: 01/10/2018 6:37 pm REASON FOR STUDY: 4th digit osteomyolitis concern COMPARISON: RADIOGRAPH FROM 01/10/2018 TECHNIQUE: Short axis T1 and T2 weighted imaging of the left toes obtained. LIMITATIONS: Incomplete examination. FINDINGS: BONE MARROW: Bone marrow edema/ marrow in placement involving the distal phalanx 4th toe l eft foot with cortical breakthrough along its dorsal and lateral surface compatible with osteomyeliti s. There is surrounding soft tissue edema and possibly phlegmon. SOFT TISSUES: Marked dorsal soft tissue edema. No definite drainable fluid collection/abscess. OTHER: No other significant finding. IMPRESSION: SIGNIFICANTLY LIMITED EVALUATION OF THE LEFT FOOT HOWEVER THERE IS MR EVIDENCE OF OSTEOM YELITIS INVOLVING THE DISTAL PHALANX 4TH TOE LEFT FOOT SEEN ON RADIOGRAPHS. TECHNICAL DOCUMENTATION: JOB ID: [id number] [employer]- All Rights Reserved Reading location - IP/workstation name: [email or web address]
[2018-01-11] MEDS: LOSARTAN POTASSIUM 25 MG TABLET PO SCH (10:20)
[2018-01-11] MEDS: ENOXAPARIN SODIUM INJ 40 MG/0.4 ML DISP.SYRIN SUBCUT SCH (10:21)
[2018-01-11] MEDS: MEDROXYPROGESTERONE ACET 2.5 MG TABLET PO SCH (10:21)
[2018-01-11] MEDS: NYSTATIN TOPICAL POWDER 15 GM TP SCH ×2 (10:59→21:33)
[2018-01-11] MEDS: VANCOMYCIN HCL 1,000 MG in DEXTROSE 5%-WATER 250 ML IV SCH ×2 (11:22→21:35)
--- NOTE | 2018-01-11 16:59 | PDOC PROGRESS REPORT ---
Subjective Progress Note for:: 01/11/18 Subjective:: MANNY GLOVER is a 72 year old female who presents with a 6 month history of L 4th toe pain. XRAY concerning for osteomyelitis. MRI L foot suboptimal, but concerning for L osteomylitis in 4th distal phalynx. Ortho has been consulted, deemed nonoperative at this time. Of note, recurrent cellulitis also noted to the bilateral lower extremities. PMH includes COPD on home O2, HTN, PVD, arthritis. Patient seen this morning on rounds, she is resting quietly in bed on supplemental oxygen. She complains of mild pain to her 4th L toe. Erythema appears slightly improved. Cellulitis in the bilateral lower extremities remains unchanged. Reason For Visit: OSTEOMYELITIS Physical Exam Vital Signs: Temp Pulse Resp BP Pulse Ox 97.7 F 108 H 20 143/57 H 94 01/11/18 12:00 01/11/18 12:00 01/11/18 12:00 01/11/18 12:00 01/11/18 12:00 Intake & Output 01/10/18 01/11/18 01/12/18 06:59 06:59 06:59 Intake Total 800 Output Total 120 Balance 680 Weight 115.4 kg 115.4 kg General appearance: PRESENT: morbidly obese Eye exam: PRESENT: conjunctiva pink, PERRLA Mouth exam: PRESENT: moist Neck exam: PRESENT: full ROM Respiratory exam: PRESENT: clear to auscultation michelle, symmetrical, unlabored. ABSENT: tachypnea, wheezes Cardiovascular exam: PRESENT: +S1, +S2 Pulses: PRESENT: normal radial pulses, other - DOPPLER DP/PT PULSES IN L FOOT. ABSENT: normal dorsalis pedis pul GI/Abdominal exam: PRESENT: normal bowel sounds, soft. ABSENT: tenderness Rectal exam: PRESENT: deferred Extremities exam: PRESENT: pedal edema, +1 edema, other - BRIGHT RED ERYTHEMA TO BILATERAL LOWER EXTREMITIES, LEFT WORSE THAN RIGHT. ABSENT: full ROM Musculoskeletal exam: PRESENT: ambulatory - WITH WALKER. ABSENT: full ROM, normal inspection Neurological exam: PRESENT: alert, awake, oriented to person, oriented to place , oriented to time, oriented to situation Psychiatric exam: PRESENT: appropriate affect Results Laboratory Results: 01/11/18 05:58 01/11/18 05:58 01/10/18 01/10/18 01/10/18 17:19 17:19 17:19 WBC 21.4 H RBC 5.27 Hgb 15.1 Hct 47.2 H MCV 90 MCH 28.6 MCHC 32.0 RDW 15.1 H Plt Count 226 Seg Neutrophils % Not Reportable Lymphocytes % Not Reportable Monocytes % Not Reportable Eosinophils % Not Reportable Basophils % Not Reportable Absolute Neutrophils Not Reportable Absolute Lymphocytes Not Reportable Absolute Monocytes Not Reportable Absolute Eosinophils Not Reportable Absolute Basophils Not Reportable Carbonic Acid HCO3/H2CO3 Ratio ABG pH ABG pCO2 ABG pO2 ABG HCO3 ABG O2 Saturation ABG Base Excess FiO2 Sodium 142.7 Potassium 4.1 Chloride 99 Carbon Dioxide 34 H Anion Gap 10 BUN 19 Creatinine 0.59 Est GFR ( Amer) > 60 Est GFR (Non-Af Amer) > 60 Glucose 93 Lactic Acid 1.7 Calcium 9.1 Phosphorus Magnesium Total Bilirubin 0.7 AST 34 ALT 36 Alkaline Phosphatase 96 C-Reactive Protein 47.0 H Total Protein 7.0 Albumin 3.2 L Urine Color Urine Appearance Urine pH Ur Specific [place] Urine Protein Urine Glucose (UA) Urine Ketones Urine Blood Urine Nitrite Ur Leukocyte Esterase Urine WBC (Auto) Urine RBC (Auto) 01/10/18 01/10/18 01/11/18 18:45 19:05 05:58 WBC 24.0 H RBC 4.82 Hgb 13.9 Hct 42.5 MCV 88 MCH 28.8 MCHC 32.7 RDW 14.9 H Plt Count 197 Seg Neutrophils % Lymphocytes % Monocytes % Eosinophils % Basophils % Absolute Neutrophils Absolute Lymphocytes Absolute Monocytes Absolute Eosinophils Absolute Basophils Carbonic Acid 1.82 H HCO3/H2CO3 Ratio 18:1 ABG pH 7.36 ABG pCO2 60.6 H ABG pO2 98.3 ABG HCO3 33.6 H ABG O2 Saturation 97.1 ABG Base Excess 6.1 FiO2 ROOM AIR Sodium Potassium Chloride Carbon Dioxide Anion Gap BUN Creatinine Est GFR ( Amer) Est GFR (Non-Af Amer) Glucose Lactic Acid Calcium Phosphorus Magnesium Total Bilirubin AST ALT Alkaline Phosphatase C-Reactive Protein Total Protein Albumin Urine Color YELLOW Urine Appearance CLOUDY Urine pH 5.0 Ur Specific [place] 1.017 Urine Protein NEGATIVE Urine Glucose (UA) NEGATIVE Urine Ketones NEGATIVE Urine Blood LARGE H Urine Nitrite NEGATIVE Ur Leukocyte Esterase SMALL H Urine WBC (Auto) 4 Urine RBC (Auto) 25 01/11/18 05:58 WBC RBC Hgb Hct MCV MCH MCHC RDW Plt Count Seg Neutrophils % Lymphocytes % Monocytes % Eosinophils % Basophils % Absolute Neutrophils Absolute Lymphocytes Absolute Monocytes Absolute Eosinophils Absolute Basophils Carbonic Acid HCO3/H2CO3 Ratio ABG pH ABG pCO2 ABG pO2 ABG HCO3 ABG O2 Saturation ABG Base Excess FiO2 Sodium 139.5 Potassium 4.2 Chloride 101 Carbon Dioxide 32 H Anion Gap 7 BUN 21 H Creatinine 0.54 Est GFR ( Amer) > 60 Est GFR (Non-Af Amer) > 60 Glucose 88 Lactic Acid Calcium 8.4 Phosphorus 3.5 Magnesium 2.0 Total Bilirubin AST ALT Alkaline Phosphatase C-Reactive Protein Total Protein Albumin Urine Color Urine Appearance Urine pH Ur Specific [place] Urine Protein Urine Glucose (UA) Urine Ketones Urine Blood Urine Nitrite Ur Leukocyte Esterase Urine WBC (Auto) Urine RBC (Auto) 01/10/18 17:19 NT-Pro-B Natriuret Pep 984 H Impressions: Foot X-Ray 01/10/18 13:58 IMPRESSION: Likely osteomyelitis involving the 4th distal phalanx. Lower Extremity MRI 01/10/18 15:35 IMPRESSION: SIGNIFICANTLY LIMITED EVALUATION OF THE LEFT FOOT HOWEVER THERE IS MR EVIDENCE OF OSTEOMYELITIS INVOLVING THE DISTAL PHALANX 4TH TOE LEFT FOOT SEEN ON RADIOGRAPHS. Chest X-Ray 01/10/18 16:15 IMPRESSION: NO ACUTE RADIOGRAPHIC FINDING IN THE CHEST. Status: Imported from PACS Assessment & Plan - Diagnosis (1) Osteomyelitis of toe of left foot Is this a current diagnosis for this admission?: Yes Plan: Patient presents to the emergency department for complaints of left 4th toe pain and swelling x 6 months X-ray left foot is concerning for osteomyelitis Ortho consulted. Deemed nonoperative. Admit to Telemetry Initiated empiric antibiotic coverage with vancomycin for G+/MRSA coverage and Zosyn for G-/pseudomonas coverage MRI left foot suboptimal but concerning for osteomyelitis Blood cultures no growth to date Patient currently afebrile and non-toxic appearing Anticipate that this patient will likely require a PICC line and penitentiary antibiotics (2) COPD (chronic obstructive pulmonary disease) Qualifiers: COPD type: unspecified COPD Qualified Code(s): J44.9 - Chronic obstructive pulmonary disease, unspecified Is this a current diagnosis for this admission?: Yes Plan: Patient endorses a history of COPD requiring 2 L home O2. 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 She appears to be mildly out of breath during prolonged conversation. Supplemental oxygen via nasal cannula to maintain SPO2 > 88 The patient denies using BIPAP at home ABG shows hypercapnea - no evidence of acidosis. Not a surprising finding in a COPD patient CXR benign Initiate advair daily (3) Bilateral lower leg cellulitis Is this a current diagnosis for this admission?: Yes Plan: Patient states she has a chronic history of lower extremity cellulitis. She has been treated multiple times at [facility] for this same complaint. The patient's lower extremities are erythematous, the patient states "they look worse than usual" Antibiotics listed above Plan for arterial and venous doppler (4) Essential hypertension Is this a current diagnosis for this admission?: Yes Plan: Patient endorses history of hypertension. We will continue home dose losartan (5) Morbid obesity Is this a current diagnosis for this admission?: Yes Plan: Patient is morbidly obese. Exercise caution with dietary choices - limit soda, high fat, high sugar foods. We will consult potline monitor for recommendations - Time Time Spent with patient: 15-24 minutes Medications reviewed and adjusted accordingly: Yes Anticipated discharge: SNF - Inpatient Certification Based on my medical assessment, after consideration of the patient's comorbidities, presenting symptoms, or acuity I expect that the services needed warrant INPATIENT care.: Yes I certify that my determination is in accordance with my understanding of Medicare's requirements for reasonable and necessary INPATIENT services [42 CFR 412.3e].: Yes Medical Necessity: Need for IV Antibiotics, Risk of Complication if Not Cared For in Hospital - Plan Summary Plan Summary: CONTINUE IV ANTIBIOTICS, WILL LIKELY REQUIRE PICC LINE AND CLINICAL RESOURCE MANAGER 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
[2018-01-11] MEDS ORDERED: FLUTICASONE/SALMETEROL DISKUS 250-50 MCG/DOSE IH ONE (21:11)
[2018-01-11] MEDS: FLUTICASONE/SALMETEROL DISKUS 250-50 MCG/DOSE IH SCH (21:33)
[2018-01-12] MEDS: PIPERACILLIN SODIUM/TAZOBACTAM 3.375 GM in NORMAL SALINE 100 ML IV SCH ×4 (02:45→20:50)
--- NOTE | 2018-01-12 07:45 | PDOC PROGRESS REPORT ---
Subjective Progress Note for:: 01/12/18 Reason For Visit: OSTEOMYELITIS 72-year-old white female with bilateral lower extremity cellulitis and questionable infection of the left fourth toe Physical Exam Vital Signs: Temp Pulse Resp BP Pulse Ox 37.3 C 102 H 24 H 126/65 H 98 01/12/18 03:58 01/12/18 03:58 01/12/18 03:58 01/12/18 03:58 01/12/18 03:58 Intake & Output 01/11/18 01/12/18 01/13/18 06:59 06:59 06:59 Intake Total 800 4057 Output Total 120 400 Balance 680 3657 Weight 115.4 kg 116 kg Extremities exam: PRESENT: other - Musculoskeletal exam is unchanged from yesterday. Results Laboratory Results: 01/11/18 05:58 01/10/18 17:19 NT-Pro-B Natriuret Pep 984 H Impressions: Foot X-Ray 01/10/18 13:58 IMPRESSION: Likely osteomyelitis involving the 4th distal phalanx. Lower Extremity MRI 01/10/18 15:35 IMPRESSION: SIGNIFICANTLY LIMITED EVALUATION OF THE LEFT FOOT HOWEVER THERE IS MR EVIDENCE OF OSTEOMYELITIS INVOLVING THE DISTAL PHALANX 4TH TOE LEFT FOOT SEEN ON RADIOGRAPHS. Chest X-Ray 01/10/18 16:15 IMPRESSION: NO ACUTE RADIOGRAPHIC FINDING IN THE CHEST. Assessment & Plan - Diagnosis (1) Bilateral lower leg cellulitis Is this a current diagnosis for this admission?: Yes Plan: Continue IV antibiotics and observation. Mobilization with physical therapy
[2018-01-12 07:55] LABS: HEMATOCRIT 42.7 % (36.0-47.0); HEMOGLOBIN 13.7 g/dL (12.0-15.5); MEAN CORPUSCULAR HGB CONC 31.9 g/dL (32.0-36.0); MEAN CORPUSCULAR VOLUME 91 fl (80-97); WHITE BLOOD COUNT 28.5 10^3/uL (4.0-10.5)
[2018-01-12 08:25] LABS: PLATELET COUNT 188 10^3/uL (150-450)
[2018-01-12] MEDS ORDERED: IPRATROPIUM/ALBUTEROL 0.5-2.5 MG/3 ML AMPUL NEB PRN (10:09)
[2018-01-12 10:17] LABS: HEMATOCRIT 44.1 % (36.0-47.0); HEMOGLOBIN 13.9 g/dL (12.0-15.5); MEAN CORPUSCULAR HEMOGLOBIN 28.9 pg (27.0-33.4); MEAN CORPUSCULAR HGB CONC 31.6 g/dL (32.0-36.0); MEAN CORPUSCULAR VOLUME 92 fl (80-97); PLATELET COUNT 193 10^3/uL (150-450); RED BLOOD COUNT 4.81 10^6/uL (3.72-5.28); RED CELL DISTRIBUTION WIDTH 15.8 % (11.5-14.0); WHITE BLOOD COUNT 21.4 10^3/uL (4.0-10.5)
[2018-01-12 10:24] LABS: ARTERIAL BLOOD H2CO3 3.58 mmol/L (1.05-1.35); ARTERIAL BLOOD O2 SATURATION 93.3 % (94-98); ARTERIAL BLOOD PO2 92.1 mmHg (80-100); ARTERIAL BLOOD TOTAL CO2 41.6 mmol/L (21-25)
[2018-01-12 10:29] LABS: ANION GAP 5 (5-19); BLOOD UREA NITROGEN 23 mg/dL (7-20); CALCIUM 8.9 mg/dL (8.4-10.2); CARBON DIOXIDE 35 mmol/L (22-30); CHLORIDE 101 mmol/L (98-107); GLUCOSE 85 mg/dL (75-110); PHOSPHORUS 4.2 mg/dL (2.5-4.5); POTASSIUM 4.3 mmol/L (3.6-5.0)
[2018-01-12 10:39] LABS: VANCOMYCIN,TROUGH 10.9 ug/mL (5.0-20.0)
[2018-01-12 10:43] LABS: ARTERIAL BLOOD FIO2 2L
[2018-01-12 10:44] LABS: ARTERIAL BLOOD PCO2 118.9 mmHg (35-45); ARTERIAL BLOOD PH 7.12 (7.35-7.45)
[2018-01-12 11:06] LABS: CREATINE KINASE MB 1.78 ng/mL (<4.55); TROPONIN I 0.035 ng/mL
--- NOTE | 2018-01-12 11:32 | RADIOLOGY REPORT (SQ) ---
EXAM DESCRIPTION: CHEST SINGLE VIEW COMPLETED DATE/TIME: 01/12/2018 11:25 am REASON FOR STUDY: SOB COMPARISON: 01/10/2018 NUMBER OF VIEWS: One view. TECHNIQUE: Single frontal radiographic view of the chest acquired. LIMITATIONS: None. FINDINGS: LUNGS AND PLEURA: Interstitial edema with small to moderate left pleural effusion. MEDIASTINUM AND HILAR STRUCTURES: Stable in size and contour. HEART AND VASCULATURE: Cardiac enlargement. Vascular congestion. BONES: No acute findings. HARDWARE: None in the chest. OTHER: No other significant finding. IMPRESSION: PULMONARY EDEMA WITH LEFT PLEURAL EFFUSION. TECHNICAL DOCUMENTATION: JOB ID: [id number] [employer]- All Rights Reserved Reading location - IP/workstation name: [email or web address]
[2018-01-12] MEDS: ENOXAPARIN SODIUM INJ 40 MG/0.4 ML DISP.SYRIN SUBCUT SCH (11:43)
[2018-01-12 11:51] LABS: ALANINE AMINOTRANSFERASE 43 U/L (9-52); ALBUMIN 2.8 g/dL (3.5-5.0); ALKALINE PHOSPHATASE 98 U/L (38-126); ASPARTATE AMINO TRANSFERASE 41 U/L (14-36); BILIRUBIN,DIRECT 0.3 mg/dL (0.0-0.4); BILIRUBIN,TOTAL 0.3 mg/dL (0.2-1.3); TOTAL PROTEIN 6.5 g/dL (6.3-8.2)
[2018-01-12] MEDS ORDERED: DEXTROSE 50%-WATER 25 GM/50 ML DISP.SYRIN IV PRN ×2 (11:54)
[2018-01-12] MEDS ORDERED: DEXTROSE 40% GEL 15 GM TUBE PO PRN ×2 (11:54)
[2018-01-12] MEDS: NYSTATIN TOPICAL POWDER 15 GM TP SCH ×2 (11:54→22:06)
[2018-01-12] MEDS: LOSARTAN POTASSIUM 25 MG TABLET PO SCH (11:54)
[2018-01-12] MEDS: ZINC SULFATE 220 MG CAPSULE PO SCH (11:54)
[2018-01-12] MEDS: FERROUS SULFATE 325 MG TABLET PO SCH (11:54)
[2018-01-12] MEDS ORDERED: GLUCAGON,HUMAN RECOMB 1 MG INJ SUBCUT PRN (11:54)
[2018-01-12] MEDS: FLUTICASONE/SALMETEROL DISKUS 250-50 MCG/DOSE IH SCH ×2 (11:54→22:02)
[2018-01-12] MEDS: MEDROXYPROGESTERONE ACET 2.5 MG TABLET PO SCH (11:54)
[2018-01-12] MEDS: MULTIVITAMIN TABLET PO SCH (11:54)
[2018-01-12] MEDS ORDERED: FUROSEMIDE INJ/PF 40 MG/4 ML SDV ONE (12:19)
[2018-01-12] MEDS: VANCOMYCIN HCL 1,000 MG in DEXTROSE 5%-WATER 250 ML IV SCH (12:25)
[2018-01-12 12:43] LABS: ARTERIAL BLOOD BASE EXCESS 4.8 mmol/L; ARTERIAL BLOOD H2CO3 2.85 mmol/L (1.05-1.35); ARTERIAL BLOOD HCO3 36.2 mmol/L (20-26); ARTERIAL BLOOD O2 SATURATION 94.5 % (94-98); ARTERIAL BLOOD PO2 90.9 mmHg (80-100); ARTERIAL BLOOD TOTAL CO2 39.1 mmol/L (21-25)
[2018-01-12 12:58] LABS: ARTERIAL BLOOD FIO2 45%
[2018-01-12] MEDS ORDERED: PANTOPRAZOLE SODIUM 40 MG VIAL IV ONE (13:00)
[2018-01-12] MEDS ORDERED: FUROSEMIDE INJ/PF 40 MG/4 ML SDV IV ONE (13:00)
[2018-01-12 13:02] LABS: ARTERIAL BLOOD PCO2 94.7 mmHg (35-45)
--- NOTE | 2018-01-12 14:06 | RADIOLOGY REPORT (SQ) ---
EXAM DESCRIPTION: CTA CHEST COMPLETED DATE/TIME: 01/12/2018 1:19 pm REASON FOR STUDY: respiratory distress. elevated ddimer COMPARISON: Chest radiograph from 01/12/2018 and CTA chest from 09/23/2016. TECHNIQUE: CT scan of the chest performed using helical scanning technique with dynamic intravenous contrast injection. Images reviewed with lung, soft tissue and bone windows. Reconstructed coronal and sagittal MPR images reviewed. Additional 3 dimensional post-processing performed to develop Maximal Intensity Projection images (MD P). All images stored on PACS. All CT scanners at this facility use dose modulation, iterative reconstruction, and/or weight based d osing when appropriate to reduce radiation dose to as low as reasonably achievable (ALARA). [facility]: Dose Right [facility]: CareDose [facility]: Dose Right [facility]: Teradose 4D [facility]: ThousandEyes CONTRAST TYPE AND DOSE: contrast/concentration: Isovue 370.00 mg/ml; Total Contrast Delivered: 83.0 ml; Total Saline Delivered: 91.9 ml Contrast bolus optimized for the pulmonary arteries. Not diagnostic for the aorta. RENAL FUNCTION: GFR > 60. RADIATION DOSE: CT Rad equipment meets quality standard of care and radiation dose reduction techniq ues were employed. CTDIvol: 49.6 - 50.2 mGy. DLP: 1753 mGy-cm. . LIMITATIONS: None. FINDINGS: LUNGS AND PLEURA: Diffuse interstitial and alveolar opacities again noted again suggestive of pulmonary edema. Trace bilateral pleural effusions with associated dependent subsegmental atelec tasis. No pneumothorax. AORTA AND GREAT VESSELS: No aneurysm. Contrast bolus not optimized for the aorta. HEART: No pericardial effusion. No significant coronary artery calcifications. PULMONARY ARTERIES: No emboli visualized in the main pulmonary arteries or the segmental branches. HILAR AND MEDIASTINAL STRUCTURES: No identified masses or abnormal nodes. HARDWARE: None in the chest. UPPER ABDOMEN: No significant findings. Limited exam. THYROID AND OTHER SOFT TISSUES: No masses. No adenopathy. BONES: No acute or significant finding. 3D MIPS: Confirm above findings. OTHER: No other significant finding. IMPRESSION: UNREMARKABLE CTA CHEST WITHOUT PULMONARY EMBOLI. PRESUMED PULMONARY EDEMA WITH SMALL BILATERAL PLEURAL EFFUSIONS AND ASSOCIATED COMPRESSIVE ATELECTASI S. COMMENT: Quality ID # [id number]: Final reports with documentation of one or more dose reduction techniques (e.g., Automated exposure control, adjustment of the mA and/or kV according to patient size, use of iterative reconstruction technique) TECHNICAL DOCUMENTATION: JOB ID: [id number] [employer]- All Rights Reserved Reading location - IP/workstation name: [email or web address]
[2018-01-12 15:54] LABS: ARTERIAL BLOOD BASE EXCESS 4.6 mmol/L; ARTERIAL BLOOD H2CO3 2.65 mmol/L (1.05-1.35); ARTERIAL BLOOD HCO3 35.4 mmol/L (20-26); ARTERIAL BLOOD O2 SATURATION 90.5 % (94-98); ARTERIAL BLOOD PH 7.22 (7.35-7.45); ARTERIAL BLOOD PO2 72.4 mmHg (80-100); ARTERIAL BLOOD TOTAL CO2 38.1 mmol/L (21-25)
[2018-01-12 15:58] LABS: ARTERIAL BLOOD FIO2 35%
[2018-01-12 15:59] LABS: ARTERIAL BLOOD PCO2 88.2 mmHg (35-45)
--- NOTE | 2018-01-12 18:24 | PDOC PROGRESS REPORT ---
Subjective Progress Note for:: 01/12/18 Subjective:: MANNY GLOVER is a 72 year old female who presents with a 6 month history of L 4th toe pain. XRAY concerning for osteomyelitis. MRI L foot suboptimal, but concerning for L osteomylitis in 4th distal phalynx. Ortho has been consulted, deemed nonoperative at this time. Of note, recurrent cellulitis also noted to the bilateral lower extremities. PMH includes COPD on home O2, HTN, PVD, arthritis. Patient seen this morning on rounds, she is found resting in bed on nasal cannula. She is tachypneic, only able to speak a few words at a time. Her VS were stable, she was not hypoxic. STAT ABG demonstrates significant respiratory acidosis pH7.12 CO2 118 HCO3 38 pO292. Patient remains adamant that she does not want to be intubated so initiated BiPAP. CXR demonstrates volume overload. EKG shows NSR, no evidence of acute infarction or ischemia. Cardiac enzymes negative. Administered stat DuoNeb. D-dimer elevated > 7. CTA chest performed , negative for PE but demonstrated bilateral pulmonary effusions. Ford catheter inserted patient was diuresed with 40 mg Lasix. Upgraded to IMCU. Reason For Visit: OSTEOMYELITIS Physical Exam Vital Signs: Temp Pulse Resp BP Pulse Ox 99.2 F 80 16 126/65 H 100 01/12/18 03:58 01/12/18 14:00 01/12/18 14:05 01/12/18 03:58 01/12/18 14:05 Pulse Oximeter Continuous Start: 01/12/18 10: 24 Freq: RTQ4 Status: Active Document 01/12/18 11:40 [facility] (Rec: 01/12/18 15:16 [id number] Pulse Oximetry Assessment Oxygen Saturation (92-100) 96 Oxygen Delivery Method Bi-pap Fraction of Inspired Oxygen (FIO2) 45 Equipment Usage Equipment in Use Continuous SpO2 Machine # [id number] Intake & Output 01/11/18 01/12/18 01/13/18 06:59 06:59 06:59 Intake Total 800 4057 200 Output Total 120 400 Balance 680 3657 200 Weight 115.4 kg 116 kg General appearance: PRESENT: morbidly obese, severe distress Eye exam: PRESENT: conjunctiva pink, PERRLA Mouth exam: PRESENT: moist Neck exam: PRESENT: full ROM Respiratory exam: PRESENT: clear to auscultation michelle, symmetrical, unlabored Cardiovascular exam: PRESENT: +S1, +S2 Pulses: PRESENT: normal radial pulses, normal dorsalis pedis pul GI/Abdominal exam: PRESENT: normal bowel sounds, soft, tenderness Rectal exam: PRESENT: deferred Extremities exam: ABSENT: full ROM Musculoskeletal exam: PRESENT: ambulatory - with walker (per patient report, she has not been OOB since arrival). ABSENT: full ROM Neurological exam: PRESENT: alert, awake, oriented to person, oriented to place , oriented to time, oriented to situation Psychiatric exam: PRESENT: appropriate affect Skin exam: PRESENT: dry, intact, warm Results Laboratory Results: 01/12/18 09:50 01/12/18 09:50 01/12/18 01/12/18 01/12/18 07:22 09:06 09:50 WBC 28.5 H 21.4 H RBC 4.70 4.81 Hgb 13.7 13.9 Hct 42.7 44.1 MCV 91 92 MCH 29.0 28.9 MCHC 31.9 L 31.6 L RDW 16.0 H 15.8 H Plt Count 188 193 Carbonic Acid HCO3/H2CO3 Ratio ABG pH ABG pCO2 ABG pO2 ABG HCO3 ABG O2 Saturation ABG Base Excess FiO2 Sodium Cancelled Potassium Cancelled Chloride Cancelled Carbon Dioxide Cancelled Anion Gap Cancelled BUN Cancelled Creatinine Cancelled Est GFR ( Amer) Cancelled Est GFR (Non-Af Amer) Cancelled Glucose Cancelled Lactic Acid Calcium Cancelled Phosphorus Cancelled Magnesium Cancelled Total Bilirubin AST ALT Alkaline Phosphatase Total Protein Albumin 01/12/18 01/12/18 01/12/18 09:50 09:50 10:00 WBC RBC Hgb Hct MCV MCH MCHC RDW Plt Count Carbonic Acid HCO3/H2CO3 Ratio ABG pH ABG pCO2 ABG pO2 ABG HCO3 ABG O2 Saturation ABG Base Excess FiO2 Sodium 141.0 Potassium 4.3 Chloride 101 Carbon Dioxide 35 H Anion Gap 5 BUN 23 H Creatinine 0.64 Est GFR ( Amer) > 60 Est GFR (Non-Af Amer) > 60 Glucose 85 Lactic Acid 0.8 Calcium 8.9 Phosphorus 4.2 Magnesium 2.3 Total Bilirubin 0.3 AST 41 H ALT 43 Alkaline Phosphatase 98 Total Protein 6.5 Albumin 2.8 L 0601/12/18 01/12/18 10:15 12:20 15:41 WBC RBC Hgb Hct MCV MCH MCHC RDW Plt Count Carbonic Acid 3.58 H 2.85 H 2.65 H HCO3/H2CO3 Ratio 10:1 12:1 13:1 ABG pH 7.12 L* 7.20 L* 7.22 L ABG pCO2 118.9 H* 94.7 H* 88.2 H* ABG pO2 92.1 90.9 72.4 L ABG HCO3 38.0 H 36.2 H 35.4 H ABG O2 Saturation 93.3 L 94.5 90.5 L ABG Base Excess 4.0 4.8 4.6 FiO2 2L 45% 35% Sodium Potassium Chloride Carbon Dioxide Anion Gap BUN Creatinine Est GFR ( Amer) Est GFR (Non-Af Amer) Glucose Lactic Acid Calcium Phosphorus Magnesium Total Bilirubin AST ALT Alkaline Phosphatase Total Protein Albumin 01/10/18 01/12/18 01/12/18 17:19 09:50 09:50 Creatine Kinase 24 L CK-MB (CK-2) 1.78 Troponin I 0.035 NT-Pro-B Natriuret Pep 984 H Impressions: Foot X-Ray 01/10/18 13:58 IMPRESSION: Likely osteomyelitis involving the 4th distal phalanx. Lower Extremity MRI 01/10/18 15:35 IMPRESSION: SIGNIFICANTLY LIMITED EVALUATION OF THE LEFT FOOT HOWEVER THERE IS MR EVIDENCE OF OSTEOMYELITIS INVOLVING THE DISTAL PHALANX 4TH TOE LEFT FOOT SEEN ON RADIOGRAPHS. Chest X-Ray 01/12/18 00:00 IMPRESSION: PULMONARY EDEMA WITH LEFT PLEURAL EFFUSION. Chest/Abdomen CTA 01/12/18 00:00 IMPRESSION: UNREMARKABLE CTA CHEST WITHOUT PULMONARY EMBOLI. PRESUMED PULMONARY EDEMA WITH SMALL BILATERAL PLEURAL EFFUSIONS AND ASSOCIATED COMPRESSIVE ATELECTASIS. Status: Imported from PACS Assessment & Plan - Diagnosis (1) Osteomyelitis of toe of left foot Is this a current diagnosis for this admission?: Yes Plan: Patient presents to the emergency department for complaints of left 4th toe pain and swelling x 6 months X-ray left foot is concerning for osteomyelitis Ortho consulted. Deemed nonoperative. Admit to Telemetry Initiated empiric antibiotic coverage with vancomycin for G+/MRSA coverage and Zosyn for G-/pseudomonas coverage MRI left foot suboptimal but concerning for osteomyelitis Blood cultures no growth to date Patient currently afebrile and non-toxic appearing Wound culture obtained today, results pending Anticipate that this patient will likely require a PICC line and chcf antibiotics (2) Acute hypercapnic respiratory failure Is this a current diagnosis for this admission?: Yes Plan: Patient endorses a history of COPD requiring 2 L home O2. SPO2 upon arrival 98 % on @[facility] She admits that she does not see a cigar head piercer Previously admitted for hypercapnic respiratory distress The patient is not able to speak in full sentences. She is only able to speak a few words at a time. Currently on BIPAP SPO2 > 88% The patient denies using BIPAP at home ABG from today shows hypercapnic respiratory acidosis. Slight improvement with BIPAP setting adjustments, will continue to trend. Patient expressed multiple times she DOES NOT want to be intubated CXR today pulmonary edema and L pleural effusion CT chest from today demonstrates bilateral pleural effusions L>R Ford catheter placed, initiated lasix BID for pulmonary edema Initiate Duoneb q4hr and PRN xopenex Continue advair daily and intiate spiriva Double empiric antibiotic coverage applicable for osteomyelitis and respiratory disease (3) COPD (chronic obstructive pulmonary disease) Qualifiers: COPD type: unspecified COPD Qualified Code(s): J44.9 - Chronic obstructive pulmonary disease, unspecified Is this a current diagnosis for this admission?: Yes Plan: Plan as above (4) Bilateral lower leg cellulitis Is this a current diagnosis for this admission?: Yes Plan: RLE appears to be improving, no changes to LLE. Patient states she has a chronic history of lower extremity cellulitis. She has been treated multiple times at [facility] for this same complaint. The patient's lower extremities are erythematous, the patient states "they look worse than usual" Antibiotics listed above Plan for arterial and venous doppler on Saturday (5) Essential hypertension Is this a current diagnosis for this admission?: Yes Plan: Patient endorses history of hypertension. We will continue home dose losartan (6) Morbid obesity Is this a current diagnosis for this admission?: Yes Plan: Patient is morbidly obese. Exercise caution with dietary choices - limit soda, high fat, high sugar foods. We will consult swing saw operator for recommendations - Time Time Spent with patient: 15-24 minutes Medications reviewed and adjusted accordingly: Yes Anticipated discharge: Acute Rehab - Inpatient Certification Based on my medical assessment, after consideration of the patient's comorbidities, presenting symptoms, or acuity I expect that the services needed warrant INPATIENT care.: Yes I certify that my determination is in accordance with my understanding of Medicare's requirements for reasonable and necessary INPATIENT services [42 CFR 412.3e].: Yes Medical Necessity: Risk of Complication if Not Cared For in Hospital
[2018-01-12] MEDS ORDERED: FUROSEMIDE INJ/PF 20 MG/2 ML SDV IV ONE (22:00)
[2018-01-12] MEDS ORDERED: FUROSEMIDE INJ/PF 40 MG/4 ML SDV IV SCH (22:00)
[2018-01-12] MEDS: PANTOPRAZOLE SODIUM 40 MG VIAL IV SCH (22:01)
[2018-01-12] MEDS: VANCOMYCIN HCL 1,250 MG in DEXTROSE 5%-WATER 250 ML IV SCH (22:02)
--- NOTE | 2018-01-12 23:12 | EKG REPORT ---
SEVERITY:- ABNORMAL ECG - SINUS RHYTHM RIGHT ATRIAL ABNORMALITY : Confirmed by: Ugo Canas 12-Jan-2018 23:11:27
[2018-01-13] MEDS: PIPERACILLIN SODIUM/TAZOBACTAM 3.375 GM in NORMAL SALINE 100 ML IV SCH ×4 (03:49→21:32)
[2018-01-13 04:39] LABS: ARTERIAL BLOOD BASE EXCESS 10.9 mmol/L; ARTERIAL BLOOD FIO2 35%; ARTERIAL BLOOD H2CO3 2.84 mmol/L (1.05-1.35); ARTERIAL BLOOD O2 SATURATION 92.4 % (94-98); ARTERIAL BLOOD PH 7.27 (7.35-7.45); ARTERIAL BLOOD PO2 76.5 mmHg (80-100); ARTERIAL BLOOD TOTAL CO2 44.9 mmol/L (21-25)
[2018-01-13 04:41] LABS: ARTERIAL BLOOD PCO2 94.4 mmHg (35-45)
[2018-01-13 07:19] LABS: ARTERIAL BLOOD BASE EXCESS 9.8 mmol/L; ARTERIAL BLOOD H2CO3 2.49 mmol/L (1.05-1.35); ARTERIAL BLOOD HCO3 39.7 mmol/L (20-26); ARTERIAL BLOOD O2 SATURATION 95.7 % (94-98); ARTERIAL BLOOD PO2 91.4 mmHg (80-100); ARTERIAL BLOOD TOTAL CO2 42.3 mmol/L (21-25)
[2018-01-13 07:21] LABS: ARTERIAL BLOOD PCO2 82.8 mmHg (35-45)
[2018-01-13 07:22] LABS: ARTERIAL BLOOD FIO2 35%
[2018-01-13 07:26] LABS: HEMATOCRIT 40.2 % (36.0-47.0); HEMOGLOBIN 13.1 g/dL (12.0-15.5); MEAN CORPUSCULAR HEMOGLOBIN 29.1 pg (27.0-33.4); MEAN CORPUSCULAR HGB CONC 32.5 g/dL (32.0-36.0); MEAN CORPUSCULAR VOLUME 89 fl (80-97); PLATELET COUNT 157 10^3/uL (150-450); RED CELL DISTRIBUTION WIDTH 15.2 % (11.5-14.0)
[2018-01-13 07:28] LABS: ALANINE AMINOTRANSFERASE 42 U/L (9-52); ALBUMIN 2.5 g/dL (3.5-5.0); ALKALINE PHOSPHATASE 90 U/L (38-126); ANION GAP 6 (5-19); ASPARTATE AMINO TRANSFERASE 27 U/L (14-36); BILIRUBIN,DIRECT 0.4 mg/dL (0.0-0.4); BILIRUBIN,TOTAL 0.4 mg/dL (0.2-1.3); BLOOD UREA NITROGEN 25 mg/dL (7-20); CALCIUM 8.8 mg/dL (8.4-10.2); CARBON DIOXIDE 37 mmol/L (22-30); CHLORIDE 98 mmol/L (98-107); GLUCOSE 83 mg/dL (75-110); POTASSIUM 3.4 mmol/L (3.6-5.0); SODIUM 141.3 mmol/L (137-145)
[2018-01-13 08:16] LABS: ABSOLUTE MONOCYTES # (MANUAL) 0.2 10^3/uL (0.1-1.4); ABSOLUTE NEUTROPHILS# (MANUAL) 15.8 10^3/uL (1.7-8.2); BAND NEUTROPHILS % (MANUAL) 4 % (3-5); BASOPHILS % (MANUAL) 0 % (0-2); EOSINOPHILS % (MANUAL) 0 % (0-6); HYPOCHROMASIA SLIGHT; LYMPHOCYTES % (MANUAL) 0 % (13-45); MONOCYTES % (MANUAL) 1 % (3-13); PLATELET COMMENT ADEQUATE; POLYCHROMASIA SLIGHT; SEGMENTED NEUTROPHILS % (MAN) 95 % (42-78); TOTAL CELLS COUNTED 100; TOXIC GRANULATION SLIGHT; TOXIC VACUOLATION PRESENT
[2018-01-13] MEDS ORDERED: FUROSEMIDE INJ/PF 40 MG/4 ML SDV IV SCH (10:00)
[2018-01-13] MEDS: VANCOMYCIN HCL 1,250 MG in DEXTROSE 5%-WATER 250 ML IV SCH ×2 (10:34→23:00)
[2018-01-13] MEDS: PANTOPRAZOLE SODIUM 40 MG VIAL IV SCH ×2 (10:34→21:30)
[2018-01-13] MEDS: ENOXAPARIN SODIUM INJ 40 MG/0.4 ML DISP.SYRIN SUBCUT SCH (10:35)
[2018-01-13] MEDS: FUROSEMIDE INJ/PF 20 MG/2 ML SDV IV SCH ×2 (10:35→21:31)
[2018-01-13] MEDS: TIOTROPIUM BROMIDE DPI 5 CAP/KIT (18 MCG/CAP) IH SCH (10:35)
[2018-01-13] MEDS: MEDROXYPROGESTERONE ACET 2.5 MG TABLET PO SCH (10:35)
[2018-01-13] MEDS: MULTIVITAMIN TABLET PO SCH (10:36)
[2018-01-13] MEDS: FERROUS SULFATE 325 MG TABLET PO SCH (10:36)
[2018-01-13] MEDS: LOSARTAN POTASSIUM 25 MG TABLET PO SCH (10:36)
[2018-01-13] MEDS: ZINC SULFATE 220 MG CAPSULE PO SCH (10:36)
[2018-01-13] MEDS: NYSTATIN TOPICAL POWDER 15 GM TP SCH ×2 (10:36→21:32)
[2018-01-13] MEDS: FLUTICASONE/SALMETEROL DISKUS 250-50 MCG/DOSE IH SCH ×2 (10:37→21:30)
[2018-01-13] MEDS ORDERED: MORPHINE SULFATE 10 MG/ML INJ IV ONE (10:57)
[2018-01-13] MEDS ORDERED: POTASSI CL 20 MEQ/50 ML RIDER 20 MEQ/50 ML RTUPB IV ONE (14:30)
[2018-01-13] MEDS ORDERED: POTASSIUM CHLORIDE 10 MEQ TABLET.SA PO ONE (15:00)
--- NOTE | 2018-01-13 15:46 | XCELERA REPORT ---
[address] [address] Lower Extremity Venous Evaluation Name: MANNY GLOVER Age: 72 yrs Gender: Female : 1945 Patient Status: Inpatient Patient Location: [address] [place] [address] Study Date: 01/13/2018 10:41 AM Procedure: Color flow and duplex imaging bilaterally of the veins of the lower extremities as well as the Common Femoral veins. Reason For Study: bilateral lower extremity swelling and erythema Ordering Physician: CAROL KRAUSE Performed By: Cristel Lizarraga Right Sided Venous Evaluation Normal vessel filling wall to wall, compression and augmentation as well as Colour flow down to the infrageniculate veins. Left Sided Venous Evaluation Considerable subcutaneous edema on ultrasound. Normal vessel filling wall to wall, compression and augmentation as well as Colour flow down to the infrageniculate veins. Interpretation Summary No duplex evidence of DVT or obstruction in the bilateral lower extremities. : CAROL KRAUSE > Asher Worthy
--- NOTE | 2018-01-13 16:35 | PDOC PROGRESS REPORT ---
Subjective Progress Note for:: 01/13/18 Subjective:: MANNY GLOVER is a 72 year old female who presents with a 6 month history of L 4th toe pain. XRAY concerning for osteomyelitis. MRI L foot suboptimal, but concerning for L osteomylitis in 4th distal phalynx. Ortho has been consulted, deemed nonoperative at this time. Of note, recurrent cellulitis also noted to the bilateral lower extremities. PMH includes COPD on home O2, HTN, PVD, arthritis. Patient seen this morning on rounds, she is found resting in bed on BiPAP. She appears comfortable, is able to answer all questions appropriately. Her lung sounds are clear to auscultation although she is tachypneic with a RR 25-30. ABG this morning still shows hypercapnic respiratory acidosis, no plans to take the patient off of BiPAP at this time. The cellulitis in both of her legs is improving, right more so than the left, albeit very slowly. Her skin still appears very erythematous, but there is slight improvement, and the edema in both extremities has decreased. Her L fourth toe still appears erythematous and swollen, +TTP. Reason For Visit: OSTEOMYELITIS Physical Exam Vital Signs: Temp Pulse Resp BP Pulse Ox 97.6 F 78 20 130/50 H 94 01/13/18 11:56 01/13/18 15:19 01/13/18 13:32 01/13/18 11:56 01/13/18 13:32 Pulse Oximeter Continuous Start: 01/12/18 10: 24 Freq: RTQ4 Status: Active Document 01/13/18 13:32 J (Rec: 01/13/18 13:33 J [email or web address]) Pulse Oximetry Assessment Oxygen Saturation (92-100) 94 Oxygen Delivery Method Bi-pap Fraction of Inspired Oxygen (FIO2) 30 Equipment Usage Equipment in Use Continuous SpO2 Machine # 7 Intake & Output 01/12/18 01/13/18 01/14/18 06:59 06:59 06:59 Intake Total 4057 230 Output Total 400 3300 Balance 3657 -3070 Weight 116 kg 115.8 kg General appearance: PRESENT: mild distress, morbidly obese Eye exam: PRESENT: conjunctiva pink, PERRLA Mouth exam: PRESENT: dry mucosa, moist Neck exam: PRESENT: full ROM Respiratory exam: PRESENT: clear to auscultation michelle, symmetrical, tachypnea, unlabored Cardiovascular exam: PRESENT: +S1, +S2 Pulses: PRESENT: normal radial pulses. ABSENT: normal dorsalis pedis pul - BILATERAL DP/PT PULSES NEED TO BE DOPPLERED Vascular exam: PRESENT: normal capillary refill GI/Abdominal exam: PRESENT: normal bowel sounds, soft. ABSENT: tenderness Rectal exam: PRESENT: deferred Extremities exam: PRESENT: full ROM, pedal edema Musculoskeletal exam: PRESENT: ambulatory - PER PATIENT REPORT, SHE AMBULATES WITH CANE, full ROM Neurological exam: PRESENT: awake, oriented to person, oriented to place, oriented to time, oriented to situation Psychiatric exam: PRESENT: appropriate affect Skin exam: PRESENT: dry, erythema - BILATERAL LOWER EXTREMITIES, warm. ABSENT: intact Results Laboratory Results: 01/13/18 06:50 01/13/18 06:50 01/13/18 01/13/18 01/13/18 04:27 06:32 06:50 WBC 16.0 H RBC 4.50 Hgb 13.1 Hct 40.2 MCV 89 MCH 29.1 MCHC 32.5 RDW 15.2 H Plt Count 157 Seg Neutrophils % Not Reportable Lymphocytes % Not Reportable Monocytes % Not Reportable Eosinophils % Not Reportable Basophils % Not Reportable Absolute Neutrophils Not Reportable Absolute Lymphocytes Not Reportable Absolute Monocytes Not Reportable Absolute Eosinophils Not Reportable Absolute Basophils Not Reportable Carbonic Acid 2.84 H 2.49 H HCO3/H2CO3 Ratio 14:1 15:1 ABG pH 7.27 L 7.30 L ABG pCO2 94.4 H* 82.8 H* ABG pO2 76.5 L 91.4 ABG HCO3 42.0 H 39.7 H ABG O2 Saturation 92.4 L 95.7 ABG Base Excess 10.9 9.8 FiO2 35% 35% Sodium Potassium Chloride Carbon Dioxide Anion Gap BUN Creatinine Est GFR ( Amer) Est GFR (Non-Af Amer) Glucose Calcium Total Bilirubin AST ALT Alkaline Phosphatase Total Protein Albumin 01/13/18 06:50 WBC RBC Hgb Hct MCV MCH MCHC RDW Plt Count Seg Neutrophils % Lymphocytes % Monocytes % Eosinophils % Basophils % Absolute Neutrophils Absolute Lymphocytes Absolute Monocytes Absolute Eosinophils Absolute Basophils Carbonic Acid HCO3/H2CO3 Ratio ABG pH ABG pCO2 ABG pO2 ABG HCO3 ABG O2 Saturation ABG Base Excess FiO2 Sodium 141.3 Potassium 3.4 L Chloride 98 Carbon Dioxide 37 H Anion Gap 6 BUN 25 H Creatinine 0.68 Est GFR ( Amer) > 60 Est GFR (Non-Af Amer) > 60 Glucose 83 Calcium 8.8 Total Bilirubin 0.4 AST 27 ALT 42 Alkaline Phosphatase 90 Total Protein 6.0 L Albumin 2.5 L 01/10/18 01/12/18 01/12/18 17:19 09:50 09:50 Creatine Kinase 24 L CK-MB (CK-2) 1.78 Troponin I 0.035 NT-Pro-B Natriuret Pep 984 H 01/13/18 06:50 Creatine Kinase CK-MB (CK-2) Troponin I NT-Pro-B Natriuret Pep 1060 H Impressions: Foot X-Ray 01/10/18 13:58 IMPRESSION: Likely osteomyelitis involving the 4th distal phalanx. Lower Extremity MRI 01/10/18 15:35 IMPRESSION: SIGNIFICANTLY LIMITED EVALUATION OF THE LEFT FOOT HOWEVER THERE IS MR EVIDENCE OF OSTEOMYELITIS INVOLVING THE DISTAL PHALANX 4TH TOE LEFT FOOT SEEN ON RADIOGRAPHS. Chest X-Ray 01/12/18 00:00 IMPRESSION: PULMONARY EDEMA WITH LEFT PLEURAL EFFUSION. Chest/Abdomen CTA 01/12/18 00:00 IMPRESSION: UNREMARKABLE CTA CHEST WITHOUT PULMONARY EMBOLI. PRESUMED PULMONARY EDEMA WITH SMALL BILATERAL PLEURAL EFFUSIONS AND ASSOCIATED COMPRESSIVE ATELECTASIS. Status: Imported from PACS Assessment & Plan - Diagnosis (1) Acute hypercapnic respiratory failure Is this a current diagnosis for this admission?: Yes Plan: Patient endorses a history of COPD requiring 2 L home O2. SPO2 upon arrival 98 % on @[facility] She admits that she does not see a vice president payment Previously admitted for hypercapnic respiratory distress The patient is not able to speak in full sentences. She is only able to speak a few words at a time. Currently on BIPAP to maintain SPO2 > 88% The patient denies using BIPAP at home ABG from today shows hypercapnic respiratory acidosis. Slight improvement with BIPAP setting adjustments, will continue to trend. Current setting 20/8 FiO2 30% Patient expressed multiple times she DOES NOT want to be intubated CXR yesterday pulmonary edema and L pleural effusion CT chest yesterday demonstrates bilateral pleural effusions L>R, no evidence of PE Ford catheter placed, initiated lasix BID for pulmonary edema Continue Duoneb q4hr and PRN xopenex Continue advair daily and spiriva Double empiric antibiotic coverage applicable for osteomyelitis and respiratory disease (2) Osteomyelitis of toe of left foot Is this a current diagnosis for this admission?: Yes Plan: Patient presents to the emergency department for complaints of left 4th toe pain and swelling x 6 months X-ray left foot is concerning for osteomyelitis Ortho consulted. Deemed nonoperative. Initiated empiric antibiotic coverage with vancomycin for G+/MRSA coverage and Zosyn for G-/pseudomonas coverage MRI left foot suboptimal but concerning for osteomyelitis Blood cultures no growth to date Patient currently afebrile, leukocytosis improving (WBC 24 ->16) Wound culture obtained, results pending Anticipate that this patient will likely require a PICC line and rn long term care antibiotics (3) COPD (chronic obstructive pulmonary disease) Qualifiers: COPD type: unspecified COPD Qualified Code(s): J44.9 - Chronic obstructive pulmonary disease, unspecified Is this a current diagnosis for this admission?: Yes Plan: Plan as above (4) Bilateral lower leg cellulitis Is this a current diagnosis for this admission?: Yes Plan: Improving. RLE improving more so than LLE. Patient states she has a chronic history of lower extremity cellulitis. She has been treated multiple times at [facility] for this same complaint. The patient's lower extremities are erythematous, the patient states "they look worse than usual" Antibiotics listed above Arterial and venous Doppler completed. Venous Doppler normal, no evidence of DVT. Arterial Doppler results pending. (5) Essential hypertension Is this a current diagnosis for this admission?: Yes Plan: Patient endorses history of hypertension. We will continue home dose losartan (6) Morbid obesity Is this a current diagnosis for this admission?: Yes Plan: Patient is morbidly obese. Currently n.p.o. except for meds while on BiPAP We will consult cold header for recommendations once patient resumes eating. - Time Time Spent with patient: 15-24 minutes Medications reviewed and adjusted accordingly: Yes Anticipated discharge: SNF - Inpatient Certification Based on my medical assessment, after consideration of the patient's comorbidities, presenting symptoms, or acuity I expect that the services needed warrant INPATIENT care.: Yes I certify that my determination is in accordance with my understanding of Medicare's requirements for reasonable and necessary INPATIENT services [42 CFR 412.3e].: Yes Medical Necessity: Need Close Monitoring Due to Risk of Patient Decompensation, Need for Nebulizer Therapy and Monitoring of Response, Need for IV Antibiotics - Plan Summary Plan Summary: Continue BiPAP therapy. Patient will require PICC line placement and long-term antibiotic coverage for osteomyelitis.
[2018-01-14] MEDS: PIPERACILLIN SODIUM/TAZOBACTAM 3.375 GM in NORMAL SALINE 100 ML IV SCH ×4 (02:37→21:34)
[2018-01-14 07:17] LABS: HEMATOCRIT 39.4 % (36.0-47.0); HEMOGLOBIN 12.7 g/dL (12.0-15.5); MEAN CORPUSCULAR HEMOGLOBIN 28.7 pg (27.0-33.4); MEAN CORPUSCULAR HGB CONC 32.3 g/dL (32.0-36.0); MEAN CORPUSCULAR VOLUME 89 fl (80-97); PLATELET COUNT 157 10^3/uL (150-450); RED BLOOD COUNT 4.44 10^6/uL (3.72-5.28); RED CELL DISTRIBUTION WIDTH 15.3 % (11.5-14.0)
[2018-01-14 07:32] LABS: ALANINE AMINOTRANSFERASE 37 U/L (9-52); ALBUMIN 2.4 g/dL (3.5-5.0); ALKALINE PHOSPHATASE 106 U/L (38-126); ASPARTATE AMINO TRANSFERASE 18 U/L (14-36); BILIRUBIN,DIRECT 0.4 mg/dL (0.0-0.4); BILIRUBIN,TOTAL 0.4 mg/dL (0.2-1.3); BLOOD UREA NITROGEN 22 mg/dL (7-20); CALCIUM 8.6 mg/dL (8.4-10.2); CHLORIDE 95 mmol/L (98-107); GLUCOSE 97 mg/dL (75-110); SODIUM 142.5 mmol/L (137-145); TOTAL PROTEIN 5.9 g/dL (6.3-8.2)
[2018-01-14 07:49] LABS: ANION GAP 8 (5-19)
[2018-01-14 07:57] LABS: CARBON DIOXIDE 40 mmol/L (22-30)
[2018-01-14 08:10] LABS: ABSOLUTE LYMPHOCYTES# (MANUAL) 0.3 10^3/uL (0.5-4.7); ABSOLUTE MONOCYTES # (MANUAL) 0.4 10^3/uL (0.1-1.4); ABSOLUTE NEUTROPHILS# (MANUAL) 12.2 10^3/uL (1.7-8.2); ANISOCYTOSIS SLIGHT; BAND NEUTROPHILS % (MANUAL) 6 % (3-5); BASOPHILS % (MANUAL) 0 % (0-2); EOSINOPHILS % (MANUAL) 1 % (0-6); LYMPHOCYTES % (MANUAL) 2 % (13-45); MONOCYTES % (MANUAL) 3 % (3-13); PLATELET COMMENT ADEQUATE; SEGMENTED NEUTROPHILS % (MAN) 88 % (42-78); TOTAL CELLS COUNTED 100; TOXIC GRANULATION SLIGHT; TOXIC VACUOLATION PRESENT
--- NOTE | 2018-01-14 08:26 | XCELERA REPORT ---
[address] [address] Lower Extremity Arterial Evaluation Name: MANNY GLOVER Age: 72 yrs Gender: Female : 1945 Patient Status: Inpatient Patient Location: [address] [place] [address] Study Date: 01/13/2018 11:00 AM Procedure: A color flow and duplex scan of the lower extremity arteries was performed bilaterally with velocity and waveform anaylsis. Reason For Study: B/L LE swelling, poor peripheral perfusion Ordering Physician: CAROL KRAUSE Performed By: Cristel Lizarraga Measurements and Calculations Right Left SET UP MOLD TECHNICIAN PSV 118.8 161.1 cm/sec Prox PFA PSV 60.1 46.8 cm/sec Prox SFA PSV 153.2 128.1 cm/sec Mid SFA PSV 129.9 98.2 cm/sec Dist SFA PSV -122.2 -97.6 cm/sec Prox Pop A PSV 96.3 130.4 cm/sec Dist ALEX PSV 52.8 77.0 cm/sec Dist TREAD BOOKER PSV 69.5 72.3 cm/sec Julio Pedis PSV 58.8 80.5 cm/sec Right Side Arterial Evaluation Normal velocity and triphasic waveforms noted in the Common Femoral. Biphasic with normal velocity, considerable spectral broadening, artery to the infrageniculate vessels. 20-49 % stenosis at the Femoral artery. Ankle Brachial index was not done due to swelling, pain.. Left Side Arterial Evaluation Normal velocity and biphasic waveforms with distal spectral broadening noted from the Common Femoral artery to the infrageniculate vessels. 20-49 % stenosis at the Aorto Iliac inflow. Ankle Brachial index was not done due to swelling, pain.. Interpretation Summary Moderate hemodynamically significant lesions in the bilateral lower extremities, on duplex imaging, at rest. : CAROL KRAUSE > Asher Worthy
--- NOTE | 2018-01-14 09:01 | RADIOLOGY REPORT (SQ) ---
EXAM DESCRIPTION: CHEST SINGLE VIEW COMPLETED DATE/TIME: 01/14/2018 8:41 am REASON FOR STUDY: dyspnea and hypoxia COMPARISON: 01/12/2018 EXAM PARAMETERS: NUMBER OF VIEWS: One view. TECHNIQUE: Single frontal radiographic view of the chest acquired. RADIATION DOSE: NA LIMITATIONS: None. FINDINGS: LUNGS AND PLEURA: Lungs essentially clear with resolution of the recent pulmonary edema an d left pleural effusion. MEDIASTINUM AND HILAR STRUCTURES: No masses. Contour normal. HEART AND VASCULAR STRUCTURES: Heart normal in size. Normal vasculature. BONES: No acute findings. HARDWARE: None in the chest. OTHER: No other significant finding. IMPRESSION: Lungs currently clear. TECHNICAL DOCUMENTATION: JOB ID: [id number] [employer]- All Rights Reserved Reading location - IP/workstation name: [email or web address]
[2018-01-14 09:15] LABS: ARTERIAL BLOOD BASE EXCESS 15.2 mmol/L; ARTERIAL BLOOD H2CO3 1.81 mmol/L (1.05-1.35); ARTERIAL BLOOD O2 SATURATION 94.9 % (94-98); ARTERIAL BLOOD PCO2 60.2 mmHg (35-45); ARTERIAL BLOOD PH 7.46 (7.35-7.45); ARTERIAL BLOOD PO2 72.6 mmHg (80-100); ARTERIAL BLOOD TOTAL CO2 43.8 mmol/L (21-25)
[2018-01-14 09:25] LABS: ARTERIAL BLOOD FIO2 30%
[2018-01-14] MEDS: FLUTICASONE/SALMETEROL DISKUS 250-50 MCG/DOSE IH SCH ×2 (10:08→21:34)
[2018-01-14] MEDS: ZINC SULFATE 220 MG CAPSULE PO SCH (10:08)
[2018-01-14] MEDS: VANCOMYCIN HCL 1,250 MG in DEXTROSE 5%-WATER 250 ML IV SCH (10:09)
[2018-01-14] MEDS: FERROUS SULFATE 325 MG TABLET PO SCH (10:09)
[2018-01-14] MEDS: LOSARTAN POTASSIUM 25 MG TABLET PO SCH (10:09)
[2018-01-14] MEDS: MULTIVITAMIN TABLET PO SCH (10:09)
[2018-01-14] MEDS: PANTOPRAZOLE SODIUM 40 MG VIAL IV SCH ×2 (10:10→21:44)
[2018-01-14] MEDS: TIOTROPIUM BROMIDE DPI 5 CAP/KIT (18 MCG/CAP) IH SCH (10:10)
[2018-01-14] MEDS: ENOXAPARIN SODIUM INJ 40 MG/0.4 ML DISP.SYRIN SUBCUT SCH (10:11)
[2018-01-14] MEDS: MEDROXYPROGESTERONE ACET 2.5 MG TABLET PO SCH (10:11)
[2018-01-14] MEDS: NYSTATIN TOPICAL POWDER 15 GM TP SCH ×2 (10:11→21:36)
[2018-01-14 10:43] LABS: VANCOMYCIN,TROUGH 23.7 ug/mL (5.0-20.0)
[2018-01-14] MEDS: POTASSI CL 20 MEQ/50 ML RIDER 20 MEQ/50 ML RTUPB IV SCH ×3 (12:18→19:09)
[2018-01-14] MEDS ORDERED: LORAZEPAM 0.5 MG TABLET PO PRN (13:04)
[2018-01-14] MEDS ORDERED: IPRATROPIUM/ALBUTEROL 0.5-2.5 MG/3 ML AMPUL NEB PRN (13:25)
--- NOTE | 2018-01-14 13:44 | PDOC CONSULTATION ---
Consultation Consult Date: 01/14/18 Attending physician:: ARPITA HAGEN Consult reason:: CHF History of Present Illness Admission Date/PCP: 01/10/18 15:49 JAMES ESCOBAR Patient complains of: Shortness of breath and bilateral leg edema History of Present Illness: MANNY GLOVER is a 72 year old female who presents to the emergency department with a six-month history of left 4TH toe pain. The patient states she decided to come to the emergency department because the toe pain has been aggravating her quite a bit and she wanted to get it checked out. The patient complains of an intermittent dull pain to the toe that is exacerbated upon ambulation. The patient denies recent trauma to the affected toe. She states the severity of her pain is only 2/5 and does not impede her ability to ambulate. PMH includes COPD on home O2, HTN, PVD, arthritis Upon arrival to the emergency department, an x-ray of her foot was performed, which was concerning for osteomyelitis involving the fourth distal phalanx. Orthopedics has been consulted by ER physician. MRI is currently pending. Upon evaluation, the L 4th toe appears erythematous and swollen. There is no evidence of an abscess or paronychia. The affected toe is tender to palpation. Of note, the patient has a great deal of cellulitis to her LLE (and RLE). Both lower extremities have patchy areas of erythema, there is obvious edema to both lower extremities. DP pulses are very faint, must use doppler to obtain PT pulses. She apparently battles with chronic cellulitis in her lower extremities and she has been admitted to [facility] for antibiotic treatment. The patient states that her legs look "worse than usual." The patient denies fever or chills, she states the only thing bothering her is her toe. Admit to Hospitalist service with Ortho consulting. This history obtained by the hospitalist was reviewed and confirmed with the patient. Patient did admit to having limited mobility. Her leg edema is rather chronic. Patient however denied any prior history of myocardial infarction, angina or any definitive diagnosis of CHF. She does tells me that she has history of chronic heart murmur. Past Medical History Cardiac Medical History: Reports: Hypertension, Peripheral Vascular Disease, Heart Murmur Pulmonary Medical History: Reports: Chronic Obstructive Pulmonary Disease (COPD ) - HOME O2 Neurological Medical History: Denies: Migraine Endocrine Medical History: Denies: Diabetes Mellitus Type 2 Musculoskeltal Medical History: Reports: Arthritis Psychiatric Medical History: Denies: Depression Infectious Medical History: Denies: Methicillin-Resistant Staph Aureus Past Surgical History Past Surgical History: Reports: Orthopedic Surgery - L TIB/FIB FRACTURE REPAIR. skin graft to same area (2000) Social History Information Source: Patient Lives with: [facility] Smoking Status: Never Smoker Frequency of Alcohol Use: None Hx Recreational Drug Use: No Drugs: None Hx Prescription Drug Abuse: No - Advance Directive Resuscitation Status: Do Not Resuscitate Family History Family History: Arthritis, CAD, CVA, Hyperlipidemia, Hypertension Parental Family History Reviewed: Yes Children Family History Reviewed: Yes Sibling(s) Family History Reviewed.: Yes Medication/Allergy Home Medications: Acetaminophen [Tylenol 325 mg Tablet] 650 mg PO Q6HP PRN 01/10/18 Losartan Potassium [Cozaar 25 mg Tablet] 25 mg PO DAILY 01/10/18 Medroxyprogesterone Acetate [Provera] 2.5 mg PO DAILY 01/10/18 Allergies/Adverse Reactions: nut - unspecified Allergy (Verified 12/02/16 06:52) chocolate Allergy (Uncoded 12/02/16 06:52) wasp Allergy (Uncoded 12/02/16 06:52) Review of Systems Review of Systems: Please see history of present illness and past medical history as wall. Constitutional: No fever or chills reported. Head : No recent chronic headaches, recent head injury. Eyes: No recent eye pain, diplopia, redness, discharge, acute visual changes. Ears: No recent chronic ear pain, acute hearing loss, ear discharge. Oral cavity: No recent ulcerations, bleeding, oral cavity discomfort. Neck: No recent acute neck pain reported. Hematologic: No recent easy bruising or bleeding. Lymphatic: No recent lymph node enlargement reported. Cardiovascular system review: See history of present illness. Respiratory system review: No hemoptysis or blood clots in the lungs reported. Shortness of breath on exertion Gastrointestinal system review: Negative for any recent acute hematemesis, melena. Genitourinary system review: No recent acute or chronic hematuria, flank pain, UTI etc. reported. Skin system review: Chronic bilateral leg edema and chronic lower extremity lower leg rash and problems with cellulitis.. Neurologic: No prior history of strokes, mini strokes, seizure disorder. Psychologic: No history of major psychosis or major depression reported. Musculoskeletal: Minor aches and pains reported. No acute joint swelling reported. Patient has decreased mobility because of obesity and chronic leg edema. Endocrine: No recent polyuria, polydipsia, recent heat or cold intolerance. Physical Exam Vital Signs: Temp Pulse Resp BP Pulse Ox 98.4 F 78 16 135/65 H 97 01/14/18 11:18 01/14/18 11:18 01/14/18 11:18 01/14/18 11:18 01/14/18 11:18 Pulse Oximeter Continuous Start: 01/12/18 10: 24 Freq: RTQ4 Status: Active Document 01/14/18 09:14 J (Rec: 01/14/18 09:15 [id number] [email or web address]) Pulse Oximetry Assessment Oxygen Saturation (92-100) 94 Oxygen Delivery Method Bi-pap Fraction of Inspired Oxygen (FIO2) 30 Equipment Usage Equipment in Use Continuous SpO2 Machine # 7 Intake & Output 01/13/18 01/14/18 01/15/18 06:59 06:59 06:59 Intake Total 230 1728 236 Output Total 3300 2325 175 Balance -3070 -597 61 Weight 115.8 kg 115.6 kg Exam: GENERAL: well-nourished and in no acute distress. Alert and oriented x3 HEAD: Atraumatic, normocephalic. EYES: Pupils equal round and reactive to light, extraocular movements intact, sclera anicteric, conjunctiva are normal. ENT: TMs normal, nares patent, oropharynx clear without exudates. Moist mucous membranes. No oral ulcerations or bleeding gums noted NECK: supple without lymphadenopathy. Trachea is central. No cervical or axillary lymphadenopathy noted. Carotids are 2+, JVD WNL LUNGS: Respiration seems nonlabored, no significant accessory muscle action noted. Breath sounds clear to auscultation bilaterally and equal noted. No wheezes rales or rhonchi noted. No significant dullness noted on percussion. CHEST: Palpation of the chest wall shows no significant chest wall tenderness. HEART: [place] [employer], No PSH, 2-3/6 MERLIN aortic area, 1/6 acharya systolic murmur mitral area, no rubs, no gallops. ABDOMEN: Soft, no significant tenderness appreciated, normoactive bowel sounds. No guarding, no rebound. No rigidity noted . No masses appreciated. EXTREMITIES: Pedal pulses difficult to feel due to chronic edema but peripheral perfusion intact, no calf tenderness noted. No clubbing or cyanosis. 2-3+ pedal edema noted NEUROLOGICAL: Focused neurological exam showed no significant neurologic deficit. Normal speech, no focal weakness appreciated. PSYCH: Normal mood, normal affect. Judgment and insight within normal limits. SKIN: No significant ecchymosis, skin is noted to be warm. Significant cellulitic rash noted both lower extremity. MUSCULOSKELETAL EXAM: No significant acute joint swelling noted. Results Laboratory Results: 01/14/18 06:38 01/14/18 09:52 01/14/18 01/14/18 01/14/18 06:38 06:38 09:05 WBC 13.0 H RBC 4.44 Hgb 12.7 Hct 39.4 MCV 89 MCH 28.7 MCHC 32.3 RDW 15.3 H Plt Count 157 Seg Neutrophils % Not Reportable Lymphocytes % Not Reportable Monocytes % Not Reportable Eosinophils % Not Reportable Basophils % Not Reportable Absolute Neutrophils Not Reportable Absolute Lymphocytes Not Reportable Absolute Monocytes Not Reportable Absolute Eosinophils Not Reportable Absolute Basophils Not Reportable Carbonic Acid 1.81 H HCO3/H2CO3 Ratio 23:1 ABG pH 7.46 H ABG pCO2 60.2 H ABG pO2 72.6 L ABG HCO3 42.0 H ABG O2 Saturation 94.9 ABG Base Excess 15.2 FiO2 30% Sodium 142.5 Potassium 3.0 L* Chloride 95 L Carbon Dioxide 40 H* Anion Gap 8 BUN 22 H Creatinine 0.67 Est GFR ( Amer) > 60 Est GFR (Non-Af Amer) > 60 Glucose 97 Calcium 8.6 Total Bilirubin 0.4 AST 18 ALT 37 Alkaline Phosphatase 106 Total Protein 5.9 L Albumin 2.4 L 01/14/18 09:52 WBC RBC Hgb Hct MCV MCH MCHC RDW Plt Count Seg Neutrophils % Lymphocytes % Monocytes % Eosinophils % Basophils % Absolute Neutrophils Absolute Lymphocytes Absolute Monocytes Absolute Eosinophils Absolute Basophils Carbonic Acid HCO3/H2CO3 Ratio ABG pH ABG pCO2 ABG pO2 ABG HCO3 ABG O2 Saturation ABG Base Excess FiO2 Sodium Potassium Chloride Carbon Dioxide Anion Gap BUN Creatinine 0.59 Est GFR ( Amer) > 60 Est GFR (Non-Af Amer) > 60 Glucose Calcium Total Bilirubin AST ALT Alkaline Phosphatase Total Protein Albumin 01/10/18 01/12/18 01/12/18 17:19 09:50 09:50 Creatine Kinase 24 L CK-MB (CK-2) 1.78 Troponin I 0.035 NT-Pro-B Natriuret Pep 984 H 01/13/18 06:50 Creatine Kinase CK-MB (CK-2) Troponin I NT-Pro-B Natriuret Pep 1060 H EKG Comments: Sinus rhythm, right atrial abnormality, cannot rule out prior inferior MT Impressions: Foot X-Ray 01/10/18 13:58 IMPRESSION: Likely osteomyelitis involving the 4th distal phalanx. Lower Extremity MRI 01/10/18 15:35 IMPRESSION: SIGNIFICANTLY LIMITED EVALUATION OF THE LEFT FOOT HOWEVER THERE IS MR EVIDENCE OF OSTEOMYELITIS INVOLVING THE DISTAL PHALANX 4TH TOE LEFT FOOT SEEN ON RADIOGRAPHS. Chest/Abdomen CTA 01/12/18 00:00 IMPRESSION: UNREMARKABLE CTA CHEST WITHOUT PULMONARY EMBOLI. PRESUMED PULMONARY EDEMA WITH SMALL BILATERAL PLEURAL EFFUSIONS AND ASSOCIATED COMPRESSIVE ATELECTASIS. Chest X-Ray 01/14/18 00:00 IMPRESSION: Lungs currently clear. Assessment & Plan - Diagnosis (1) Congestive heart failure Qualifiers: Heart failure chronicity: unspecified Is this a current diagnosis for this admission?: Yes (2) COPD (chronic obstructive pulmonary disease) Qualifiers: COPD type: unspecified COPD Qualified Code(s): J44.9 - Chronic obstructive pulmonary disease, unspecified Is this a current diagnosis for this admission?: Yes (3) Acute and chronic respiratory failure Qualifiers: Respiratory failure complication: hypoxia and hypercapnia Qualified Code(s) : J96.21 - Acute and chronic respiratory failure with hypoxia Is this a current diagnosis for this admission?: Yes (4) Bilateral lower leg cellulitis Is this a current diagnosis for this admission?: Yes (5) Essential hypertension Is this a current diagnosis for this admission?: Yes (6) Generalized weakness Is this a current diagnosis for this admission?: Yes (7) Morbid obesity Is this a current diagnosis for this admission?: Yes - Notes Notes: Congestive heart failure: Patient noted to have this by symptom of dyspnea, pedal edema, elevated BNP level. JVP was difficult to assess but feel it is distended. Continue diuretic therapy. BNP shows elevation higher than baseline. Will recommend switch to torsemide. Started spironolactone. COPD: This is being expertly managed by hospitalist and also pipe organ technician. Acute on chronic respiratory failure: Patient would benefit from bilevel therapy , pipe organ technician following. Bilateral leg cellulitis: This is being expertly managed by hospitalist. Essential hypertension: Blood pressure initially was high but now coming under better control. Morbid obesity: Patient will benefit from weight loss. Obstructive sleep apnea: Explained benefit of positive pressure therapy and noninvasive ventilation therapy. Further plans after review of 2D echocardiogram. - Time Time Spent: 30 to 50 Minutes - CODE STATUS : was discussed, patient remains DO NOT RESUSCITATE. Surrogate decision-maker unchanged. Multiple medical problems were addressed. More than 50% of the time spent coordinating care, discussing management plans with involved caregivers. Management plans discussed with involved personnels. Medical decision making was of moderate to high complexity, patient's has multiple comorbidities. Medications reviewed and adjusted accordingly: Yes
--- NOTE | 2018-01-14 14:29 | PDOC CONSULTATION ---
Consultation Consult Date: 01/14/18 Attending physician:: ARPITA HAGEN Consult reason:: Acute on chronic respiratory failure History of Present Illness Admission Date/PCP: 01/10/18 15:49 JAMES ESCOBAR History of Present Illness: MANNY GLOVER is a 72 year old female,with multiple medical problems who presented to the emergency room because of increasing pain in her left fourth toe that have been persistent for several months and the pain got to the point where it is intolerable she presented to the emergency room subsequent x-rays were troublesome for osteomyelitis she has subsequently been coming evaluated by orthopedics. She also has a long history of COPD O2 dependent and hypercapnic hypoxic respiratory failure she denies shortness of breath or increasing dyspnea on exertion occasional cough clear phlegm no hemoptysis PPD status is negative dates unknown no history of chronic lung disease as a child or adolescent. She missed exposure large amounts of passive smoke as a child as well as an adult she has no pets no recent travel she denies angina-like chest pain sleeps on 2-3 pillows no PND no nocturnal cough chronic edema. She admits to snoring restless sleep nocturia 1-2 times per night unrestful sleep and excessive daytime somnolence. Past Medical History Cardiac Medical History: Reports: Hypertension, Peripheral Vascular Disease, Heart Murmur Pulmonary Medical History: Reports: Chronic Obstructive Pulmonary Disease (COPD ) - HOME O2, Respiratory Failure EENT Medical History: Denies: Nose, Throat Neurological Medical History: Denies: Migraine, Multiple Sclerosis Endocrine Medical History: Reports: Obesity Denies: Diabetes Mellitus Type 2 Renal/ Medical History: Denies: End Stage Renal Disease Malignancy Medical History: Reports: None GI Medical History: Denies: Cirrhosis, Peptic Ulcer Disease, Ulcerative Colitis Musculoskeltal Medical History: Reports: Arthritis Denies: Fibromyalgia Skin Medical History: Denies: Eczema, Psoriasis Psychiatric Medical History: Denies: Depression, Tobacco Dependency Traumatic Medical History: Denies: Pneumothorax, Traumatic Brain Injury Hematology: Denies: Hemophilia, Sickle Cell Disease Infectious Medical History: Denies: HIV, Methicillin-Resistant Staph Aureus Past Surgical History Past Surgical History: Reports: Orthopedic Surgery - L TIB/FIB FRACTURE REPAIR. skin graft to same area (2000) Social History Information Source: Patient, [facility] Records Lives with: [facility] Smoking Status: Never Smoker Passive smoke exposure as: Both Frequency of Alcohol Use: None Hx Recreational Drug Use: No Drugs: None Hx Prescription Drug Abuse: No Do you have pets?: No Have you had any respiratory illnesses as a child?: No Have you been exposed to any sick contacts recently?: No Have you had any recent respiratory illnesses?: No Have you travelled outside of [place] in the past 12 months?: No - Advance Directive Resuscitation Status: Do Not Resuscitate Family History Family History: Arthritis, CAD, CVA, Hyperlipidemia, Hypertension Parental Family History Reviewed: Yes Children Family History Reviewed: Yes Sibling(s) Family History Reviewed.: Yes Medication/Allergy Home Medications: Acetaminophen [Tylenol 325 mg Tablet] 650 mg PO Q6HP PRN 01/10/18 Losartan Potassium [Cozaar 25 mg Tablet] 25 mg PO DAILY 01/10/18 Medroxyprogesterone Acetate [Provera] 2.5 mg PO DAILY 01/10/18 Allergies/Adverse Reactions: nut - unspecified Allergy (Verified 12/02/16 06:52) chocolate Allergy (Uncoded 12/02/16 06:52) wasp Allergy (Uncoded 12/02/16 06:52) Review of Systems Constitutional: ABSENT: anorexia, night sweats Eyes: ABSENT: visual disturbances Ears: ABSENT: hearing changes Nose, Mouth, and Throat: ABSENT: mouth pain, sore throat Cardiovascular: ABSENT: palpitations Respiratory: ABSENT: dyspnea Gastrointestinal: ABSENT: abdominal pain, bloating, coffee ground emesis, dysphagia, hematemesis, hematochezia, melena Musculoskeletal: ABSENT: deformity Integumentary: ABSENT: lesions, pruritus Neurological: ABSENT: abnormal movements, abnormal speech, confusion, convulsions, focal weakness, frequent falls, memory loss Psychiatric: ABSENT: hallucinations, homidical ideation, suicidal ideation Endocrine: ABSENT: cold intolerance, heat intolerance Hematologic/Lymphatic: ABSENT: lymphadenopathy Allergic/Immunologic: ABSENT: seasonal rhinorrhea Physical Exam Vital Signs: Temp Pulse Resp BP Pulse Ox 98.4 F 78 16 135/65 H 97 01/14/18 11:18 01/14/18 11:18 01/14/18 11:18 01/14/18 11:18 01/14/18 11:18 Pulse Oximeter Continuous Start: 01/12/18 10: 24 Freq: RTQ4 Status: Active Document 01/14/18 09:14 PORFIRIO (Rec: 01/14/18 09:15 J [email or web address]) Pulse Oximetry Assessment Oxygen Saturation (92-100) 94 Oxygen Delivery Method Bi-pap Fraction of Inspired Oxygen (FIO2) 30 Equipment Usage Equipment in Use Continuous SpO2 Machine # 7 Intake & Output 01/13/18 01/14/18 01/15/18 06:59 06:59 06:59 Intake Total 230 1728 236 Output Total 3300 2325 175 Balance -3070 -597 61 Weight 115.8 kg 115.6 kg General appearance: PRESENT: no acute distress, cooperative, disheveled, morbidly obese Head exam: PRESENT: atraumatic, normocephalic Eye exam: PRESENT: conjunctiva pale, EOMI. ABSENT: nystagmus, periorbital swelling, scleral icterus Mouth exam: PRESENT: dry mucosa, neck supple, tongue midline Neck exam: ABSENT: carotid bruit, JVD, lymphadenopathy, thyromegaly, tracheal deviation, tracheostomy Respiratory exam: PRESENT: decreased breath sounds, prolonged expiratory phas, rales, rhonchi, unlabored, wheezes. ABSENT: retraction, stridor Cardiovascular exam: PRESENT: RRR, +S1, +S2, systolic murmur Pulses: PRESENT: normal radial pulses GI/Abdominal exam: PRESENT: normal bowel sounds, soft Extremities exam: PRESENT: +2 edema, other - Diffuse bilateral cellulitis. ABSENT: calf tenderness, clubbing Musculoskeletal exam: ABSENT: ambulatory, deformity, dislocation Neurological exam: PRESENT: alert, awake Psychiatric exam: PRESENT: flat affect Skin exam: PRESENT: dry, warm Results Laboratory Results: 01/14/18 06:38 01/14/18 09:52 01/14/18 01/14/18 01/14/18 06:38 06:38 09:05 WBC 13.0 H RBC 4.44 Hgb 12.7 Hct 39.4 MCV 89 MCH 28.7 MCHC 32.3 RDW 15.3 H Plt Count 157 Seg Neutrophils % Not Reportable Lymphocytes % Not Reportable Monocytes % Not Reportable Eosinophils % Not Reportable Basophils % Not Reportable Absolute Neutrophils Not Reportable Absolute Lymphocytes Not Reportable Absolute Monocytes Not Reportable Absolute Eosinophils Not Reportable Absolute Basophils Not Reportable Carbonic Acid 1.81 H HCO3/H2CO3 Ratio 23:1 ABG pH 7.46 H ABG pCO2 60.2 H ABG pO2 72.6 L ABG HCO3 42.0 H ABG O2 Saturation 94.9 ABG Base Excess 15.2 FiO2 30% Sodium 142.5 Potassium 3.0 L* Chloride 95 L Carbon Dioxide 40 H* Anion Gap 8 BUN 22 H Creatinine 0.67 Est GFR ( Amer) > 60 Est GFR (Non-Af Amer) > 60 Glucose 97 Calcium 8.6 Total Bilirubin 0.4 AST 18 ALT 37 Alkaline Phosphatase 106 Total Protein 5.9 L Albumin 2.4 L 01/14/18 09:52 WBC RBC Hgb Hct MCV MCH MCHC RDW Plt Count Seg Neutrophils % Lymphocytes % Monocytes % Eosinophils % Basophils % Absolute Neutrophils Absolute Lymphocytes Absolute Monocytes Absolute Eosinophils Absolute Basophils Carbonic Acid HCO3/H2CO3 Ratio ABG pH ABG pCO2 ABG pO2 ABG HCO3 ABG O2 Saturation ABG Base Excess FiO2 Sodium Potassium Chloride Carbon Dioxide Anion Gap BUN Creatinine 0.59 Est GFR ( Amer) > 60 Est GFR (Non-Af Amer) > 60 Glucose Calcium Total Bilirubin AST ALT Alkaline Phosphatase Total Protein Albumin 01/10/18 01/12/18 01/12/18 17:19 09:50 09:50 Creatine Kinase 24 L CK-MB (CK-2) 1.78 Troponin I 0.035 NT-Pro-B Natriuret Pep 984 H 01/13/18 06:50 Creatine Kinase CK-MB (CK-2) Troponin I NT-Pro-B Natriuret Pep 1060 H Impressions: Foot X-Ray 01/10/18 13:58 IMPRESSION: Likely osteomyelitis involving the 4th distal phalanx. Lower Extremity MRI 01/10/18 15:35 IMPRESSION: SIGNIFICANTLY LIMITED EVALUATION OF THE LEFT FOOT HOWEVER THERE IS MR EVIDENCE OF OSTEOMYELITIS INVOLVING THE DISTAL PHALANX 4TH TOE LEFT FOOT SEEN ON RADIOGRAPHS. Chest/Abdomen CTA 01/12/18 00:00 IMPRESSION: UNREMARKABLE CTA CHEST WITHOUT PULMONARY EMBOLI. PRESUMED PULMONARY EDEMA WITH SMALL BILATERAL PLEURAL EFFUSIONS AND ASSOCIATED COMPRESSIVE ATELECTASIS. Chest X-Ray 01/14/18 00:00 IMPRESSION: Lungs currently clear. Assessment & Plan - Diagnosis (1) COPD (chronic obstructive pulmonary disease) Qualifiers: COPD type: unspecified COPD Qualified Code(s): J44.9 - Chronic obstructive pulmonary disease, unspecified Is this a current diagnosis for this admission?: Yes Plan: consider hold on spireva and advair for now Generic Name Dose Route Start Last Admin Trade Name Freq PRN Reason Stop Dose Admin Tiotropium Sarepta 1 cap 01/13/18 10:00 01/14/18 10:10 Spiriva Handihaler 5 Cap/Kit (18 Mcg/Cap) IH 02/12/18 09:59 1 cap DAILY ERICA Albuterol/Ipratropium 3 ml 01/14/18 13:25 Duoneb 3 Ml Ampul NEB 02/13/18 13:24 RTQ6HP PRN SHORTNESS OF BREATH Fluticasone/Salmeterol 1 inh 01/11/18 22:00 01/14/18 10:08 Advair 250-50 Diskus 14 Dose/Diskus IH 02/10/18 21:59 1 inh Q12 ERICA (2) Osteomyelitis of toe of left foot Is this a current diagnosis for this admission?: Yes Plan: Generic Name Dose Route Start Last Admin Trade Name Freq PRN Reason Stop Dose Admin Vancomycin HCl 1,000 mg/ 250 mls @ 166.667 mls/hr 01/14/18 22:00 Dextrose IV 01/21/18 21:59 Q12 ERICA Piperacillin Sod/Tazobactam 100 mls @ 200 mls/hr 01/10/18 21:00 01/14/18 08: 13 Sod 3.375 gm/ Sodium Chloride IV 01/17/18 20:59 3.375 gm Q6A ERICA (3) Accelerated essential hypertension Is this a current diagnosis for this admission?: Yes Plan: stable (4) Acute and chronic respiratory failure Qualifiers: Respiratory failure complication: hypoxia and hypercapnia Qualified Code(s) : J96.21 - Acute and chronic respiratory failure with hypoxia Is this a current diagnosis for this admission?: Yes Plan: require NIPPV and supp O2 (5) Bilateral lower leg cellulitis Is this a current diagnosis for this admission?: Yes Plan: vancomycin and Zosyn (6) Morbid obesity with BMI of 40.0-44.9, adult Is this a current diagnosis for this admission?: Yes (7) ANNA (obstructive sleep apnea) Is this a current diagnosis for this admission?: Yes Plan: NIPPV
--- NOTE | 2018-01-14 15:08 | PDOC PROGRESS REPORT ---
<ANEN-MARIE SHAVER - Last Filed: 01/14/18 14:49> Subjective Progress Note for:: 01/14/18 Subjective:: The patient is a 72-year-old female with a past medical history of recurrent cellulitis to bilateral lower extremities, COPD on home O2, hypertension, PVD, arthritis, and morbid obesity who was admitted on 01/10/18 for bilateral lower extremity cellulitis and left fourth toe concerning for osteomyelitis and subsequently developed acute on chronic respiratory failure. Patient is seen on morning rounds. She is found resting in bed on BiPAP; she remains tachypneic with a respiratory rate of 24 and appears to be mildly anxious. She states that she continues to feel dyspnea at rest that is improved by BiPAP use. She denies fever, chills, chest pain, palpitations, cough, abdominal pain, nausea vomiting and diarrhea. She denies pain to her lower extremities. She states that she has not been able to visualize her legs and so cannot comment on their appearance. Reason For Visit: OSTEOMYELITIS Physical Exam Vital Signs: Temp Pulse Resp BP Pulse Ox 98.4 F 78 16 135/65 H 97 01/14/18 11:18 01/14/18 11:18 01/14/18 11:18 01/14/18 11:18 01/14/18 11:18 Pulse Oximeter Continuous Start: 01/12/18 10: 24 Freq: RTQ4 Status: Active Document 01/14/18 09:14 J (Rec: 01/14/18 09:15 J [email or web address]) Pulse Oximetry Assessment Oxygen Saturation (92-100) 94 Oxygen Delivery Method Bi-pap Fraction of Inspired Oxygen (FIO2) 30 Equipment Usage Equipment in Use Continuous SpO2 Machine # 7 Intake & Output 01/13/18 01/14/18 01/15/18 06:59 06:59 06:59 Intake Total 230 1728 236 Output Total 3308 8625 175 Balance -5610 -897 61 Weight 115.8 kg 115.6 kg General appearance: PRESENT: no acute distress, morbidly obese, well-developed, well-nourished Head exam: PRESENT: atraumatic, normocephalic Eye exam: PRESENT: conjunctiva pink, EOMI, PERRLA. ABSENT: scleral icterus Ear exam: PRESENT: normal external ear exam Mouth exam: PRESENT: moist, tongue midline Neck exam: ABSENT: carotid bruit, JVD, lymphadenopathy, thyromegaly Respiratory exam: PRESENT: clear to auscultation michelle, decreased breath sounds - Secondary to body habitus and poor inspiratory effort, symmetrical, tachypnea, other - BiPAP. ABSENT: rales, rhonchi, wheezes Cardiovascular exam: PRESENT: RRR, +S1, +S2. ABSENT: diastolic murmur, rubs, systolic murmur Pulses: PRESENT: other - Pedal pulses require Doppler to be obtained; brisk cap refill Vascular exam: PRESENT: normal capillary refill GI/Abdominal exam: PRESENT: normal bowel sounds, soft. ABSENT: distended, guarding, mass, organolmegaly, rebound, tenderness Rectal exam: PRESENT: deferred Extremities exam: PRESENT: full ROM, pedal edema - Trace, nonpitting. ABSENT: calf tenderness, clubbing Neurological exam: PRESENT: alert, awake, oriented to person, oriented to place , oriented to time, oriented to situation, CN II-XII grossly intact. ABSENT: motor sensory deficit Psychiatric exam: PRESENT: anxious, appropriate affect, normal mood. ABSENT: homicidal ideation, suicidal ideation Skin exam: PRESENT: dry, erythema - BLE circumferential erythema with chronic venous stasis changes. Brisk cap refill to bilateral feet. Fourth toe of left foot dusky. Calluses to the plantar portion of both heels., intact, warm. ABSENT: cyanosis, rash Results Laboratory Results: 01/14/18 06:38 01/14/18 09:52 01/14/18 01/14/18 01/14/18 06:38 06:38 09:05 WBC 13.0 H RBC 4.44 Hgb 12.7 Hct 39.4 MCV 89 MCH 28.7 MCHC 32.3 RDW 15.3 H Plt Count 157 Seg Neutrophils % Not Reportable Lymphocytes % Not Reportable Monocytes % Not Reportable Eosinophils % Not Reportable Basophils % Not Reportable Absolute Neutrophils Not Reportable Absolute Lymphocytes Not Reportable Absolute Monocytes Not Reportable Absolute Eosinophils Not Reportable Absolute Basophils Not Reportable Carbonic Acid 1.81 H HCO3/H2CO3 Ratio 23:1 ABG pH 7.46 H ABG pCO2 60.2 H ABG pO2 72.6 L ABG HCO3 42.0 H ABG O2 Saturation 94.9 ABG Base Excess 15.2 FiO2 30% Sodium 142.5 Potassium 3.0 L* Chloride 95 L Carbon Dioxide 40 H* Anion Gap 8 BUN 22 H Creatinine 0.67 Est GFR ( Amer) > 60 Est GFR (Non-Af Amer) > 60 Glucose 97 Calcium 8.6 Total Bilirubin 0.4 AST 18 ALT 37 Alkaline Phosphatase 106 Total Protein 5.9 L Albumin 2.4 L 01/14/18 09:52 WBC RBC Hgb Hct MCV MCH MCHC RDW Plt Count Seg Neutrophils % Lymphocytes % Monocytes % Eosinophils % Basophils % Absolute Neutrophils Absolute Lymphocytes Absolute Monocytes Absolute Eosinophils Absolute Basophils Carbonic Acid HCO3/H2CO3 Ratio ABG pH ABG pCO2 ABG pO2 ABG HCO3 ABG O2 Saturation ABG Base Excess FiO2 Sodium Potassium Chloride Carbon Dioxide Anion Gap BUN Creatinine 0.59 Est GFR ( Amer) > 60 Est GFR (Non-Af Amer) > 60 Glucose Calcium Total Bilirubin AST ALT Alkaline Phosphatase Total Protein Albumin 01/10/18 01/12/18 01/12/18 17:19 09:50 09:50 Creatine Kinase 24 L CK-MB (CK-2) 1.78 Troponin I 0.035 NT-Pro-B Natriuret Pep 984 H 01/13/18 06:50 Creatine Kinase CK-MB (CK-2) Troponin I NT-Pro-B Natriuret Pep 1060 H Impressions: Foot X-Ray 01/10/18 13:58 IMPRESSION: Likely osteomyelitis involving the 4th distal phalanx. Lower Extremity MRI 01/10/18 15:35 IMPRESSION: SIGNIFICANTLY LIMITED EVALUATION OF THE LEFT FOOT HOWEVER THERE IS MR EVIDENCE OF OSTEOMYELITIS INVOLVING THE DISTAL PHALANX 4TH TOE LEFT FOOT SEEN ON RADIOGRAPHS. Chest/Abdomen CTA 01/12/18 00:00 IMPRESSION: UNREMARKABLE CTA CHEST WITHOUT PULMONARY EMBOLI. PRESUMED PULMONARY EDEMA WITH SMALL BILATERAL PLEURAL EFFUSIONS AND ASSOCIATED COMPRESSIVE ATELECTASIS. Chest X-Ray 01/14/18 00:00 IMPRESSION: Lungs currently clear. Assessment & Plan - Diagnosis (1) Acute respiratory failure with hypoxia and hypercapnia Is this a current diagnosis for this admission?: Yes Plan: The patient endorses a history of COPD requiring home O2 at 2 L/min. She also endorses a history of hypercapnic respiratory distress. CTA of the chest revealed pulmonary edema with small bilateral pleural effusions and associated compressive atelectasis. No pulmonary emboli. Chest x-ray today demonstrates resolution of recent pulmonary edema and pleural effusion. ABG this morning while on BiPAP 7.46/60.2/72.3/42.0; somewhat improved from yesterday. Blood cultures are negative at 72 hours. We will obtain sputum culture. ProBNP elevated to 1060 The patient is currently admitted to [facility]. We will provide supplemental oxygen as needed to maintain oxygen saturations greater than 88%. BiPAP as needed. The patient is a DNR/DNI. Will transition to low dose p.o. furosemide now that pulmonary edema has resolved. Will obtain echocardiogram. Will provide scheduled and as needed nebulizer treatments. Continue home dose advair and spiriva. The patient is afebrile, WBCs are trending down, chest x-ray is negative for airspace disease, and although diminished her lung sounds are clear. I do not believe the patient has an active pneumonia, however, she is on IV Zosyn and vancomycin for osteomyelitis which would provide appropriate coverage for community-acquired/hospital associated pneumonias. We will hold steroids at this time as she does not have any adventitious breath sounds. (2) Osteomyelitis of toe of left foot Is this a current diagnosis for this admission?: Yes Plan: Patient was admitted with concern for osteomyelitis of 4th toe to left foot. Xray was concerning for osteomyelitis. MRI was a suboptimal exam but does demonstrate osteomyelitis of the distal phalynx of the left 4th toe. Orthopedics is consulted; deemed nonoperative. Wound and blood cultures have no growth to date. The patient has been empirically placed on Vancomycin and Zosyn. WBCs are trending down. Likely will require PICC line for skilled nursing antibiotics. Will consult ID for recommendations. (3) Bilateral lower leg cellulitis Is this a current diagnosis for this admission?: Yes Plan: Improving. Patient endorses a history of frequent cellulitis of lower extremities. She has been treated at [facility] multiple times for the same complaint. Venous Doppler was negative for DVT. Arterial ultrasound demonstrated 20-49% stenosis of the right femoral artery and 20-49% stenosis of the left aorto Iliac inlet and flow. Cultures and antibiotics as above. ROSALINDA hose as tolerated. (4) COPD (chronic obstructive pulmonary disease) QualifierTitle: COPD type: unspecified COPD Qualified Code(s): J44.9 - Chronic obstructive pulmonary disease, unspecified Is this a current diagnosis for this admission?: Yes Plan: Plan as above. (5) Essential hypertension Is this a current diagnosis for this admission?: Yes Plan: Will continue home dose Losartan. (6) Morbid obesity Is this a current diagnosis for this admission?: Yes Plan: The patient's obesity will certainly prolong her recovery and place her at risk for delayed wound healing and worsening respiratory status. Dietary discretion is advised. Cardiac diet. Will consult the registered nursing professor for recommendations. (7) Hypokalemia Is this a current diagnosis for this admission?: Yes Plan: Secondary to poor p.o. intake and diuretic therapy with IV Lasix. Will replace with K-riders. Monitor daily BMP and correct as needed. - Time Time Spent with patient: 25-34 minutes Medications reviewed and adjusted accordingly: Yes Anticipated discharge: [facility] <LONIDECEMBER C - Last Filed: 01/15/18 15:53> Subjective Reason For Visit: OSTEOMYELITIS Physical Exam Vital Signs: Temp Pulse Resp BP Pulse Ox 98.8 F 53 L 40 H 151/87 H 93 01/15/18 11:57 01/15/18 14:00 01/15/18 11:57 01/15/18 11:57 01/15/18 12:00 Pulse Oximeter Continuous Start: 01/12/18 10: 24 Freq: RTQ4 Status: Active Document 01/15/18 12:00 HCR (Rec: 01/15/18 14:26 HCR [email or web address]) Pulse Oximetry Assessment Oxygen Saturation (92-100) 93 Oxygen Flow Rate (L/min) 3 Oxygen Delivery Method Nasal Cannula Equipment Usage Equipment in Use Continuous SpO2 Machine # 7 Intake & Output 01/14/18 01/15/18 01/16/18 06:59 06:59 06:59 Intake Total 1728 3159 175 Output Total 2325 675 250 Balance -597 2484 -75 Weight 115.6 kg 115.8 kg Results Laboratory Results: 01/15/18 06:07 01/15/18 06:07 01/15/18 01/15/18 06:07 06:07 WBC 10.5 RBC 4.54 Hgb 13.2 Hct 39.9 MCV 88 MCH 29.0 MCHC 33.0 RDW 15.1 H Plt Count 167 Sodium 143.6 Potassium 3.7 Chloride 98 Carbon Dioxide 38 H Anion Gap 8 BUN 16 Creatinine 0.56 Est GFR ( Amer) > 60 Est GFR (Non-Af Amer) > 60 Glucose 93 Calcium 8.7 01/12/18 10:06 Leg - Sore Gram Stain - Final 01/12/18 10:06 Leg - Sore Wound Culture - Final NO GROWTH 3 DAYS 01/10/18 01/12/18 01/12/18 17:19 09:50 09:50 Creatine Kinase 24 L CK-MB (CK-2) 1.78 Troponin I 0.035 NT-Pro-B Natriuret Pep 984 H 01/13/18 01/15/18 06:50 06:07 Creatine Kinase CK-MB (CK-2) Troponin I NT-Pro-B Natriuret Pep 1060 H 1860 H Impressions: Foot X-Ray 01/10/18 13:58 IMPRESSION: Likely osteomyelitis involving the 4th distal phalanx. Lower Extremity MRI 01/10/18 15:35 IMPRESSION: SIGNIFICANTLY LIMITED EVALUATION OF THE LEFT FOOT HOWEVER THERE IS MR EVIDENCE OF OSTEOMYELITIS INVOLVING THE DISTAL PHALANX 4TH TOE LEFT FOOT SEEN ON RADIOGRAPHS. Chest/Abdomen CTA 01/12/18 00:00 IMPRESSION: UNREMARKABLE CTA CHEST WITHOUT PULMONARY EMBOLI. PRESUMED PULMONARY EDEMA WITH SMALL BILATERAL PLEURAL EFFUSIONS AND ASSOCIATED COMPRESSIVE ATELECTASIS. Chest X-Ray 01/14/18 00:00 IMPRESSION: Lungs currently clear. Assessment & Plan - Plan Summary Plan Summary: Co signing note for Anne-Marie Shaver NP
[2018-01-14] MEDS ORDERED: FLUTICASONE/UMECLIDIN/VILANTER 100-62.5-25 MCG/DOSE IH ONE (16:00)
[2018-01-14] MEDS ORDERED: POTASSIUM CHLORIDE 20 MEQ/50 ML RTU IV ONE (19:30)
[2018-01-14] MEDS: VANCOMYCIN HCL 1,000 MG in DEXTROSE 5%-WATER 250 ML IV SCH (23:35)
[2018-01-15] MEDS: PIPERACILLIN SODIUM/TAZOBACTAM 3.375 GM in NORMAL SALINE 100 ML IV SCH ×3 (02:29→15:25)
[2018-01-15 06:47] LABS: ANION GAP 8 (5-19); BLOOD UREA NITROGEN 16 mg/dL (7-20); CALCIUM 8.7 mg/dL (8.4-10.2); CARBON DIOXIDE 38 mmol/L (22-30); CHLORIDE 98 mmol/L (98-107); GLUCOSE 93 mg/dL (75-110); POTASSIUM 3.7 mmol/L (3.6-5.0); SODIUM 143.6 mmol/L (137-145)
[2018-01-15 06:55] LABS: HEMATOCRIT 39.9 % (36.0-47.0); HEMOGLOBIN 13.2 g/dL (12.0-15.5); MEAN CORPUSCULAR VOLUME 88 fl (80-97); PLATELET COUNT 167 10^3/uL (150-450); RED BLOOD COUNT 4.54 10^6/uL (3.72-5.28); RED CELL DISTRIBUTION WIDTH 15.1 % (11.5-14.0); WHITE BLOOD COUNT 10.5 10^3/uL (4.0-10.5)
[2018-01-15] MEDS: FLUTICASONE/UMECLIDIN/VILANTER 100-62.5-25 MCG/DOSE IH SCH (10:12)
[2018-01-15] MEDS: ENOXAPARIN SODIUM INJ 40 MG/0.4 ML DISP.SYRIN SUBCUT SCH (10:12)
[2018-01-15] MEDS: FLUTICASONE/SALMETEROL DISKUS 250-50 MCG/DOSE IH SCH ×2 (10:12→21:35)
[2018-01-15] MEDS: TIOTROPIUM BROMIDE DPI 5 CAP/KIT (18 MCG/CAP) IH SCH (10:12)
[2018-01-15] MEDS: PANTOPRAZOLE SODIUM 40 MG VIAL IV SCH (10:13)
[2018-01-15] MEDS: LOSARTAN POTASSIUM 25 MG TABLET PO SCH (10:13)
[2018-01-15] MEDS: MEDROXYPROGESTERONE ACET 2.5 MG TABLET PO SCH (10:14)
[2018-01-15] MEDS: FERROUS SULFATE 325 MG TABLET PO SCH (10:14)
[2018-01-15] MEDS: SPIRONOLACTONE 25 MG TABLET PO SCH (10:14)
[2018-01-15] MEDS: ZINC SULFATE 220 MG CAPSULE PO SCH (10:14)
[2018-01-15] MEDS: FUROSEMIDE 20 MG TABLET PO SCH (10:14)
[2018-01-15] MEDS: MULTIVITAMIN TABLET PO SCH (10:14)
[2018-01-15] MEDS: NYSTATIN TOPICAL POWDER 15 GM TP SCH ×2 (10:15→21:34)
--- NOTE | 2018-01-15 11:37 | PDOC PROGRESS REPORT ---
Subjective Progress Note for:: 01/15/18 Subjective:: Patient about the same as yesterday with possible slight improvement in her breathing. Patient however refusing to wear bilevel therapy. Patient denying any chest pain. 2D echo still not been performed. Patient continues with significant chronic pedal edema. Reason For Visit: OSTEOMYELITIS Physical Exam Vital Signs: Temp Pulse Resp BP Pulse Ox 99.2 F 97 32 H 170/73 H 96 01/15/18 08:02 01/15/18 08:02 01/15/18 08:02 01/15/18 08:02 01/15/18 08:02 Pulse Oximeter Continuous Start: 01/12/18 10: 24 Freq: RTQ4 Status: Active Document 01/15/18 04:00 LRO (Rec: 01/15/18 04:36 LRO [email or web address]) Pulse Oximetry Assessment Oxygen Saturation (92-100) 96 Oxygen Delivery Method Nasal Cannula Equipment Usage Equipment in Use Continuous SpO2 Machine # 7 Intake & Output 01/14/18 01/15/18 01/16/18 06:59 06:59 06:59 Intake Total 1728 3159 Output Total 2325 675 Balance -597 2484 Weight 115.6 kg 115.8 kg Exam: GENERAL: well-nourished and in no acute distress. Alert and oriented x3 HEAD: Atraumatic, normocephalic. EYES: Pupils equal round and reactive to light, extraocular movements intact, sclera anicteric, conjunctiva are normal. ENT: TMs normal, nares patent, oropharynx clear without exudates. Moist mucous membranes. No oral ulcerations or bleeding gums noted NECK: supple without lymphadenopathy. Trachea is central. No cervical or axillary lymphadenopathy noted. Carotids are 2+, JVD WNL LUNGS: Respiration seems nonlabored, no significant accessory muscle action noted. Few bibasilar crackles and few bilateral wheezes rales or rhonchi noted. No significant dullness noted on percussion. CHEST: Palpation of the chest wall shows no significant chest wall tenderness. HEART: [employer], No PSH, 1/6 MERLIN aortic area, 1/6 acharya systolic murmur mitral area, no rubs, no gallops. ABDOMEN: Soft, no significant tenderness appreciated, normoactive bowel sounds. No guarding, no rebound. No rigidity noted . No masses appreciated. EXTREMITIES: Pedal pulses are difficult to feel but there is good capillary refill, no calf tenderness noted. No clubbing or cyanosis. 1-2+ pedal edema noted NEUROLOGICAL: Focused neurological exam showed no significant neurologic deficit. Normal speech, no focal weakness appreciated. PSYCH: Normal mood, normal affect. Judgment and insight within normal limits. SKIN: No significant ecchymosis, skin is noted to be warm. Significant rash noted both lower extremity. MUSCULOSKELETAL EXAM: No significant acute joint swelling noted. Results Laboratory Results: 01/15/18 06:07 01/15/18 06:07 01/15/18 01/15/18 06:07 06:07 WBC 10.5 RBC 4.54 Hgb 13.2 Hct 39.9 MCV 88 MCH 29.0 MCHC 33.0 RDW 15.1 H Plt Count 167 Sodium 143.6 Potassium 3.7 Chloride 98 Carbon Dioxide 38 H Anion Gap 8 BUN 16 Creatinine 0.56 Est GFR ( Amer) > 60 Est GFR (Non-Af Amer) > 60 Glucose 93 Calcium 8.7 01/12/18 10:06 Leg - Sore Gram Stain - Final 01/12/18 10:06 Leg - Sore Wound Culture - Final NO GROWTH 3 DAYS 01/10/18 01/12/18 01/12/18 17:19 09:50 09:50 Creatine Kinase 24 L CK-MB (CK-2) 1.78 Troponin I 0.035 NT-Pro-B Natriuret Pep 984 H 01/13/18 01/15/18 06:50 06:07 Creatine Kinase CK-MB (CK-2) Troponin I NT-Pro-B Natriuret Pep 1060 H 1860 H EKG Comments: Telemetry strip shows patient maintaining sinus rhythm. Impressions: Foot X-Ray 01/10/18 13:58 IMPRESSION: Likely osteomyelitis involving the 4th distal phalanx. Lower Extremity MRI 01/10/18 15:35 IMPRESSION: SIGNIFICANTLY LIMITED EVALUATION OF THE LEFT FOOT HOWEVER THERE IS MR EVIDENCE OF OSTEOMYELITIS INVOLVING THE DISTAL PHALANX 4TH TOE LEFT FOOT SEEN ON RADIOGRAPHS. Chest/Abdomen CTA 01/12/18 00:00 IMPRESSION: UNREMARKABLE CTA CHEST WITHOUT PULMONARY EMBOLI. PRESUMED PULMONARY EDEMA WITH SMALL BILATERAL PLEURAL EFFUSIONS AND ASSOCIATED COMPRESSIVE ATELECTASIS. Chest X-Ray 01/14/18 00:00 IMPRESSION: Lungs currently clear. Assessment & Plan - Diagnosis (1) Congestive heart failure Qualifiers: Heart failure chronicity: unspecified Is this a current diagnosis for this admission?: Yes (2) COPD (chronic obstructive pulmonary disease) Qualifiers: COPD type: unspecified COPD Qualified Code(s): J44.9 - Chronic obstructive pulmonary disease, unspecified Is this a current diagnosis for this admission?: Yes (3) Acute and chronic respiratory failure Qualifiers: Respiratory failure complication: hypoxia and hypercapnia Qualified Code(s) : J96.21 - Acute and chronic respiratory failure with hypoxia Is this a current diagnosis for this admission?: Yes (4) Bilateral lower leg cellulitis Is this a current diagnosis for this admission?: Yes (5) Essential hypertension Is this a current diagnosis for this admission?: Yes (7) Morbid obesity Is this a current diagnosis for this admission?: Yes (8) ANNA (obstructive sleep apnea) Is this a current diagnosis for this admission?: Yes - Notes Notes: Congestive heart failure: Patient noted to have this by symptom of dyspnea, pedal edema, elevated BNP level. JVP was difficult to assess but feel it is distended. Continue diuretic therapy. BNP shows elevation higher than baseline. Will recommend switch to torsemide. Will also recommend increasing spironolactone. COPD: This is being expertly managed by hospitalist and also program services planner. Acute on chronic respiratory failure: Patient would benefit from bilevel therapy but she is currently refusing to wear this. Bilateral leg cellulitis: This is being expertly managed by hospitalist. Essential hypertension: Blood pressure initially was high but now coming under better control. Morbid obesity: Patient will benefit from weight loss. Obstructive sleep apnea: Explained benefit of positive pressure therapy and noninvasive ventilation therapy. Currently refusing to wear CPAP/BiPAP therapy. - Time Time with patient: Greater than 35 minutes - CODE STATUS : was discussed, patient remains DO NOT RESUSCITATE. Surrogate decision-maker unchanged. Multiple medical problems were addressed. More than 50% of the time spent coordinating care, discussing management plans with involved caregivers. Management plans discussed with involved personnels. Medical decision making was of moderate to high complexity, patient's has multiple comorbidities. Medications reviewed and adjusted accordingly: Yes
[2018-01-15] MEDS: VANCOMYCIN HCL 1,000 MG in DEXTROSE 5%-WATER 250 ML IV SCH (11:39)
[2018-01-15] MEDS ORDERED: CARVEDILOL 3.125 MG TABLET PO ONE (12:00)
--- NOTE | 2018-01-15 15:03 | PDOC PROGRESS REPORT ---
Subjective Progress Note for:: 01/15/18 Subjective:: A little better Reason For Visit: OSTEOMYELITIS Physical Exam Vital Signs: Temp Pulse Resp BP Pulse Ox 98.8 F 53 L 40 H 151/87 H 93 01/15/18 11:57 01/15/18 14:00 01/15/18 11:57 01/15/18 11:57 01/15/18 12:00 Pulse Oximeter Continuous Start: 01/12/18 10: 24 Freq: RTQ4 Status: Active Document 01/15/18 12:00 HCR (Rec: 01/15/18 14:26 HCR [email or web address]) Pulse Oximetry Assessment Oxygen Saturation (92-100) 93 Oxygen Flow Rate (L/min) 3 Oxygen Delivery Method Nasal Cannula Equipment Usage Equipment in Use Continuous SpO2 Machine # 7 Intake & Output 01/14/18 01/15/18 01/16/18 06:59 06:59 06:59 Intake Total 1728 3159 175 Output Total 2325 675 250 Balance -597 2484 -75 Weight 115.6 kg 115.8 kg General appearance: PRESENT: no acute distress, cooperative, disheveled, morbidly obese Head exam: PRESENT: atraumatic, normocephalic Eye exam: PRESENT: conjunctiva pale, EOMI. ABSENT: nystagmus, periorbital swelling, scleral icterus Mouth exam: PRESENT: dry mucosa, neck supple, tongue midline Neck exam: ABSENT: carotid bruit, JVD, lymphadenopathy, thyromegaly, tracheal deviation, tracheostomy Respiratory exam: PRESENT: decreased breath sounds, prolonged expiratory phas, rhonchi, wheezes. ABSENT: retraction, stridor Cardiovascular exam: PRESENT: RRR, +S1, +S2 Pulses: PRESENT: normal radial pulses GI/Abdominal exam: PRESENT: normal bowel sounds, soft Extremities exam: PRESENT: +1 edema. ABSENT: calf tenderness, clubbing Musculoskeletal exam: ABSENT: deformity, dislocation Neurological exam: PRESENT: awake, oriented to person, oriented to place Psychiatric exam: PRESENT: flat affect Skin exam: PRESENT: dry, warm Results Laboratory Results: 01/15/18 06:07 01/15/18 06:07 01/15/18 01/15/18 06:07 06:07 WBC 10.5 RBC 4.54 Hgb 13.2 Hct 39.9 MCV 88 MCH 29.0 MCHC 33.0 RDW 15.1 H Plt Count 167 Sodium 143.6 Potassium 3.7 Chloride 98 Carbon Dioxide 38 H Anion Gap 8 BUN 16 Creatinine 0.56 Est GFR ( Amer) > 60 Est GFR (Non-Af Amer) > 60 Glucose 93 Calcium 8.7 01/12/18 10:06 Leg - Sore Gram Stain - Final 01/12/18 10:06 Leg - Sore Wound Culture - Final NO GROWTH 3 DAYS 01/10/18 01/12/18 01/12/18 17:19 09:50 09:50 Creatine Kinase 24 L CK-MB (CK-2) 1.78 Troponin I 0.035 NT-Pro-B Natriuret Pep 984 H 01/13/18 01/15/18 06:50 06:07 Creatine Kinase CK-MB (CK-2) Troponin I NT-Pro-B Natriuret Pep 1060 H 1860 H Impressions: Foot X-Ray 01/10/18 13:58 IMPRESSION: Likely osteomyelitis involving the 4th distal phalanx. Lower Extremity MRI 01/10/18 15:35 IMPRESSION: SIGNIFICANTLY LIMITED EVALUATION OF THE LEFT FOOT HOWEVER THERE IS MR EVIDENCE OF OSTEOMYELITIS INVOLVING THE DISTAL PHALANX 4TH TOE LEFT FOOT SEEN ON RADIOGRAPHS. Chest/Abdomen CTA 01/12/18 00:00 IMPRESSION: UNREMARKABLE CTA CHEST WITHOUT PULMONARY EMBOLI. PRESUMED PULMONARY EDEMA WITH SMALL BILATERAL PLEURAL EFFUSIONS AND ASSOCIATED COMPRESSIVE ATELECTASIS. Chest X-Ray 01/14/18 00:00 IMPRESSION: Lungs currently clear. Assessment & Plan - Diagnosis (1) COPD (chronic obstructive pulmonary disease) Qualifiers: COPD type: unspecified COPD Qualified Code(s): J44.9 - Chronic obstructive pulmonary disease, unspecified Is this a current diagnosis for this admission?: Yes Plan: consider hold on spireva and advair for now Generic Name Dose Route Start Last Admin Trade Name Freq PRN Reason Stop Dose Admin Tiotropium [place] 1 cap 01/13/18 10:00 01/14/18 10:10 Spiriva Handihaler 5 Cap/Kit (18 Mcg/Cap) IH 02/12/18 09:59 1 cap DAILY ERICA Albuterol/Ipratropium 3 ml 01/14/18 13:25 Duoneb 3 Ml Ampul NEB 02/13/18 13:24 RTQ6HP PRN SHORTNESS OF BREATH Fluticasone/Salmeterol 1 inh 01/11/18 22:00 01/14/18 10:08 Advair 250-50 Diskus 14 Dose/Diskus IH 02/10/18 21:59 1 inh Q12 ERICA (2) Osteomyelitis of toe of left foot Is this a current diagnosis for this admission?: Yes Plan: Generic Name Dose Route Start Last Admin Trade Name Freq PRN Reason Stop Dose Admin Vancomycin HCl 1,000 mg/ 250 mls @ 166.667 mls/hr 01/14/18 22:00 Dextrose IV 01/21/18 21:59 Q12 ERICA Piperacillin Sod/Tazobactam 100 mls @ 200 mls/hr 01/10/18 21:00 01/14/18 08: 13 Sod 3.375 gm/ Sodium Chloride IV 01/17/18 20:59 3.375 gm Q6A ERICA (3) Accelerated essential hypertension Is this a current diagnosis for this admission?: Yes Plan: stable (4) Acute and chronic respiratory failure Qualifiers: Respiratory failure complication: hypoxia and hypercapnia Qualified Code(s) : J96.21 - Acute and chronic respiratory failure with hypoxia; J96.22 - Acute and chronic respiratory failure with hypercapnia; J96.22 - Acute and chronic respiratory failure with hypercapnia; J96.22 - Acute and chronic respiratory failure with hypercapnia Is this a current diagnosis for this admission?: Yes Plan: require NIPPV and supp O2 (5) Bilateral lower leg cellulitis Is this a current diagnosis for this admission?: Yes Plan: vancomycin and Zosyn (6) Morbid obesity with BMI of 40.0-44.9, adult Is this a current diagnosis for this admission?: Yes (7) ANNA (obstructive sleep apnea) Is this a current diagnosis for this admission?: Yes Plan: NIPPV (8) Pickwickian syndrome Is this a current diagnosis for this admission?: Yes Plan: The above patient has failed BiPAP. This patient would benefit from noninvasive mechanical ventilation via the trilogy AVAPS/AE and faster responding AVAPS rates. The trilogy is able to provide a target tidal volume and also adjusting the EPAP pressures to maintain a patent airway as well as an oral backup rate this machine will help improve PaCO2 levels. The severity of the patient's condition will lead to future hospitalizations and readmissions as well as life-threatening situations without the use of this device trilogy home vent needed for hypercapnic respiratory failure. Family Medical or [facility] to follow for trilogy set up.
--- NOTE | 2018-01-15 16:27 | PDOC PROGRESS REPORT ---
Subjective Progress Note for:: 01/15/18 Subjective:: The patient is a 72-year-old female with a past medical history of recurrent cellulitis to bilateral lower extremities, COPD on home O2, hypertension, PVD, arthritis, and morbid obesity who was admitted on 01/10/18 for bilateral lower extremity cellulitis and left fourth toe concerning for osteomyelitis and subsequently developed acute on chronic respiratory failure. Patient is seen on morning rounds. She is found resting in bed on supplemental oxygen via NC. She remains tachypneic with a respiratory rate in the high 20s to low 30s. She appears to be fatigued. She states that she continues to feel dyspnea at rest, but is no longer willing to wear BiPAP. She is unable to specify the reason for her refusal, other than that it is uncomfortable. She acknowledges that increased PCO2 level could be detrimental to her health and potentially fatal. This was presented to her in a variety of ways, and the patient acknowledged each time that failing to use BiPAP was putting her at risk for decreased mental alertness and . The topic of hospice/palliative care was presented and the patient was agreeable to meeting with the liaison during this admission. She denies fever, chills, chest pain, palpitations, cough, abdominal pain, nausea vomiting and diarrhea. She denies pain to her lower extremities. Reason For Visit: OSTEOMYELITIS Physical Exam Vital Signs: Temp Pulse Resp BP Pulse Ox 98.8 F 53 L 40 H 151/87 H 93 01/15/18 11:57 01/15/18 14:00 01/15/18 11:57 01/15/18 11:57 01/15/18 12:00 Pulse Oximeter Continuous Start: 01/12/18 10: 24 Freq: RTQ4 Status: Active Document 01/15/18 12:00 HCR (Rec: 01/15/18 14:26 HCR [email or web address]) Pulse Oximetry Assessment Oxygen Saturation (92-100) 93 Oxygen Flow Rate (L/min) 3 Oxygen Delivery Method Nasal Cannula Equipment Usage Equipment in Use Continuous SpO2 Machine # 7 Intake & Output 01/14/18 01/15/18 01/16/18 06:59 06:59 06:59 Intake Total 9189 8110 175 Output Total 6403 315 250 Balance -597 2484 -75 Weight 115.6 kg 115.8 kg General appearance: PRESENT: mild distress, morbidly obese, well-developed Head exam: PRESENT: atraumatic, normocephalic Eye exam: PRESENT: conjunctiva pale, EOMI, PERRLA. ABSENT: scleral icterus Mouth exam: PRESENT: moist, tongue midline Teeth exam: PRESENT: poor dentation Neck exam: ABSENT: carotid bruit, JVD, lymphadenopathy, thyromegaly Respiratory exam: PRESENT: crackles - Bibasilar, decreased breath sounds - Secondary to body habitus and poor inspiratory effort, prolonged expiratory phas , tachypnea. ABSENT: rales, rhonchi, wheezes Cardiovascular exam: PRESENT: RRR, +S1, +S2, tachycardia. ABSENT: diastolic murmur, rubs, systolic murmur Vascular exam: PRESENT: normal capillary refill GI/Abdominal exam: PRESENT: normal bowel sounds, soft. ABSENT: distended, guarding, mass, organolmegaly, rebound, tenderness Rectal exam: PRESENT: deferred Extremities exam: PRESENT: full ROM, +1 edema. ABSENT: calf tenderness, clubbing, pedal edema Neurological exam: PRESENT: alert, awake, oriented to person, oriented to place , oriented to time, oriented to situation, CN II-XII grossly intact. ABSENT: motor sensory deficit Psychiatric exam: PRESENT: appropriate affect, normal mood. ABSENT: homicidal ideation, suicidal ideation Skin exam: PRESENT: dry, erythema - Circumferential edema to bilateral lower legs; minimal improvement from yesterday, intact, warm, other - Venous stasis changes. ABSENT: cyanosis, rash Results Laboratory Results: 01/15/18 06:07 01/15/18 06:07 01/15/18 01/15/18 06:07 06:07 WBC 10.5 RBC 4.54 Hgb 13.2 Hct 39.9 MCV 88 MCH 29.0 MCHC 33.0 RDW 15.1 H Plt Count 167 Sodium 143.6 Potassium 3.7 Chloride 98 Carbon Dioxide 38 H Anion Gap 8 BUN 16 Creatinine 0.56 Est GFR ( Amer) > 60 Est GFR (Non-Af Amer) > 60 Glucose 93 Calcium 8.7 01/12/18 10:06 Leg - Sore Gram Stain - Final 01/12/18 10:06 Leg - Sore Wound Culture - Final NO GROWTH 3 DAYS 06/01/18 06/03/18 06/03/18 17:19 09:50 09:50 Creatine Kinase 24 L CK-MB (CK-2) 1.78 Troponin I 0.035 NT-Pro-B Natriuret Pep 984 H 18 01/15/18 06:50 06:07 Creatine Kinase CK-MB (CK-2) Troponin I NT-Pro-B Natriuret Pep 1060 H 1860 H Impressions: Foot X-Ray 01/10/18 13:58 IMPRESSION: Likely osteomyelitis involving the 4th distal phalanx. Lower Extremity MRI 01/10/18 15:35 IMPRESSION: SIGNIFICANTLY LIMITED EVALUATION OF THE LEFT FOOT HOWEVER THERE IS MR EVIDENCE OF OSTEOMYELITIS INVOLVING THE DISTAL PHALANX 4TH TOE LEFT FOOT SEEN ON RADIOGRAPHS. Chest/Abdomen CTA 01/12/18 00:00 IMPRESSION: UNREMARKABLE CTA CHEST WITHOUT PULMONARY EMBOLI. PRESUMED PULMONARY EDEMA WITH SMALL BILATERAL PLEURAL EFFUSIONS AND ASSOCIATED COMPRESSIVE ATELECTASIS. Chest X-Ray 01/14/18 00:00 IMPRESSION: Lungs currently clear. Assessment & Plan - Diagnosis (1) Acute respiratory failure with hypoxia and hypercapnia Is this a current diagnosis for this admission?: Yes Plan: The patient endorses a history of COPD requiring home O2 at 2 L/min. She also endorses a history of hypercapnic respiratory distress. CTA of the chest revealed pulmonary edema with small bilateral pleural effusions and associated compressive atelectasis. No pulmonary emboli. Chest x-ray today demonstrates resolution of recent pulmonary edema and pleural effusion. ABG yesterday while on BiPAP 7.46/60.2/72.3/42.0; somewhat improved. Patient is now refusing BiPAP. Blood cultures are negative at 4 days. We will obtain sputum culture. ProBNP elevated to 1860 The patient is currently admitted to [facility]. We will provide supplemental oxygen as needed to maintain oxygen saturations greater than 88%. BiPAP as needed; strongly encouraged use. Pulmonology arranging for trilogy. The patient is a DNR/DNI. Continue p.o. furosemide. Spironolactone initiated per cardiology. Echocardiogram is pending. Will provide scheduled and as needed nebulizer treatments. Continue home dose advair and spiriva. The patient is afebrile, leukocytosis has resolved, chest x-ray is negative for airspace disease, and although diminished her lung sounds are clear. I do not believe the patient has an active pneumonia. We will hold steroids at this time as she does not have any adventitious breath sounds. Palliative care has been consulted to establish goals of care. (2) Osteomyelitis of toe of left foot Is this a current diagnosis for this admission?: Yes Plan: Patient was admitted with concern for osteomyelitis of 4th toe to left foot. Xray was concerning for osteomyelitis. MRI was a suboptimal exam but does demonstrate osteomyelitis of the distal phalynx of the left 4th toe. Orthopedics is consulted; deemed nonoperative. Wound and blood cultures have no growth to date. I spoke with Dr. Lizama of infectious disease today. She acknowledged the difficulty of empirically covering for osteomyelitis without microbiology/ pathology/culture results. She advised that the patient's morbid obesity was a limiting factor for many oral medications as this would reduce the penetration of oral antibiotics and was taking very high-dose medication with associated side effects. She recommended beginning p.o. Levaquin 750 mg daily 6 weeks for decent coverage of strep and gram-negative bacterium. She did strongly advised that if the patient developed systemic symptoms, evidence of worsening osteomyelitis , or an external wound the patient should undergo surgical intervention for washout, debridement, and culture collection. IV vancomycin and Zosyn are discontinued as the patient is afebrile and WBCs have returned to normal. Begin p.o. Levaquin 750 mg daily. We will continue to monitor CBC, Sed rate, and CRP. Recommend avoidance of iron, calcium, magnesium, zinc supplementation while on p.o. Levaquin. If these medications are required they should be scheduled as far from Levaquin as possible. (3) Bilateral lower leg cellulitis Is this a current diagnosis for this admission?: Yes Plan: Minimal improvement. Patient endorses a history of frequent cellulitis of lower extremities. She has been treated at [facility] multiple times for the same complaint. Venous Doppler was negative for DVT. Arterial ultrasound demonstrated 20-49% stenosis of the right femoral artery and 20-49% stenosis of the left aorto Iliac inlet and flow. Cultures and antibiotics as above. ROSALINDA hose as tolerated. (4) COPD (chronic obstructive pulmonary disease) Qualifiers: COPD type: unspecified COPD Qualified Code(s): J44.9 - Chronic obstructive pulmonary disease, unspecified Is this a current diagnosis for this admission?: Yes Plan: Plan as above. (5) Essential hypertension Is this a current diagnosis for this admission?: Yes Plan: Will continue home dose Losartan. Now on Cored, spinal lactone, and furosemide per cardiology. (6) Morbid obesity Is this a current diagnosis for this admission?: Yes Plan: The patient's obesity will certainly prolong her recovery and place her at risk for delayed wound healing and worsening respiratory status. Dietary discretion is advised. Cardiac diet. Will consult the carburetor repairer for recommendations. (7) Hypokalemia Is this a current diagnosis for this admission?: Yes Plan: Replete. Monitor daily BMP and correct as needed. (8) Congestive heart failure Qualifiers: Heart failure chronicity: unspecified Is this a current diagnosis for this admission?: Yes Plan: Evidenced by dyspnea, orthopnea, basilar crackles, and BLE edema. ProBNP elevated to 1860. Echocardiogram pending. Cardiology has been consulted; appreciate their evaluation recommendations. - Time Time Spent with patient: 15-24 minutes Medications reviewed and adjusted accordingly: Yes Anticipated discharge: SNF - residential resident [facility]
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
[2018-01-15] MEDS: CARVEDILOL 3.125 MG TABLET PO SCH (21:32)
[2018-01-15] MEDS: FAMOTIDINE 20 MG TABLET PO SCH (21:32)
--- NOTE | 2018-01-15 23:31 | Progress Note ---
Provider Note Provider Note: Palliative Care Note. 01/15/18 12:30 pm and 5:00 pm Appreciate palliative referral with this [facility]/ostomylitis of her right lower extremity /toe. On arrival to patients room, she was upset because she had had BM and wanted nursing staff to come clean her up. She was having some noted dyspnea with sats in 87-88% range on oxygen per NC. She did not want to talk to me and asked me to "just go get the nurses" I returned about 5 PM to try to visit, but she was sleeping and I did not disturb her. Will attempt in two days when I return. Nonbillable visits.
[2018-01-16 06:34] LABS: BLOOD UREA NITROGEN 17 mg/dL (7-20); C-REACTIVE PROTEIN 46.4 mg/L (<10.0); CALCIUM 8.9 mg/dL (8.4-10.2); CHLORIDE 98 mmol/L (98-107); GLUCOSE 91 mg/dL (75-110); POTASSIUM 4.1 mmol/L (3.6-5.0); SODIUM 146.6 mmol/L (137-145)
[2018-01-16 06:38] LABS: ANION GAP 10 (5-19)
[2018-01-16 06:44] LABS: CARBON DIOXIDE 39 mmol/L (22-30)
[2018-01-16 06:50] LABS: HEMATOCRIT 42.1 % (36.0-47.0); HEMOGLOBIN 13.6 g/dL (12.0-15.5); MEAN CORPUSCULAR HEMOGLOBIN 29.4 pg (27.0-33.4); MEAN CORPUSCULAR HGB CONC 32.4 g/dL (32.0-36.0); MEAN CORPUSCULAR VOLUME 91 fl (80-97); PLATELET COUNT 187 10^3/uL (150-450); RED BLOOD COUNT 4.64 10^6/uL (3.72-5.28); RED CELL DISTRIBUTION WIDTH 15.4 % (11.5-14.0); WHITE BLOOD COUNT 11.5 10^3/uL (4.0-10.5)
[2018-01-16 07:30] LABS: ERYTHROCYTE SEDIMENTATION RATE 79 mm/hr (0-30)
[2018-01-16] MEDS ORDERED: FUROSEMIDE INJ/PF 20 MG/2 ML SDV ONE (07:57)
[2018-01-16 07:59] LABS: ARTERIAL BLOOD BASE EXCESS 14.7 mmol/L; ARTERIAL BLOOD H2CO3 4.36 mmol/L (1.05-1.35); ARTERIAL BLOOD HCO3 50.3 mmol/L (20-26); ARTERIAL BLOOD O2 SATURATION 95.3 % (94-98); ARTERIAL BLOOD PO2 104.2 mmHg (80-100); ARTERIAL BLOOD TOTAL CO2 54.7 mmol/L (21-25)
[2018-01-16 08:01] LABS: ARTERIAL BLOOD FIO2 3L
[2018-01-16 08:03] LABS: ARTERIAL BLOOD PCO2 144.9 mmHg (35-45); ARTERIAL BLOOD PH 7.16 (7.35-7.45)
[2018-01-16] MEDS ORDERED: MORPHINE SULFATE 10 MG/ML INJ IV PRN (08:19)
--- NOTE | 2018-01-16 08:19 | Progress Note ---
Provider Note Provider Note: Received a phone call from the nurse reporting that the patient is not arousable. Nursing confirms that the patient continued to refuse BiPAP overnight. Orders for stat ABG provided. Ms. Mindi Thompson's note was reviewed; unfortunately, the patient did not feel up to discussing Hospice services with our palliative care/hospice provider last night. We appreciate Ms. Thompson's efforts. Despite this, the patient has made her desires very clear to both myself and the nursing staff. Patient was able to teach back her understanding that her chronic respiratory failure was acutely worsened and that her CO2 level was dangerously low. She acknowledged that BiPAP would correct this, but multiple occasions refused to wear BiPAP. Yesterday, the patient confirmed to me that she is a DNR/DNI. The patient was examined; she is found to be tachypniec with shallow respirations and minimal air movement. Slight end expiratory wheezing and bibasilar crackles were noted. She demonstrated a delayed withdrawal to painful stimuli. A stat nebulizer treatment and order for IV Lasix 20 mg x1 is provided. ABG resulted 7.16/144.9/104.9/50.3 on 3lpm via NC. The patient's brother, Igor Martinez, was called and updated on the patient's recent clinical course, conversations had regarding patient's expressed desires for limited care/interventions, and lab results demonstrating elevated CO2. Mr. Martinez is encouraged to visit his sister as soon as possible as she is expected to pass away from her acute on chronic respiratory failure immanently. Mr. Martinez expressed appreciation for the update and understanding patient's expressed wishes. He states that he will contact all other family members.
[2018-01-16] MEDS ORDERED: FUROSEMIDE INJ/PF 20 MG/2 ML SDV IV ONE (09:00)
[2018-01-16] MEDS ORDERED: IPRATROPIUM/ALBUTEROL 0.5-2.5 MG/3 ML AMPUL NEB ONE (09:00)
[2018-01-16] MEDS: FUROSEMIDE 20 MG TABLET PO SCH (10:00)
[2018-01-16] MEDS: NYSTATIN TOPICAL POWDER 15 GM TP SCH ×2 (10:00→22:22)
[2018-01-16] MEDS: ENOXAPARIN SODIUM INJ 40 MG/0.4 ML DISP.SYRIN SUBCUT SCH (10:00)
[2018-01-16] MEDS: MULTIVITAMIN TABLET PO SCH (10:00)
[2018-01-16] MEDS: CARVEDILOL 3.125 MG TABLET PO SCH (10:00)
[2018-01-16] MEDS: MEDROXYPROGESTERONE ACET 2.5 MG TABLET PO SCH (10:00)
[2018-01-16] MEDS: FLUTICASONE/UMECLIDIN/VILANTER 100-62.5-25 MCG/DOSE IH SCH (10:00)
[2018-01-16] MEDS ORDERED: LEVOFLOXACIN 750 MG TABLET PO SCH (10:00)
[2018-01-16] MEDS: FLUTICASONE/SALMETEROL DISKUS 250-50 MCG/DOSE IH SCH (10:00)
[2018-01-16] MEDS: SPIRONOLACTONE 25 MG TABLET PO SCH (10:00)
[2018-01-16] MEDS: TIOTROPIUM BROMIDE DPI 5 CAP/KIT (18 MCG/CAP) IH SCH (10:00)
[2018-01-16] MEDS: LOSARTAN POTASSIUM 25 MG TABLET PO SCH (10:00)
[2018-01-16] MEDS: FAMOTIDINE 20 MG TABLET PO SCH (10:00)
--- NOTE | 2018-01-16 12:06 | XCELERA REPORT ---
[address] [address] Transthoracic Echocardiogram Report Name: MANNY GLOVER Age: 72 yrs Gender: Female : 1945 Patient Status: Inpatient Patient Location: [address] [place] [address] Study Date: 01/15/2018 10:33 AM Procedure: A complete two-dimensional transthoracic echocardiogram was performed (2D, M-mode, spectral and color flow Doppler). The study was technically difficult with many images being suboptimal in quality. Reason For Study: dyspnea, elevated BNP Ordering Physician: TERESA BRAN Performed By: Lety Go Interpretation Summary The study was technically difficult with many images being suboptimal in quality. The left ventricular ejection fraction is preserved. Consider additional methods to assess LVEF such as MUGA scan, CTA heart, cardiac MRI, BRADLEY, etc. if clinically indicated. There is mild concentric left ventricular hypertrophy. The left ventricle is grossly normal size. LV diastolic function could not be adequately assessed. Regional wall motion abnormalities cannot be excluded due to limited visualization. The right ventricle is not well visualized secondary to technical limitations The right atrium is mildly dilated. Borderline left atrial enlargement. There is no mitral valve stenosis. There is a trace amount of mitral regurgitation There is no aortic valve stenosis No aortic regurgitation is present. There is no tricuspid stenosis. There is a trace amount of tricuspid regurgitation Tricuspid regurgitation jet envelope not well defined to measure RV systolic pressure accurately. The aortic root is not well visualized but is probably normal size. The inferior vena cava was not well visualized There is no pericardial effusion. MMode/2D Measurements & Calculations RVDd: 2.8 cm LVIDd: 4.2 cm FS: 35.2 % LVOT diam: 1.8 cm IVSd: 1.3 cm LVIDs: 2.7 cm EDV(Teich): 78.2 ml LVOT area: 2.5 cm2 LVPWd: 1.2 cm ESV(Teich): 27.4 ml EF(Teich): 65.0 % Doppler Measurements & Calculations MV E max natacha: MV dec slope: Ao V2 max: LV V1 max P.1 cm/sec 485.4 cm/sec2 162.2 cm/sec 6.3 mmHg MV A max natacha: MV dec time: Ao max PG: LV V1 max: 124.8 cm/sec 0.22 sec 10.5 mmHg 125.3 cm/sec MV E/A: 0.89 MALIKA(V,D): 1.9 cm2 PA V2 max: 115.9 cm/sec PA max P.7 mmHg Left Ventricle The left ventricle is grossly normal size. There is mild concentric left ventricular hypertrophy. The left ventricular ejection fraction is preserved. Consider additional methods to assess LVEF such as MUGA scan, CTA heart, cardiac MRI, BRADLEY, etc. if clinically indicated. LV diastolic function could not be adequately assessed. Regional wall motion abnormalities cannot be excluded due to limited visualization. Right Ventricle The right ventricle is not well visualized secondary to technical limitations. Atria The right atrium is mildly dilated. Borderline left atrial enlargement. Mitral Valve The mitral valve is not well visualized. There is no mitral valve stenosis. There is a trace amount of mitral regurgitation. Aortic Valve The aortic valve is not well visualized secondary to technical limitations. There is no aortic valve stenosis. No aortic regurgitation is present. Tricuspid Valve The tricuspid valve is not well visualized secondary to technical limitations. There is no tricuspid stenosis. There is a trace amount of tricuspid regurgitation. Tricuspid regurgitation jet envelope not well defined to measure RV systolic pressure accurately. Pulmonic Valve The pulmonic valve is not well visualized. Great Vessels The aortic root is not well visualized but is probably normal size. The inferior vena cava was not well visualized. Effusions There is no pericardial effusion. : TERESA BRAN > Ugo Canas
--- NOTE | 2018-01-16 13:05 | PDOC PROGRESS REPORT ---
Subjective Progress Note for:: 01/16/18 Subjective:: A little better Reason For Visit: OSTEOMYELITIS Physical Exam Vital Signs: Temp Pulse Resp BP Pulse Ox 97.9 F 91 24 H 140/79 H 95 01/16/18 07:25 01/16/18 07:25 01/16/18 07:25 01/16/18 07:25 01/16/18 07:25 Pulse Oximeter Continuous Start: 01/12/18 10: 24 Freq: RTQ4 Status: Active Document 01/16/18 04:00 LRO (Rec: 01/16/18 06:23 LRO [email or web address]) Pulse Oximetry Assessment Oxygen Saturation (92-100) 93 Oxygen Flow Rate (L/min) 3 Oxygen Delivery Method Nasal Cannula Equipment Usage Equipment in Use Continuous SpO2 Machine # 7 Intake & Output 01/15/18 01/16/18 01/17/18 06:59 06:59 06:59 Intake Total 3159 717 Output Total 675 1250 Balance 2484 -533 Weight 115.8 kg 116.1 kg General appearance: PRESENT: no acute distress, cooperative, disheveled, morbidly obese Head exam: PRESENT: atraumatic, normocephalic Eye exam: PRESENT: conjunctiva pale, EOMI. ABSENT: nystagmus, periorbital swelling, scleral icterus Mouth exam: PRESENT: dry mucosa, neck supple, tongue midline Neck exam: ABSENT: carotid bruit, JVD, lymphadenopathy, thyromegaly, tracheal deviation, tracheostomy Respiratory exam: PRESENT: decreased breath sounds, prolonged expiratory phas, rhonchi, unlabored, wheezes. ABSENT: retraction, stridor Cardiovascular exam: PRESENT: RRR, +S1, +S2 Pulses: PRESENT: normal radial pulses GI/Abdominal exam: PRESENT: normal bowel sounds, soft Extremities exam: ABSENT: calf tenderness, clubbing Musculoskeletal exam: ABSENT: ambulatory, deformity, dislocation Neurological exam: PRESENT: awake, oriented to person, oriented to place Psychiatric exam: PRESENT: depressed, flat affect Skin exam: PRESENT: dry, warm Results Laboratory Results: 01/16/18 05:35 01/16/18 05:35 01/16/18 01/16/18 01/16/18 05:35 05:35 07:50 WBC 11.5 H RBC 4.64 Hgb 13.6 Hct 42.1 MCV 91 MCH 29.4 MCHC 32.4 RDW 15.4 H Plt Count 187 Carbonic Acid 4.36 H HCO3/H2CO3 Ratio 11:1 ABG pH 7.16 L* ABG pCO2 144.9 H* ABG pO2 104.2 H ABG HCO3 50.3 H ABG O2 Saturation 95.3 ABG Base Excess 14.7 FiO2 3L Sodium 146.6 H Potassium 4.1 Chloride 98 Carbon Dioxide 39 H Anion Gap 10 BUN 17 Creatinine 0.55 Est GFR ( Amer) > 60 Est GFR (Non-Af Amer) > 60 Glucose 91 Calcium 8.9 C-Reactive Protein 46.4 H 01/10/18 20:16 Blood Blood Culture - Final NO GROWTH IN 5 DAYS 01/10/18 17:19 Blood Blood Culture - Final NO GROWTH IN 5 DAYS 01/12/18 10:06 Leg - Sore Gram Stain - Final 01/12/18 10:06 Leg - Sore Wound Culture - Final NO GROWTH 3 DAYS 01/10/18 01/12/18 01/12/18 17:19 09:50 09:50 Creatine Kinase 24 L CK-MB (CK-2) 1.78 Troponin I 0.035 NT-Pro-B Natriuret Pep 984 H 01/13/18 01/15/18 06:50 06:07 Creatine Kinase CK-MB (CK-2) Troponin I NT-Pro-B Natriuret Pep 1060 H 1860 H Impressions: Foot X-Ray 01/10/18 13:58 IMPRESSION: Likely osteomyelitis involving the 4th distal phalanx. Lower Extremity MRI 01/10/18 15:35 IMPRESSION: SIGNIFICANTLY LIMITED EVALUATION OF THE LEFT FOOT HOWEVER THERE IS MR EVIDENCE OF OSTEOMYELITIS INVOLVING THE DISTAL PHALANX 4TH TOE LEFT FOOT SEEN ON RADIOGRAPHS. Chest/Abdomen CTA 01/12/18 00:00 IMPRESSION: UNREMARKABLE CTA CHEST WITHOUT PULMONARY EMBOLI. PRESUMED PULMONARY EDEMA WITH SMALL BILATERAL PLEURAL EFFUSIONS AND ASSOCIATED COMPRESSIVE ATELECTASIS. Chest X-Ray 01/14/18 00:00 IMPRESSION: Lungs currently clear. Assessment & Plan - Diagnosis (1) COPD (chronic obstructive pulmonary disease) Qualifiers: COPD type: unspecified COPD Qualified Code(s): J44.9 - Chronic obstructive pulmonary disease, unspecified Is this a current diagnosis for this admission?: Yes Plan: consider hold on spireva and advair for now Generic Name Dose Route Start Last Admin Trade Name Freq PRN Reason Stop Dose Admin Tiotropium [place] 1 cap 01/13/18 10:00 01/14/18 10:10 Spiriva [place] 5 Cap/Kit (18 Mcg/Cap) IH 02/12/18 09:59 1 cap DAILY ERICA Albuterol/Ipratropium 3 ml 01/14/18 13:25 Duoneb 3 Ml Ampul NEB 02/13/18 13:24 RTQ6HP PRN SHORTNESS OF BREATH Fluticasone/Salmeterol 1 inh 01/11/18 22:00 01/14/18 10:08 Advair 250-50 Diskus 14 Dose/Diskus IH 02/10/18 21:59 1 inh Q12 ERICA (2) Osteomyelitis of toe of left foot Is this a current diagnosis for this admission?: Yes Plan: Generic Name Dose Route Start Last Admin Trade Name Freq PRN Reason Stop Dose Admin Vancomycin HCl 1,000 mg/ 250 mls @ 166.667 mls/hr 01/14/18 22:00 Dextrose IV 01/21/18 21:59 Q12 ERICA Piperacillin Sod/Tazobactam 100 mls @ 200 mls/hr 01/10/18 21:00 01/14/18 08: 13 Sod 3.375 gm/ Sodium Chloride IV 01/17/18 20:59 3.375 gm Q6A ERICA (3) Accelerated essential hypertension Is this a current diagnosis for this admission?: Yes Plan: stable (4) Acute and chronic respiratory failure Qualifiers: Respiratory failure complication: hypoxia and hypercapnia Qualified Code(s) : J96.21 - Acute and chronic respiratory failure with hypoxia; J96.22 - Acute and chronic respiratory failure with hypercapnia; J96.22 - Acute and chronic respiratory failure with hypercapnia; J96.22 - Acute and chronic respiratory failure with hypercapnia Is this a current diagnosis for this admission?: Yes Plan: require NIPPV and supp O2 (5) Bilateral lower leg cellulitis Is this a current diagnosis for this admission?: Yes Plan: vancomycin and Zosyn (6) Morbid obesity with BMI of 40.0-44.9, adult Is this a current diagnosis for this admission?: Yes (7) ANNA (obstructive sleep apnea) Is this a current diagnosis for this admission?: Yes Plan: NIPPV (8) Pickwickian syndrome Is this a current diagnosis for this admission?: Yes Plan: The above patient has failed BiPAP. This patient would benefit from noninvasive mechanical ventilation via the trilogy AVAPS/AE and faster responding AVAPS rates. The trilogy is able to provide a target tidal volume and also adjusting the EPAP pressures to maintain a patent airway as well as an oral backup rate this machine will help improve PaCO2 levels. The severity of the patient's condition will lead to future hospitalizations and readmissions as well as life-threatening situations without the use of this device trilogy home vent needed for hypercapnic respiratory failure. [facility] or [facility] to follow for trilogy set up. - Plan Summary Plan Summary: Patient has agreed to palliative care we will sign off for now please call if I can be of additional assistance thank you very much for allowing me to see Mrs. Martinez and help participate in her care
[2018-01-16] MEDS ORDERED: LORAZEPAM INJ 2 MG/1 ML VIAL IV PRN (13:36)
[2018-01-16] MEDS ORDERED: ATROPINE SULFATE 1% OPH SOLN 5 ML BOTTLE SL PRN (13:37)
--- NOTE | 2018-01-16 18:16 | PDOC PROGRESS REPORT ---
Subjective Progress Note for:: 01/16/18 Subjective:: The patient is a 72-year-old female with a past medical history of recurrent cellulitis to bilateral lower extremities, COPD on home O2, hypertension, PVD, arthritis, and morbid obesity who was admitted on 01/10/18 for bilateral lower extremity cellulitis and left fourth toe concerning for osteomyelitis and subsequently developed acute on chronic respiratory failure. Received report from nursing staff that the patient was unarousable. She was seen moments following the report. She was found with head of bed elevated to 45 and on supplemental oxygen at 3lpm. The patient was noted to be maintaining her oxygen saturation at 94%, however she was tachypneic with respiratory rate of 24. Her breathing was shallow with minimal air exchange; slight bibasilar crackles and end expiratory wheezing was noted. The patient was minimally responsive to painful stimuli; demonstrating delayed withdrawal from sternal rub. ABG confirmed respiratory acidosis with PCO2 144.9. The patient's brother, Igor Martinez, was called and updated on the patient's current condition. Reason For Visit: OSTEOMYELITIS Physical Exam Vital Signs: Temp Pulse Resp BP Pulse Ox 97.5 F 81 26 H 158/86 H 96 01/16/18 12:03 01/16/18 14:00 01/16/18 12:03 01/16/18 12:03 01/16/18 12:03 Pulse Oximeter Continuous Start: 01/12/18 10: 24 Freq: RTQ4 Status: Complete Document 01/16/18 09:01 HCR (Rec: 01/16/18 10:20 HCR [email or web address]) Pulse Oximetry Assessment Oxygen Saturation (92-100) 94 Oxygen Flow Rate (L/min) 3 Oxygen Delivery Method Nasal Cannula Equipment Usage Equipment in Use Continuous SpO2 Machine # 7 Intake & Output 01/15/18 01/16/18 01/17/18 06:59 06:59 06:59 Intake Total 2287 717 Output Total 892 0560 Balance 2484 -533 Weight 115.8 kg 116.1 kg General appearance: PRESENT: mild distress, morbidly obese, well-developed, well -nourished Head exam: PRESENT: atraumatic, normocephalic Eye exam: PRESENT: conjunctiva pale, PERRLA. ABSENT: scleral icterus Mouth exam: PRESENT: moist Neck exam: ABSENT: carotid bruit, JVD, lymphadenopathy, thyromegaly Respiratory exam: PRESENT: crackles - Bibasilar, decreased breath sounds - Throughout; minimal exchange., prolonged expiratory phas, tachypnea, wheezes - Occasional expiratory wheezing. ABSENT: rales, rhonchi Cardiovascular exam: PRESENT: RRR, +S1, +S2. ABSENT: diastolic murmur, rubs, systolic murmur Vascular exam: PRESENT: normal capillary refill, pallor GI/Abdominal exam: ABSENT: distended, guarding, mass, organolmegaly, rebound, tenderness Rectal exam: PRESENT: deferred Extremities exam: ABSENT: calf tenderness, clubbing, pedal edema Neurological exam: PRESENT: other - Obtunded. ABSENT: motor sensory deficit Psychiatric exam: ABSENT: homicidal ideation, suicidal ideation Skin exam: PRESENT: dry, erythema, pallor - Circumferential erythema bilateral lower extremities; unchanged from yesterday. ABSENT: cyanosis, rash Results Laboratory Results: 01/16/18 05:35 01/16/18 05:35 01/16/18 01/16/18 01/16/18 05:35 05:35 07:50 WBC 11.5 H RBC 4.64 Hgb 13.6 Hct 42.1 MCV 91 MCH 29.4 MCHC 32.4 RDW 15.4 H Plt Count 187 Carbonic Acid 4.36 H HCO3/H2CO3 Ratio 11:1 ABG pH 7.16 L* ABG pCO2 144.9 H* ABG pO2 104.2 H ABG HCO3 50.3 H ABG O2 Saturation 95.3 ABG Base Excess 14.7 FiO2 3L Sodium 146.6 H Potassium 4.1 Chloride 98 Carbon Dioxide 39 H Anion Gap 10 BUN 17 Creatinine 0.55 Est GFR ( Amer) > 60 Est GFR (Non-Af Amer) > 60 Glucose 91 Calcium 8.9 C-Reactive Protein 46.4 H 01/10/18 20:16 Blood Blood Culture - Final NO GROWTH IN 5 DAYS 01/10/18 17:19 Blood Blood Culture - Final NO GROWTH IN 5 DAYS 01/10/18 01/12/18 01/12/18 17:19 09:50 09:50 Creatine Kinase 24 L CK-MB (CK-2) 1.78 Troponin I 0.035 NT-Pro-B Natriuret Pep 984 H 01/13/18 01/15/18 06:50 06:07 Creatine Kinase CK-MB (CK-2) Troponin I NT-Pro-B Natriuret Pep 1060 H 1860 H Impressions: Foot X-Ray 01/10/18 13:58 IMPRESSION: Likely osteomyelitis involving the 4th distal phalanx. Lower Extremity MRI 01/10/18 15:35 IMPRESSION: SIGNIFICANTLY LIMITED EVALUATION OF THE LEFT FOOT HOWEVER THERE IS MR EVIDENCE OF OSTEOMYELITIS INVOLVING THE DISTAL PHALANX 4TH TOE LEFT FOOT SEEN ON RADIOGRAPHS. Chest/Abdomen CTA 01/12/18 00:00 IMPRESSION: UNREMARKABLE CTA CHEST WITHOUT PULMONARY EMBOLI. PRESUMED PULMONARY EDEMA WITH SMALL BILATERAL PLEURAL EFFUSIONS AND ASSOCIATED COMPRESSIVE ATELECTASIS. Chest X-Ray 01/14/18 00:00 IMPRESSION: Lungs currently clear. Assessment & Plan - Diagnosis (1) Acute respiratory failure with hypoxia and hypercapnia Is this a current diagnosis for this admission?: Yes Plan: Acutely decompensated. And interstitial lung disease. The patient endorses a history of COPD requiring home O2 at 2 L/min. She also endorses a history of hypercapnic respiratory distress. Previously established DNR/DNI. CTA of the chest revealed pulmonary edema with small bilateral pleural effusions and associated compressive atelectasis. No pulmonary emboli. Chest x-ray today demonstrates resolution of recent pulmonary edema and pleural effusion. ABG while on BiPAP 7.46/60.2/72.3/42.0; somewhat improved. Patient is now refusing BiPAP. Blood cultures are negative at 4 days. We will obtain sputum culture. ProBNP elevated to 1860 ABG today 7.16/144.9/104.9/50.3 on 3lpm via [place] A long discussion was had with the patient's brother regarding her expressed wishes for care. The patient had discussed with both myself and the nursing staff yesterday her desire to discontinue BiPAP and full understanding that this would likely due to elevated CO2 and potential end of life. The patient was agreeable to meeting with hospice services, however, did not feel well enough for a full conversation yesterday evening. The patient's current mental status, vital signs, and laboratory results confirmed progression of her end-stage lung disease. The brother indicated his desire to her his sister's wishes; comfort care measures are instituted. Supplemental oxygen as needed for comfort. One-time dose of IV Lasix provided for comfort. IV morphine as needed pain or tachypnea. IV Ativan as needed for anxiety, agitation, seizure. Atropine sublingual drops for oral secretions. (2) Osteomyelitis of toe of left foot Is this a current diagnosis for this admission?: Yes Plan: Patient was admitted with concern for osteomyelitis of 4th toe to left foot. Xray was concerning for osteomyelitis. MRI was a suboptimal exam but does demonstrate osteomyelitis of the distal phalynx of the left 4th toe. Orthopedics is consulted; deemed nonoperative. Wound and blood cultures have no growth to date. Now comfort care measures for end-stage lung disease; acutely decompensated chronic respiratory failure. All p.o. medications, antibiotics, and IV fluids are discontinued. Plan as above. (3) Bilateral lower leg cellulitis Is this a current diagnosis for this admission?: Yes Plan: Minimal improvement. Patient endorses a history of frequent cellulitis of lower extremities. She has been treated at [facility] multiple times for the same complaint. Venous Doppler was negative for DVT. Arterial ultrasound demonstrated 20-49% stenosis of the right femoral artery and 20-49% stenosis of the left aorto Iliac inlet and flow. Now comfort care measures for end-stage lung disease; acutely decompensated chronic respiratory failure. All p.o. medications, antibiotics, and IV fluids are discontinued. Plan as above. (4) COPD (chronic obstructive pulmonary disease) Qualifiers: COPD type: unspecified COPD Qualified Code(s): J44.9 - Chronic obstructive pulmonary disease, unspecified Is this a current diagnosis for this admission?: Yes Plan: Plan as above. (5) Essential hypertension Is this a current diagnosis for this admission?: Yes Plan: Now on comfort care measures for end-stage lung disease; acutely decompensated chronic respiratory failure. All p.o. medications, antibiotics, and IV fluids are discontinued. Plan as above. (6) Morbid obesity Is this a current diagnosis for this admission?: Yes Plan: NPO (7) Hypokalemia Is this a current diagnosis for this admission?: Yes Plan: Replete. (8) Congestive heart failure Qualifiers: Heart failure chronicity: unspecified Is this a current diagnosis for this admission?: Yes Plan: Now comfort care measures for end-stage lung disease; acutely decompensated chronic respiratory failure. All p.o. medications, antibiotics, and IV fluids are discontinued. Plan as above. - Time Time Spent with patient: 35 or more minutes Medications reviewed and adjusted accordingly: Yes
--- NOTE | 2018-01-16 20:27 | PDOC PROGRESS REPORT ---
Subjective Progress Note for:: 01/16/18 Subjective:: Patient is noted to be significantly worse and currently very lethargic and obtunded with very high CO2 level. Currently DNR and attempts are being made for patient to be comfort care. Previously she had refused to wear bilevel therapy. Patient does not want to be intubated in the first place. Reason For Visit: OSTEOMYELITIS Physical Exam Vital Signs: Temp Pulse Resp BP Pulse Ox 97.5 F 81 26 H 158/86 H 96 01/16/18 12:03 01/16/18 14:00 01/16/18 12:03 01/16/18 12:03 01/16/18 12:03 Pulse Oximeter Continuous Start: 01/12/18 10: 24 Freq: RTQ4 Status: Complete Document 01/16/18 09:01 HCR (Rec: 01/16/18 10:20 HCR [email or web address]) Pulse Oximetry Assessment Oxygen Saturation (92-100) 94 Oxygen Flow Rate (L/min) 3 Oxygen Delivery Method Nasal Cannula Equipment Usage Equipment in Use Continuous SpO2 Machine # 7 Intake & Output 01/15/18 01/16/18 01/17/18 06:59 06:59 06:59 Intake Total 3159 717 0 Output Total 675 1250 900 Balance 1054 -533 -900 Weight 115.8 kg 116.1 kg Exam: GENERAL: well-nourished and in no acute distress. Patient is very lethargic and obtunded.. HEAD: Atraumatic, normocephalic. EYES: Pupils equal round and reactive to light, extraocular movements intact, sclera anicteric, conjunctiva are normal. ENT: TMs normal, nares patent, oropharynx clear without exudates. Moist mucous membranes. No oral ulcerations or bleeding gums noted NECK: supple without lymphadenopathy or JVD. Trachea is central. No cervical or axillary lymphadenopathy noted. Carotids are 2+ LUNGS: Breath sounds bibasilar fine crackles at bases. No significant dullness noted. CHEST: Palpation of chest wall shows no significant chest wall tenderness. HEART: [place] [employer], No PSH, 2/6 MERLIN aortic area, 1/6 acharya systolic murmur mitral area, rubs or gallops. ABDOMEN: Soft, no significant tenderness appreciated, normoactive bowel sounds. No guarding, no rebound. No rigidity noted . No masses appreciated. EXTREMITIES: Pedal pulses are 1-2+, no calf tenderness noted, 2+ chronic pedal edema noted. No clubbing or cyanosis. NEUROLOGICAL: Patient is alert but is not able to participate in neurological exam because of patient's current mental status PSYCH: Patient cannot participate in a neurologic and psych exam because of the patient's current mental status SKIN: Significant lower extremity erythematous rash noted. MUSCULOSKELETAL EXAM: No significant joint swelling noted. Results Laboratory Results: 01/16/18 05:35 01/16/18 05:35 01/16/18 01/16/18 01/16/18 05:35 05:35 07:50 WBC 11.5 H RBC 4.64 Hgb 13.6 Hct 42.1 MCV 91 MCH 29.4 MCHC 32.4 RDW 15.4 H Plt Count 187 Carbonic Acid 4.36 H HCO3/H2CO3 Ratio 11:1 ABG pH 7.16 L* ABG pCO2 144.9 H* ABG pO2 104.2 H ABG HCO3 50.3 H ABG O2 Saturation 95.3 ABG Base Excess 14.7 FiO2 3L Sodium 146.6 H Potassium 4.1 Chloride 98 Carbon Dioxide 39 H Anion Gap 10 BUN 17 Creatinine 0.55 Est GFR ( Amer) > 60 Est GFR (Non-Af Amer) > 60 Glucose 91 Calcium 8.9 C-Reactive Protein 46.4 H 01/10/18 20:16 Blood Blood Culture - Final NO GROWTH IN 5 DAYS 01/10/18 17:19 Blood Blood Culture - Final NO GROWTH IN 5 DAYS 01/10/18 01/12/18 01/12/18 17:19 09:50 09:50 Creatine Kinase 24 L CK-MB (CK-2) 1.78 Troponin I 0.035 NT-Pro-B Natriuret Pep 984 H 01/13/18 01/15/18 06:50 06:07 Creatine Kinase CK-MB (CK-2) Troponin I NT-Pro-B Natriuret Pep 1060 H 1860 H Impressions: Foot X-Ray 01/10/18 13:58 IMPRESSION: Likely osteomyelitis involving the 4th distal phalanx. Lower Extremity MRI 01/10/18 15:35 IMPRESSION: SIGNIFICANTLY LIMITED EVALUATION OF THE LEFT FOOT HOWEVER THERE IS MR EVIDENCE OF OSTEOMYELITIS INVOLVING THE DISTAL PHALANX 4TH TOE LEFT FOOT SEEN ON RADIOGRAPHS. Chest/Abdomen CTA 01/12/18 00:00 IMPRESSION: UNREMARKABLE CTA CHEST WITHOUT PULMONARY EMBOLI. PRESUMED PULMONARY EDEMA WITH SMALL BILATERAL PLEURAL EFFUSIONS AND ASSOCIATED COMPRESSIVE ATELECTASIS. Chest X-Ray 01/14/18 00:00 IMPRESSION: Lungs currently clear. Assessment & Plan - Diagnosis (1) Congestive heart failure Qualifiers: Heart failure chronicity: unspecified Is this a current diagnosis for this admission?: Yes (2) COPD (chronic obstructive pulmonary disease) Qualifiers: COPD type: unspecified COPD Qualified Code(s): J44.9 - Chronic obstructive pulmonary disease, unspecified Is this a current diagnosis for this admission?: Yes (3) Acute and chronic respiratory failure Qualifiers: Respiratory failure complication: hypoxia and hypercapnia Qualified Code(s) : J96.21 - Acute and chronic respiratory failure with hypoxia; J96.22 - Acute and chronic respiratory failure with hypercapnia; J96.22 - Acute and chronic respiratory failure with hypercapnia; J96.22 - Acute and chronic respiratory failure with hypercapnia Is this a current diagnosis for this admission?: Yes (4) Bilateral lower leg cellulitis Is this a current diagnosis for this admission?: Yes (5) Essential hypertension Is this a current diagnosis for this admission?: Yes (6) Generalized weakness Is this a current diagnosis for this admission?: Yes (7) Morbid obesity Is this a current diagnosis for this admission?: Yes - Notes Notes: Patient has had significant deterioration in her general condition. Patient has refused bilevel therapy and previously did not want to be intubated. Patient has severe CO2 retention. I believe attempts at being made to get a comfort care status. 2D echo results were reviewed. At this point continue with comfort care. May wish to continue diuretic therapy. Will sign off. Please reconsult if needed. - Time Time with patient: 15-25 minutes Medications reviewed and adjusted accordingly: Yes
[2018-01-17 04:12] VITALS: BP 111/52
--- NOTE | 2018-01-19 21:32 | Death Summary ---
Summary Date : 01/17/18 Time of :: 07:12 Autopsy: No Resuscitation Status: Comfort Measures Only Primary Care Provider: Dr. Chinyere Saunders Consulting Provider: Dr. Vidal. Dr. Canas. Dr. Lizama - Final Diagnosis (1) Acute on chronic respiratory failure with hypoxia and hypercapnia Is this a current diagnosis for this admission?: Yes (2) Osteomyelitis of toe of left foot Is this a current diagnosis for this admission?: Yes (3) Bilateral lower leg cellulitis Is this a current diagnosis for this admission?: Yes (4) COPD (chronic obstructive pulmonary disease) Is this a current diagnosis for this admission?: Yes (5) Essential hypertension Is this a current diagnosis for this admission?: Yes (6) Morbid obesity Is this a current diagnosis for this admission?: Yes (7) Hypokalemia Is this a current diagnosis for this admission?: Yes (8) Congestive heart failure Is this a current diagnosis for this admission?: Yes Hospital Course:: Patient was admitted with concern for osteomyelitis of 4th toe to left foot with increased erythema, edema, and tenderness to bilateral lower legs consistent with acute worsening of chronic cellulitis. Xray was concerning for osteomyelitis. MRI was a suboptimal exam but does demonstrate osteomyelitis of the distal phalynx of the left 4th toe. Venous Doppler was negative for DVT. Arterial ultrasound demonstrated 20-49% stenosis of the right femoral artery and 20-49% stenosis of the left aorto Iliac inlet and flow. Orthopedics ws consulted; deemed nonoperative. Wound and blood cultures had no growth to date. The patient was empirically placed on IV vancomycin and Zosyn. She demonstrated minimal improvement in the errythema to the area of chronic cellulitis, but her edema and pain did improve. Her leukocytosis and fever resolved. Infectious disease was consulted for antibiotic recommendations in the absence of microbiology/pathology guidance. Recommendations were for p.o. levaquin x 6 weeks. IV antibiotics were discontinued and the patient was transitioned to levequin on admission day #6. This change was made with careful consideration to her respiratory status as she developed acute on chronic respiratory failure on admission day #3. The patient was admitted with known history of COPD and baseline oxygen dependence. On admission day #2, the patient was noted to be mildly tachypneic and baseline ABG was obtained, demonstrating compensated respiratory acidosis with hypercapnia. She acutely decompensated over night. The patient was adamantly against being intubated and confirmed her desire to be a DNR/DNI. She was placed on BiPAP with COPD treatment and respiratory failure management optimized with steroid therapy, nebulizer treatments, and symptomatic care. Pulmonology consultation was initiated. Further evaluation included: CTA of the chest revealed pulmonary edema with small bilateral pleural effusions and associated compressive atelectasis. No pulmonary emboli. Repeat Chest x-ray demonstrated resolution of recent pulmonary edema and pleural effusion. No evidence of infiltrate. Blood cultures are negative at 4 days. ProBNP elevated to 1860 She improved on BiPAP with resolution of her acidosis, downward trend in pCO2, and improved oxygenation. However, after approximately 36 hours of compliant BiPAP use, the patient began to refuse wearing the device. She was educated on multiple occasions by nursing staff, hospitalist, wardrobe stylist, and production welder regarding her absolute need for ventilation support. The patient acknowledge likely outcomes of continued refusal and was agreeable to meeting with Palliative Care and Hospice services. On admission day #7, the patient was noted to be obtunded. ABG revealed severe respiratory acidosis with pCO2 of 144.9. The patient's next of kin, Gonzalez Martinez (brother) was notified of the patient's status and her expressed wishes. The brother indicated his desire to her his sister's wishes and comfort care measures are instituted. The following morning, the patient expectantly of acute on chronic respiratory failure secondary to chronic obstructive pulmonary disease and interstitial lung disease complicated by diastolic congestive heart failure and morbid obesity.
== END 2018-01-17 08:45 | DRG 637 ==
LOC: ER 13:09 → EH 15:49 → 4S 18:22 → 3S 01-12 13:15
PROVIDERS: ADMIT Emergency Medicine; ATTEND Emergency Medicine
PROC: 3E0F73Z Introduction of Anti-inflammatory into Respiratory Tract, Via Natural or Artificial Opening (ICD-10-PCS; 2018-01-11)
PROC: 5A09557 Assistance with Respiratory Ventilation, Greater than 96 Consecutive Hours, Continuous Positive Airway Pressure (ICD-10-PCS; principal; 2018-01-12)
DX: E11.69 Type 2 diabetes mellitus with other specified complication (principal); J96.22 Acute and chronic respiratory failure with hypercapnia; J96.21 Acute and chronic respiratory failure with hypoxia; M86.672 Other chronic osteomyelitis, left ankle and foot; L03.116 Cellulitis of left lower limb; L03.115 Cellulitis of right lower limb; Z68.42 Body mass index [BMI] 45.0-49.9, adult; J84.9 Interstitial pulmonary disease, unspecified; I50.30 Unspecified diastolic (congestive) heart failure; E66.2 Morbid (severe) obesity with alveolar hypoventilation; Z51.5 Encounter for palliative care; E11.51 Type 2 diabetes mellitus with diabetic peripheral angiopathy without gangrene; J44.9 Chronic obstructive pulmonary disease, unspecified; M19.90 Unspecified osteoarthritis, unspecified site; I11.0 Hypertensive heart disease with heart failure; E87.6 Hypokalemia; Z99.81 Dependence on supplemental oxygen; Z66 Do not resuscitate; Z53.29 Procedure and treatment not carried out because of patient's decision for other reasons; Z82.49 Family history of ischemic heart disease and other diseases of the circulatory system; Z82.3 Family history of stroke; Z91.038 Other insect allergy status; Z91.018 Allergy to other foods; Z82.61 Family history of arthritis; Z87.81 Personal history of (healed) traumatic fracture
CPT/HCPCS: 36415; 36600; 71045; 71275; 80048; 80053; 80076; 80202; 81001; 82550; 82553; 82565; 82803; 82962; 83605; 83735; 83880; 84100; 84484; 85025; 85027; 85379; 85652; 86140; 87040; 87070; 87205; 93005; 93010; 93306; 93925; 93970; 94640; 94660; 94762; 99285; J1650; J1940; J2270; J2543; J3370; J3480; J3490; J7030; J7060; J7620; S0164